=== PATIENT | male | born 1955 | race Hispanic/Latino ===

== ENCOUNTER 2018-03-27 14:07 | Inpatient (IN) | payer MEDICARE ==
[2018-03-27 14:17] VITALS: BMI 21.7
--- NOTE | 2018-03-27 14:29 | ED PDOC ---
Arrival/HPI - General Chief Complaint: Trauma Time Seen by Provider: 03/27/18 14:22 Historian: Patient - History of Present Illness Narrative History of Present Illness (Text): 03/27/18 14:50 63 year old male, whose PMH includes ETOH abuse and COPD, who presents to the emergency department complaining of shortness of breath for several days. Patient is also complaining of mechanical fall landing on left rib cage 3 days ago and states having no symptoms prior to fall. No other complaints were made. Time/Duration: < week Symptom Onset: Sudden Symptom Course: Unchanged Context: Home Past Medical History - Provider Review Nursing Documentation Reviewed: Yes - Pulmonary Hx Asthma: Yes Hx Chronic Obstructive Pulmonary Disease (COPD): Yes - Psychiatric Hx Substance Use: No - Anesthesia Hx Anesthesia: No Hx Anesthesia Reactions: No Hx Malignant Hyperthermia: No Family/Social History - Physician Review Nursing Documentation Reviewed: Yes Family/Social History: Unknown Family HX Smoking Status: Light Smoker < 10 Cigarettes Daily Hx Alcohol Use: Yes Frequency of alcohol use: Daily Hx Substance Use: No Allergies/Home Meds Allergies/Adverse Reactions: Allergies No Known Allergies Allergy (Verified 03/27/18 14:13) Review of Systems - Physician Review All systems were reviewed & negative as marked: Yes - Review of Systems Constitutional: absent: Fevers Respiratory: SOB Cardiovascular: absent: Chest Pain, Palpitations Gastrointestinal: absent: Abdominal Pain Musculoskeletal: Other (left rib cage) Physical Exam Vital Signs Reviewed: Yes Vital Signs Temp Pulse Resp BP Pulse Ox 03/27/18 16:34 103 H 18 137/79 100 03/27/18 16:16 111 H 18 147/96 H 99 03/27/18 15:46 109 H 18 197/114 H 98 03/27/18 14:15 98.2 F 115 H 20 165/97 H 93 L Temperature: Afebrile Blood Pressure: Hypertensive Pulse: Tachycardic Respiratory Rate: Agonal Appearance: Positive for: Well-Appearing, Non-Toxic, Comfortable Pain Distress: Mild Mental Status: Positive for: Alert and Oriented X 3 - Systems Exam Head: Present: Atraumatic, Normocephalic Pupils: Present: PERRL Extroacular Muscles: Present: EOMI Conjunctiva: Present: Normal Respiratory/Chest: Present: Wheezes (bilateral ). No: Clear to Auscultation, Respiratory Distress, Accessory Muscle Use, Retracting, Rhonchi Cardiovascular: Present: Regular Rate and Rhythm, Normal S1, S2. No: Murmurs Abdomen: No: Tenderness, Distention, Peritoneal Signs, Rebound, Guarding Neurological: Present: GCS=15, CN II-XII Intact, Speech Normal Skin: Present: Warm, Dry, Normal Color. No: Rashes Psychiatric: Present: Alert, Oriented x 3, Normal Insight, Normal Concentration Medical Decision Making ED Course and Treatment: 03/27/18 Impression: 63 year old male, with bilateral wheezing and mild distress, complaining of shortness of breath for several days. Plan: -- EKG -- CT head -- Chest X-ray -- Labs -- Left rib x-ray -- Duoneb, Solumedrol, and Magnesium Sulfate -- Reassess and disposition Progress Notes: EKG: Ordered, reviewed, and independently interpreted the EKG. Rate : 115 BPM Rhythm : sinus tachycardia Interpretation: LAD. No ST-segment elevations or depressions, no T-wave inversions, normal intervals. 03/27/18 18:[address] Bradshaw who examined patient in ED. Patient accepted to ICU. Spoke to Dr. Banks for admission to her service. - Lab Interpretations Lab Results: 03/27/18 15:40 03/27/18 15:40 Lab Results 03/27/18 16:32: pO2 200 H, VBG pH 7.29 L, VBG pCO2 42.0, VBG HCO3 20.2 L, VBG Total CO2 21.5 L, VBG O2 Sat (Calc) 100.5 H, VBG Base Excess -6.1 L, VBG Potassium 5.1, Glucose 99, Lactate 1.7, FiO2 21.0, Sodium 123.0 L, Chloride 88.0 L, Venous Blood Potassium 5.1 03/27/18 15:40: Alcohol, Quantitative < 10 03/27/18 15:40: Sodium 130 L, Potassium 4.8, Chloride 89 L, Carbon Dioxide 20 L , Anion Gap 26 H, BUN 55 H, Creatinine 1.1, Est GFR ( Amer) > 60, Est GFR (Non-Af Amer) > 60, Random Glucose 98, Calcium 9.3, Magnesium 2.7 H, Total Bilirubin 2.3 H, AST 233 H, ALT 81 H, Alkaline Phosphatase 89, Lactate Dehydrogenase 1106 H, Total Creatine Kinase 2450 H, CK-MB (CK-2) 29.1 H, CK-MB ( CK-2) % 1.2 L, Troponin I 0.02, NT-Pro-B Natriuret Pep 1400 H, Total Protein 7.6 , Albumin 4.4, Globulin 3.2, Albumin/Globulin Ratio 1.4 03/27/18 15:40: WBC 15.9 H, RBC 4.25, Hgb 14.1, Hct 40.2 L, MCV 94.6, MCH 33.2, MCHC 35.1, RDW 13.1, Plt Count 187, MPV 10.8, Gran % 88.0 H, Lymph % (Auto) 9.4 L, [place] % (Auto) 2.4, Eos % (Auto) 0.0 L, Baso % (Auto) 0.2, Gran # 13.98 H, Lymph # (Auto) 1.5, [place] # (Auto) 0.4, Eos # (Auto) 0.0, Baso # (Auto) 0.03 I have reviewed the lab results: Yes - RAD Interpretation Radiology Orders: 03/27/18 14:37 CHEST TWO VIEWS (PA/LAT) [RAD] Stat 03/27/18 14:39 RIBS LEFT [RAD] Stat 03/27/18 14:40 HEAD W/O CONTRAST [CT] Stat 03/27/18 16:07 ABD & PELVIS IV CONTRAST ONLY [CT] Stat 03/27/18 16:22 ANGIO CHEST PE PROTOCOL [CT] Stat Power Line Installer: Radiologist - EKG Interpretation Interpreted by ED Physician: Yes Type: 12 lead EKG - Medication Orders Current Medication Orders: Albuterol/Ipratropium (Duoneb 3 Mg/0.5 Mg (3 Ml) Ud) 3 ml IH Q15M MARISA Last Admin: 03/27/18 16:39 Dose: 3 ml Albuterol/Ipratropium (Duoneb 3 Mg/0.5 Mg (3 Ml) Ud) 3 ml IH [id number] MARISA Ceftriaxone Sodium (Rocephin 1 Gram Ivpb) 1 gm in 100 mls @ 100 mls/hr IVPB DAILY MARISA PRN Reason: Protocol Last Admin: 03/27/18 16:38 Dose: 100 mls/hr eMAR Start Stop Document 03/27/18 16:38 HI (Rec: 03/27/18 16:39 HI [id number]) Intravenous Solution Start Date 03/27/18 Start Time 16:39 Pantoprazole Sodium (Protonix 40mg Ivpb) 40 mg in 100 mls @ 20 mls/hr IVPB .Q5H MARISA Last Admin: 03/27/18 17:39 Dose: 20 mls/hr eMAR Start Stop Document 03/27/18 17:39 HI (Rec: 03/27/18 17:39 HI [id number]) Intravenous Solution Start Date 03/27/18 Start Time 17:39 Multivitamins/Vitamin C 10 ml/Thiamine HCl 100 mg/ Folic Acid 1 mg/ Sodium Chloride 1,011.2 mls @ 100 mls/hr IV .Q10H7M ONE Stop: 03/28/18 04:30 Lorazepam (Ativan) 2 mg IVP Q2H PRN; Protocol PRN Reason: Agitation Methylprednisolone (Solu-Medrol) 40 mg IVP Q8H MARISA Multivitamins/Minerals (Therapeutic-M Tab) 1 tab PO 0800 MARISA Vitamin B Complex/Vit C/Folic Acid (Nephro-Donnie) 1 tab PO 0800 MARISA Discontinued Medications Magnesium Sulfate 2 gm/ Sodium (Chloride) 104 mls @ 102 mls/hr IVPB ONCE ONE Stop: 03/27/18 15:38 Last Admin: 03/27/18 15:37 Dose: 102 mls/hr eMAR Start Stop Document 03/27/18 15:37 HI (Rec: 03/27/18 15:37 HI [id number]) Intravenous Solution Start Date 03/27/18 Start Time 15:37 Azithromycin (Zithromax 500mg In Ns) 500 mg in 250 mls @ 167 mls/hr IVPB STAT STA PRN Reason: Protocol Stop: 03/27/18 17:28 Lorazepam (Ativan) 2 mg IVP STAT STA PRN Reason: Protocol Stop: 03/27/18 17:19 Last Admin: 03/27/18 17:39 Dose: 2 mg IVP Administration Document 03/27/18 17:39 HI (Rec: 03/27/18 17:39 HI [id number]) Charges for Administration # of IVP Administrations 1 Lorazepam (Ativan) 2 mg IVP STAT STA PRN Reason: Protocol Stop: 03/27/18 18:12 Methylprednisolone (Solu-Medrol) 125 mg IVP STAT STA Stop: 03/27/18 14:38 Last Admin: 03/27/18 15:37 Dose: 125 mg IVP Administration Document 03/27/18 15:37 HI (Rec: 03/27/18 15:38 HI [id number]) Charges for Administration # of IVP Administrations 1 Pantoprazole Sodium (Protonix Inj) 40 mg IVP STAT STA Stop: 03/27/18 17:20 Last Admin: 03/27/18 17:39 Dose: 40 mg IVP Administration Document 03/27/18 17:39 HI (Rec: 03/27/18 17:39 HI [id number]) Charges for Administration # of IVP Administrations 1 - Scribe Statement The provider has reviewed the documentation as recorded by the Lisaibe Rosie Casillas Provider Scribe Attestation: All medical record entries made by the Scribe were at my direction and personally dictated by me. I have reviewed the chart and agree that the record accurately reflects my personal performance of the history, physical exam, medical decision making, and the department course for this patient. I have also personally directed, reviewed, and agree with the discharge instructions and disposition. Disposition/Present on Arrival - Present on Arrival Any Indicators Present on Arrival: No History of DVT/PE: No History of Uncontrolled Diabetes: No Urinary Catheter: No History of Decub. Ulcer: No History Surgical Site Infection Following: None - Disposition Have Diagnosis and Disposition been Completed?: Yes Diagnosis: Alcohol withdrawal delirium, Pneumonia, COPD exacerbation, Dehydration Disposition Time: 16:00 Condition: SERIOUS ED Critical Care Documentation - Critical Care Total Time (mins): 120 Documented critical care: time excludes all time spent performing seperately billable procedures.
[2018-03-27] MEDS ORDERED: Magnesium Sulfate 2 GM in Sodium Chloride 0.9% 100 ML IVPB ONE (14:37)
[2018-03-27] MEDS: Albuterol-Ipratrop 3 mg / 0.5 (3 ml) UD IH SCH ×5 (15:38→23:48)
[2018-03-27 15:50] LABS: BASO # 0.03 K/mm3 (0.0-2.0); BASO % 0.2 % (0.0-3.0); GRAN # 13.98 (1.4-6.5); HEMOGLOBIN 14.1 g/dL (14.0-18.0); LYMPH # 1.5 (1.2-3.4); LYMPH % 9.4 % (22.0-35.0); MEAN CELL VOLUME 94.6 fl (80.0-105.0); MEAN CORPUSCULAR HEMOGLOBIN 33.2 pg (25.0-35.0); MEAN CORPUSCULAR HGB CONC 35.1 g/dl (31.0-37.0); MEAN PLATELET VOLUME 10.8 fl (7.0-11.0); MONO # 0.4 (0.1-0.6); MONO % 2.4 % (1.0-6.0); RBC 4.25 10^6/uL (3.5-6.1); RED CELL DISTRIBUTION WIDTH 13.1 % (11.5-14.5); WHITE BLOOD COUNT 15.9 10^3/ul (4.5-11.0)
--- NOTE | 2018-03-27 15:53 | RAD ---
HISTORY: r/o infiltrate / PTX (s/p fall) COMPARISON: 04/09/2014 two-view chest. March 27, 2018. Left rib radiographs TECHNIQUE: Chest PA and lateral FINDINGS: LUNGS: Right lower lobe infiltrate, subsegmental PLEURA: No significant pleural effusion identified. No pneumothorax apparent. CARDIOVASCULAR: Normal. OSSEOUS STRUCTURES: Incompletely visualize common nondisplaced rib fractures better visualized on rib radiographs VISUALIZED UPPER ABDOMEN: Normal. OTHER FINDINGS: None. IMPRESSION: No pneumothorax identified common known left rib fractures. Subsegmental infiltrate/ atelectasis at the right base, finding not identified on prior chest radiograph April 09, 2014.
--- NOTE | 2018-03-27 15:55 | RAD ---
PROCEDURE: Radiographs of the Chest and Left Ribs. HISTORY: r/o fx COMPARISON: March 27, 2018. . TECHNIQUE: Frontal radiograph of the chest and multiple oblique radiographs of the left ribs were obtained. FINDINGS: LEFT RIBS: Nondisplaced posterior lateral 7th and 8th left rib fractures. LUNGS: Clear. PLEURA: No pneumothorax identified nor is there evidence of left pleural effusion. CARDIOVASCULAR: Normal sized heart. No pulmonary vascular congestion. OTHER FINDINGS: None. IMPRESSION: Contiguous nondisplaced left rib fractures.
[2018-03-27] MEDS ORDERED: Azithromycin 500MG/NS 250ml 500 MG/250 ML BAG IVPB STA (15:59)
[2018-03-27 16:01] LABS: ALB/GLOB RATIO 1.4 (1.1-1.8); ALBUMIN 4.4 g/dL (3.0-4.8); ALT/SGPT 81 U/L (7-56); AST/SGOT 233 U/L (17-59); BLOOD UREA NITROGEN 55 mg/dL (7-21); CALCIUM 9.3 mg/dL (8.4-10.5); GFR AFRICAN-AMERICAN > 60; GFR NON-AFRICAN AMERICAN > 60
[2018-03-27 16:12] LABS: B-TYPE NATRIURETIC PEPTIDE 1400 pg/mL (0-450); TROPONIN I 0.02 ng/mL
[2018-03-27] MEDS ORDERED: Iohexol 350 MG/100 ML VIAL ONE (16:19)
[2018-03-27] MEDS: cefTRIAXone 1 gm 1 GM/100 ML BAG IVPB SCH (16:38)
[2018-03-27 16:40] LABS: VENOUS BLOOD GAS BASE EXCESS -6.1 mmol/L (0.0-2.0); VENOUS BLOOD GAS PO2 200 mm/Hg (30-55); VENOUS BLOOD PH 7.29 (7.32-7.43)
[2018-03-27 16:49] LABS: CK MB% 1.2 % (2.5-3.0); CK-MB 29.1 ng/mL (0.0-3.6)
[2018-03-27 17:33] LABS: ARTERIAL BLOOD GAS HCO3 19.7 mmol/L (21-28); ARTERIAL BLOOD GAS O2 SAT 99.9 % (95-98); ARTERIAL BLOOD GAS PCO2 40 mm/Hg (35-45); ARTERIAL BLOOD GAS TCO2 20.9 mmol.L (22-28)
[2018-03-27] MEDS: Pantoprazole 40mg/100mL NS 40 MG/100 ML BAG IVPB SCH ×2 (17:39→22:55)
--- NOTE | 2018-03-27 18:05 | CP.PCM.CON ---
History of Present Illness - History of Present Illness History of Present Illness: MICU CONSULT NOTE HPI Patient is 63yo male with PMHx of COPD, smoker, EtoH abuse, presents complaining of SOB for few days. Pt reports SOB began few days ago, associated with tremors, and anxiety. Denies fever, chills, cough, chest pain, palpitations , [place], dizziness. No other constitutional symptoms. Pt notes his last drink was this morning. In the ER patient with diffuse wheezing, SOB, in distress, placed on BIPAP. PMHx as above PSHx as above Meds as per EMR ROS as above FHx NC Social smokes 1 pk per day, +EtOH, denies illicit drug use Review of Systems - Review of Systems Review of Systems: as per HPI Past Patient History - Past Social History Smoking Status: Light Smoker < 10 Cigarettes Daily - PULMONARY Hx Asthma: Yes Hx Chronic Obstructive Pulmonary Disease (COPD): Yes - PSYCHIATRIC Hx Substance Use: No - ANESTHESIA Hx Anesthesia: No Hx Anesthesia Reactions: No Hx Malignant Hyperthermia: No Meds Allergies/Adverse Reactions: Allergies Allergy/AdvReac Type Severity Reaction Status Date / Time No Known Allergies Allergy Verified 03/27/18 14:13 - Medications Medications: Current Medications Albuterol/Ipratropium (Duoneb 3 Mg/0.5 Mg (3 Ml) Ud) 3 ml Q15M [facility] Last Admin: 03/27/18 16:39 Dose: 3 ml Ceftriaxone Sodium (Rocephin 1 Gram Ivpb) 1 gm in 100 mls @ 100 mls/hr IVPB DAILY [facility] PRN Reason: Protocol Last Admin: 03/27/18 16:38 Dose: 100 mls/hr Pantoprazole Sodium (Protonix 40mg Ivpb) 40 mg in 100 mls @ 20 mls/hr IVPB .Q5H [facility] Last Admin: 03/27/18 17:39 Dose: 20 mls/hr Physical Exam - Constitutional Appears: In Acute Distress, Unkempt, Cachectic - Head Exam Head Exam: NORMAL INSPECTION - Eye Exam Eye Exam: Normal appearance - ENT Exam ENT Exam: Mucous Membranes Dry - Neck Exam Neck exam: Positive for: Full Rom - Respiratory Exam Respiratory Exam: Wheezes - Cardiovascular Exam Cardiovascular Exam: Tachycardia, REGULAR RHYTHM, +S1, +S2 - GI/Abdominal Exam GI & Abdominal Exam: Normal Bowel Sounds, Soft - Extremities Exam Extremities exam: Positive for: normal inspection Additional comments: +tremors Results - Vital Signs Recent Vital Signs: Last Vital Signs Temp 98.2 F 03/27/18 14:15 Pulse 103 H 03/27/18 16:34 Resp 18 03/27/18 16:34 BP 137/79 03/27/18 16:34 Pulse Ox 100 03/27/18 16:34 - Labs Result Diagrams: 03/27/18 15:40 03/27/18 15:40 Labs: Laboratory Results - last 24 hr 03/27/18 03/27/18 03/27/18 15:40 15:40 15:40 WBC 15.9 H RBC 4.25 Hgb 14.1 Hct 40.2 L MCV 94.6 MCH 33.2 MCHC 35.1 RDW 13.1 Plt Count 187 MPV 10.8 Gran % 88.0 H Lymph % (Auto) 9.4 L [place] % (Auto) 2.4 Eos % (Auto) 0.0 L Baso % (Auto) 0.2 Gran # 13.98 H Lymph # (Auto) 1.5 [place] # (Auto) 0.4 Eos # (Auto) 0.0 Baso # (Auto) 0.03 pCO2 pO2 HCO3 ABG pH ABG Total CO2 ABG O2 Saturation ABG Base Excess ABG Potassium VBG pH VBG pCO2 VBG HCO3 VBG Total CO2 VBG O2 Sat (Calc) VBG Base Excess VBG Potassium Glucose Lactate FiO2 Pressure Support Inspiratory BiPAP Sodium 130 L Potassium 4.8 Chloride 89 L Carbon Dioxide 20 L Anion Gap 26 H BUN 55 H Creatinine 1.1 Est GFR ( Amer) > 60 Est GFR (Non-Af Amer) > 60 Random Glucose 98 Calcium 9.3 Magnesium 2.7 H Total Bilirubin 2.3 H AST 233 H ALT 81 H Alkaline Phosphatase 89 Lactate Dehydrogenase 1106 H Total Creatine Kinase 2450 H CK-MB (CK-2) 29.1 H CK-MB (CK-2) % 1.2 L Troponin I 0.02 NT-Pro-B Natriuret Pep 1400 H Total Protein 7.6 Albumin 4.4 Globulin 3.2 Albumin/Globulin Ratio 1.4 Arterial Blood Potassium Venous Blood Potassium Alcohol, Quantitative < 10 03/27/18 03/27/18 16:32 17:25 WBC RBC Hgb Hct MCV MCH MCHC RDW Plt Count MPV Gran % Lymph % (Auto) [place] % (Auto) Eos % (Auto) Baso % (Auto) Gran # Lymph # (Auto) [place] # (Auto) Eos # (Auto) Baso # (Auto) pCO2 40 pO2 200 H 177.0 H HCO3 19.7 L ABG pH 7.30 L ABG Total CO2 20.9 L ABG O2 Saturation 99.9 H ABG Base Excess -6.3 L ABG Potassium 4.2 VBG pH 7.29 L VBG pCO2 42.0 VBG HCO3 20.2 L VBG Total CO2 21.5 L VBG O2 Sat (Calc) 100.5 H VBG Base Excess -6.1 L VBG Potassium 5.1 Glucose 99 103 Lactate 1.7 1.1 FiO2 21.0 40.0 Pressure Support 7 Inspiratory BiPAP 12 Sodium 123.0 L 126.0 L Potassium Chloride 88.0 L 92.0 L Carbon Dioxide Anion Gap BUN Creatinine Est GFR ( Amer) Est GFR (Non-Af Amer) Random Glucose Calcium Magnesium Total Bilirubin AST ALT Alkaline Phosphatase Lactate Dehydrogenase Total Creatine Kinase CK-MB (CK-2) CK-MB (CK-2) % Troponin I NT-Pro-B Natriuret Pep Total Protein Albumin Globulin Albumin/Globulin Ratio Arterial Blood Potassium 4.2 Venous Blood Potassium 5.1 Alcohol, Quantitative Assessment & Plan - Assessment and Plan (Free Text) Assessment: 63yo male a/w SOB SOB COPD exacerbation PNA Leukocytosis EtOh withdrawal rule out pNA - currently afebrile, HD stable, in mild distress, with diffuse end exp wheezing , placed on BIPAP, ABG pending - on exam in active EtOH withdrawal - Labs noted Recommend: - cont with BIPAP as tolerated, obtain ABG - Duonebs Qh4r - Solumedrol 40mg IV q8hr - Rocephin, Azithro - CT Chest - CT head without contrast - Panculture, UCx, BCx, Procal - Urine Lg, Strep - IVF hydration - MVT, Thiamine, Folic Acid - Ativan 2mg Q2hr PRN - may need Precedex drip - IV Protonix - Check FOBT, Stool occult - NPO - Monitor in MICU Critical care time 35 minutes
--- NOTE | 2018-03-27 18:15 | CT ---
PROCEDURE: CT HEAD WITHOUT CONTRAST. HISTORY: Intracranial hemorrhage suspected. COMPARISON: None available. TECHNIQUE: Axial computed tomography images were obtained through the head/brain without intravenous contrast. Coronal and sagittal reconstructed images. Radiation dose: Total exam DLP = 1224.12 mGy-cm. This CT exam was performed using one or more of the following dose reduction techniques: Automated exposure control, adjustment of the mA and/or kV according to patient size, and/or use of iterative reconstruction technique. FINDINGS: HEMORRHAGE: No intracranial hemorrhage. BRAIN: No mass effect or edema. Cortical atrophy, periventricular small vessel disease. VENTRICLES: Unremarkable. No hydrocephalus. CALVARIUM: Unremarkable. PARANASAL SINUSES: Bilateral maxillary mucous retention cyst left larger than right. MASTOID AIR CELLS: Unremarkable as visualized. No inflammatory changes. OTHER FINDINGS: None. IMPRESSION: No acute intracranial abnormalities. No significant findings to account for the clinical presentation.
[2018-03-27] MEDS ORDERED: Multivitamin (MVI) 10 ML, Thiamine 100 MG, Folic Acid 1 MG in Sodium Chloride 0.9% 1,00... IV ONE (18:24)
--- NOTE | 2018-03-27 18:28 | CT ---
PROCEDURE: CT Abdomen and Pelvis with contrast HISTORY: Left upper quadrant tenderness. COMPARISON: None. TECHNIQUE: Contrast dose: 100 cc Omnipaque 350. Radiation dose: Total exam DLP = 1311.84 mGy-cm. This CT exam was performed using one or more of the following dose reduction techniques: Automated exposure control, adjustment of the mA and/or kV according to patient size, and/or use of iterative reconstruction technique. FINDINGS: LOWER THORAX: UnremarkableRight lower lobe infiltrate/atelectasis. Open. LIVER: Hepatic steatosis. No focal masses. No intrahepatic bile duct dilatation or perihepatic ascites. GALLBLADDER AND BILE DUCTS: Unremarkable. PANCREAS: Unremarkable. No gross lesion or ductal dilatation. SPLEEN: Unremarkable. ADRENALS: Unremarkable. No mass. KIDNEYS AND URETERS: Unremarkable. No hydronephrosis. No solid mass. VASCULATURE: Unremarkable. No aortic aneurysm. BOWEL: Unremarkable. No obstruction. No gross mural thickening. APPENDIX: Normal appendix. PERITONEUM: Unremarkable. No free fluid. No free air. LYMPH NODES: Unremarkable. No enlarged lymph nodes. BLADDER: Diffusely thickened bladder wall the most likely etiology is cystitis. REPRODUCTIVE: Unremarkable. BONES: No acute fracture. OTHER FINDINGS: None. IMPRESSION: Diffusely thickened bladder wall likely cystitis. Additional benign and/or incidental findings described above.
--- NOTE | 2018-03-27 18:36 | CT ---
PROCEDURE: CT Chest with contrast (Pulmonary Angiogram) HISTORY: SOB r/o PE COMPARISON: None available. TECHNIQUE: Axial computed tomography images were obtained of the chest in the pulmonary arterial phase of enhancement. Coronal and sagittal reformatted images were created and reviewed. Intravenous contrast dose: 100 cc Omnipaque 350. Mean Hounsfield unit values in the main pulmonary artery: 272.75 Radiation dose: Total exam DLP = 1311.41 mGy-cm. This CT exam was performed using one or more of the following dose reduction techniques: Automated exposure control, adjustment of the mA and/or kV according to patient size, and/or use of iterative reconstruction technique. FINDINGS: PULMONARY ARTERIES: Unremarkable. No pulmonary embolism. AORTA: No acute findings. No thoracic aortic aneurysm. LUNGS: Hyperinflation/manifestations. Right lower lobe infiltrate. PLEURAL SPACES: Unremarkable. No effusion or pneuomothorax. HEART: Unremarkable. No cardiomegaly. No significant pericardial effusion. LYMPH NODES: No lymphadenopathy. BONES, CHEST WALL: Nondisplaced, contiguous posterior lateral left healing rib fractures. OTHER FINDINGS: Unremarkable. IMPRESSION: Unremarkable CT pulmonary angiogram. No pulmonary embolus. Right lower lobe infiltrate likely pneumonia based on appearance. Additional benign and/or incidental findings described above.
[2018-03-27] MEDS: MethylPREDNISolone 40 mg Vial IVP SCH (19:43)
[2018-03-27] MEDS ORDERED: Pneumococcal 23-Valent Vaccine IM ONE (20:09)
[2018-03-28] MEDS: MethylPREDNISolone 40 mg Vial IVP SCH ×3 (01:38→22:07)
[2018-03-28] MEDS: Pantoprazole 40mg/100mL NS 40 MG/100 ML BAG IVPB SCH ×2 (03:36→09:32)
[2018-03-28] MEDS: Albuterol-Ipratrop 3 mg / 0.5 (3 ml) UD IH SCH ×5 (05:08→21:00)
[2018-03-28 06:52] LABS: BASO # 0.02 K/mm3 (0.0-2.0); BASO % 0.2 % (0.0-3.0); GRAN # 8.55 (1.4-6.5); GRAN % 89.3 % (50.0-68.0); HEMOGLOBIN 12.2 g/dL (14.0-18.0); LYMPH # 0.6 (1.2-3.4); LYMPH % 6.2 % (22.0-35.0); MEAN CELL VOLUME 96.5 fl (80.0-105.0); MEAN CORPUSCULAR HEMOGLOBIN 32.9 pg (25.0-35.0); MEAN CORPUSCULAR HGB CONC 34.1 g/dl (31.0-37.0); MEAN PLATELET VOLUME 11.1 fl (7.0-11.0); MONO # 0.4 (0.1-0.6); MONO % 4.3 % (1.0-6.0); RBC 3.71 10^6/uL (3.5-6.1); RED CELL DISTRIBUTION WIDTH 13.1 % (11.5-14.5); WHITE BLOOD COUNT 9.6 10^3/ul (4.5-11.0)
[2018-03-28 07:08] LABS: ALB/GLOB RATIO 1.2 (1.1-1.8); ALBUMIN 3.4 g/dL (3.0-4.8); ALT/SGPT 73 U/L (7-56); AST/SGOT 171 U/L (17-59); BLOOD UREA NITROGEN 33 mg/dL (7-21); CALCIUM 8.2 mg/dL (8.4-10.5); GFR AFRICAN-AMERICAN > 60; GFR NON-AFRICAN AMERICAN > 60
[2018-03-28] MEDS: cefTRIAXone 1 gm 1 GM/100 ML BAG IVPB SCH (09:27)
[2018-03-28] MEDS: Multivitamin Vitamin B Complex (Nephro-Vite) Tab PO SCH (09:27)
[2018-03-28] MEDS: Multivitamin With Minerals Tab PO SCH (09:27)
[2018-03-28] MEDS: Azithromycin 500MG/NS 250ml 500 MG/250 ML BAG IVPB SCH (09:28)
--- NOTE | 2018-03-28 10:09 | CARD ---
APPROVED REPORT EKG Measurement Heart [id number] <Conclusion> Sinus tachycardia Left axis deviation/LAHB RVCD PRWP
--- NOTE | 2018-03-28 10:36 | CP.CCUPN ---
<Hector Jung - Last Filed: 03/28/18 12:33> CCU Subjective - Physician Review Subjective (Free Text): ICU Progress Note Pt seen and examined at bedside. No acute overnight events. Patient complaining of "shaky" voice. Pt states tremors are unchanged since admission. Pt states that breathing is improved with treatments. Pt denies CP, nausea, vomiting, diarrhea, abdominal pain, fever, ESCALANTE, or dizziness. CCU Objective - Vital Signs / Intake & Output Vital Signs (Last 4 hours): Vital Signs Pulse Resp BP Pulse Ox 03/28/18 07:50 93 H 20 97 03/28/18 07:40 105 H 25 H 97 03/28/18 07:30 94 H 17 100 03/28/18 07:20 86 19 96 03/28/18 07:10 95 H 22 89 L 03/28/18 07:00 87 23 114/72 98 03/28/18 06:50 85 16 98 03/28/18 06:40 81 27 H 100 Intake and Output (Last 8hrs): Intake & Output 03/27/18 03/28/18 03/28/18 22:59 06:59 14:59 Intake Total 1240 Output Total 1100 Balance 140 Weight 72.575 kg Intake: IV 1240 Left Antecubital 1240 Output: Urine 1100 Urethral (Jacob) 1100 Other: Voiding Method Indwelling Catheter - Physical Exam Head: Positive for: Atraumatic, Normocephalic, Laceration (bridge of nose, healing) Pupils: Positive for: PERRL Extroacular Muscles: Positive for: EOMI Conjunctiva: Positive for: Normal Mouth: Positive for: Moist Mucous Membranes Neck: Positive for: Normal Range of Motion Respiratory/Chest: Positive for: Wheezes (bilateral ). Negative for: Clear to Auscultation, Respiratory Distress, Accessory Muscle Use, Retracting, Rhonchi Cardiovascular: Positive for: Regular Rate and Rhythm, Normal S1, S2. Negative for: Murmurs Abdomen: Negative for: Tenderness, Distention, Peritoneal Signs, Rebound, Guarding Neurological: Positive for: GCS=15, CN II-XII Intact, Speech Normal Skin: Positive for: Warm, Dry, Normal Color. Negative for: Rashes Psychiatric: Positive for: Alert, Oriented x 3, Normal Insight, Normal Concentration - Medications Active Medications: Active Medications Generic Name Dose Route Start Last Admin Trade Name Freq PRN Reason Stop Dose Admin Albuterol/Ipratropium 3 ml 03/27/18 14:45 03/27/18 16:39 Duoneb 3 Mg/0.5 Mg (3 Ml) Ud IH 3 ml Q15M MARISA Administration Albuterol/Ipratropium 3 ml 03/27/18 19:30 03/28/18 07:10 Duoneb 3 Mg/0.5 Mg (3 Ml) Ud IH 3 ml [id number] MARISA Administration Heparin Sodium (Porcine) 5,000 units 03/28/18 08:00 03/28/18 09:26 Heparin SC 5,000 units Q8 MARISA Administration Protocol Ceftriaxone Sodium 1 gm in 100 mls @ 100 mls/hr 03/27/18 16:00 03/28/18 09:27 Rocephin 1 Gram Ivpb IVPB 100 mls/hr DAILY MARISA Administration Protocol Pantoprazole Sodium 40 mg in 100 mls @ 20 mls/hr 03/27/18 17:30 03/28/18 09: 32 Protonix 40mg Ivpb IVPB 20 mls/hr .Q5H MARISA Administration Azithromycin 500 mg in 250 mls @ 167 mls/hr 03/28/18 10:00 03/28/18 09:28 Zithromax 500mg In Ns IVPB 167 mls/hr DAILY MARISA Administration Protocol Lorazepam 2 mg 03/27/18 18:18 03/28/18 09:26 Ativan IVP 2 mg Q2H PRN Administration Agitation Protocol Methylprednisolone 40 mg 03/27/18 18:30 03/28/18 01:38 Solu-Medrol IVP 40 mg Q8H MARISA Administration Multivitamins/Minerals 1 tab 03/28/18 08:00 03/28/18 09:27 Therapeutic-M Tab PO 1 tab 0800 MARISA Administration Vitamin B Complex/Vit C/Folic Acid 1 tab 03/28/18 08:00 03/28/18 09:27 Nephro-Donnie PO 1 tab 0800 MARISA Administration - Patient Studies Lab Studies: Lab Studies 03/28/18 03/28/18 03/27/18 Range/Units 05:25 05:25 21:05 WBC 9.6 D (4.5-11.0) 10^3/ul RBC 3.71 (3.5-6.1) 10^6/uL Hgb 12.2 L (14.0-18.0) g/dL Hct 35.8 L (42.0-52.0) % MCV 96.5 (80.0-105.0) fl MCH 32.9 (25.0-35.0) pg MCHC 34.1 (31.0-37.0) g/dl RDW 13.1 (11.5-14.5) % Plt Count 175 (120.0-450.0) 10^3/uL MPV 11.1 H (7.0-11.0) fl Gran % 89.3 H (50.0-68.0) % Lymph % (Auto) 6.2 L (22.0-35.0) % Hudson % (Auto) 4.3 (1.0-6.0) % Eos % (Auto) 0.0 L (1.5-5.0) % Baso % (Auto) 0.2 (0.0-3.0) % Gran # 8.55 H (1.4-6.5) Lymph # (Auto) 0.6 L (1.2-3.4) Hudson # (Auto) 0.4 (0.1-0.6) Eos # (Auto) 0.0 (0.0-0.7) Baso # (Auto) 0.02 (0.0-2.0) K/mm3 Sodium 136 (132-148) mmol/L Potassium 4.5 (3.6-5.0) mmol/L Chloride 97 L (98-107) mmol/L Carbon Dioxide 27 (21-33) mmol/L Anion Gap 17 (10-20) BUN 33 H (7-21) mg/dL Creatinine 0.7 L (0.8-1.5) mg/dl Est GFR ( Amer) > 60 Est GFR (Non-Af Amer) > 60 Random Glucose 149 H (70-110) mg/dL Calcium 8.2 L (8.4-10.5) mg/dL Phosphorus 2.9 (2.5-4.5) mg/dL Magnesium 2.6 H (1.7-2.2) mg/dL Total Bilirubin 1.1 (0.2-1.3) mg/dL AST 171 H D (17-59) U/L ALT 73 H (7-56) U/L Alkaline Phosphatase 64 (38-126) U/L Ammonia < 9 L (9-33) umol/L Total Protein 6.1 (5.8-8.3) g/dL Albumin 3.4 (3.0-4.8) g/dL Globulin 2.7 gm/dL Albumin/Globulin Ratio 1.2 (1.1-1.8) Laboratory Results - last 24 hr 03/27/18 03/28/18 03/28/18 21:05 05:25 05:25 WBC 9.6 D RBC 3.71 Hgb 12.2 L Hct 35.8 L MCV 96.5 MCH 32.9 MCHC 34.1 RDW 13.1 Plt Count 175 MPV 11.1 H Gran % 89.3 H Lymph % (Auto) 6.2 L Hudson % (Auto) 4.3 Eos % (Auto) 0.0 L Baso % (Auto) 0.2 Gran # 8.55 H Lymph # (Auto) 0.6 L Hudson # (Auto) 0.4 Eos # (Auto) 0.0 Baso # (Auto) 0.02 Sodium 136 Potassium 4.5 Chloride 97 L Carbon Dioxide 27 Anion Gap 17 BUN 33 H Creatinine 0.7 L Est GFR ( Amer) > 60 Est GFR (Non-Af Amer) > 60 Random Glucose 149 H Calcium 8.2 L Phosphorus 2.9 Magnesium 2.6 H Total Bilirubin 1.1 AST 171 H D ALT 73 H Alkaline Phosphatase 64 Ammonia < 9 L Total Protein 6.1 Albumin 3.4 Globulin 2.7 Albumin/Globulin Ratio 1.2 Critical Care Progress Note - Nutrition Nutrition: Nutrition Category Date Time Status Regular Diet [DIET] Diets 03/28/18 Breakfast Ordered Assessment/Plan - Assessment and Plan (Free Text) Assessment: 63 yo M with PMH of alcohol abuse, tobacco abuse, and COPD presented to ED admitted to ICU for COPD exacerbation and alcohol abuse/withdrawal with the possible need for Precedex drip, which was ultimately not required. Patient will be transferred to med/surg. Plan: Neuro: - AAOx3 - Head CT reviewed and is negative - Maintain normothermia - CIWA protocol - Ativan PRN for EtOH withdrawal - Banana bag discontinued - MV, Thiamine, Folate CV: - Hemodynamically stable - EKG reviewed and showed sinus tachycardia with rate of 115 and LAD - BNP 1400 - Maintain MAP > 65 - F/u Echo Pulm: - Maintain O2 sat 88-92% in setting of COPD - Duoneb scheduled and PRN - Solumedrol 40 mg IVP Q8H - Pulm consulted GI: - Elevated LFT's likely 2/2 to EtOH abuse - F/u FOBT, stool occult - Regular diet - Protonix for GI PPx : - CT abd/pelvis significant for cystitis - Monitor I's/O's - Maintain euvolemia - Avoid nephrotoxic medications ID: - Afebrile, leukocytosis - F/u Legionella AG, Strep pneumo Ag - F/u Blood cultures, urine cultures, and MRSA screen - Cont Rocephin and Azithromycin MSK: - Rib x-ray showed non-displaced fractures to lateral 7th and 8th ribs Heme: - Heparin for DVT ppx Endo: - Maintain euglycemia Pt was seen and discussed in detail with Dr. Mcgee. Beto Jung, PGY1 <Jay Hoff - Last Filed: 03/28/18 15:25> CCU Objective - Vital Signs / Intake & Output Vital Signs (Last 4 hours): Vital Signs Pulse Resp BP Pulse Ox 03/28/18 11:29 119/89 03/28/18 11:28 107 H 37 H 84 L Intake and Output (Last 8hrs): Intake & Output 03/28/18 03/28/18 03/28/18 06:59 14:59 22:59 Intake Total 1240 870 Output Total 1100 300 Balance 140 570 Intake: IV 1240 450 IVPB 350 Left Antecubital 1240 Protonix 100 Oral 420 Output: Urine 1100 300 Urethral (Jacob) 1100 300 - Medications Active Medications: Active Medications Generic Name Dose Route Start Last Admin Trade Name Freq PRN Reason Stop Dose Admin Albuterol/Ipratropium 3 ml 03/27/18 14:45 03/27/18 16:39 Duoneb 3 Mg/0.5 Mg (3 Ml) Ud IH 3 ml Q15M MARISA Administration Albuterol/Ipratropium 3 ml 03/27/18 19:30 03/28/18 11:10 Duoneb 3 Mg/0.5 Mg (3 Ml) Ud IH 3 ml [id number] MARISA Administration Folic Acid 1 mg 03/29/18 10:00 Folic Acid PO DAILY MARISA Heparin Sodium (Porcine) 5,000 units 03/28/18 08:00 03/28/18 09:26 Heparin SC 5,000 units Q8 MARISA Administration Protocol Ceftriaxone Sodium 1 gm in 100 mls @ 100 mls/hr 03/27/18 16:00 03/28/18 09:27 Rocephin 1 Gram Ivpb IVPB 100 mls/hr DAILY MARISA Administration Protocol Azithromycin 500 mg in 250 mls @ 167 mls/hr 03/28/18 10:00 03/28/18 09:28 Zithromax 500mg In Ns IVPB 167 mls/hr DAILY MARISA Administration Protocol Lorazepam 2 mg 03/27/18 18:18 03/28/18 12:57 Ativan IVP 2 mg Q2H PRN Administration Agitation Protocol Methylprednisolone 40 mg 03/28/18 14:45 Solu-Medrol IVP Q8H [facility] Multivitamins/Minerals 1 tab 03/28/18 08:00 03/28/18 09:27 Therapeutic-M Tab PO 1 tab 0800 MARISA Administration Nicotine 1 patch 03/28/18 11:15 03/28/18 11:28 Nicoderm Cq TD 1 patch DAILY MARISA Administration Pantoprazole Sodium 40 mg 03/29/18 07:30 Protonix Ec Tab PO ACB MARISA Thiamine HCl 200 mg 03/29/18 10:00 Vitamin B1 Tab PO DAILY MARISA Vitamin B Complex/Vit C/Folic Acid 1 tab 03/28/18 08:00 03/28/18 09:27 Nephro-Donnie PO 1 tab 0800 MARISA Administration - Patient Studies Lab Studies: Lab Studies 03/28/18 03/28/18 03/27/18 Range/Units 05:25 05:25 21:05 WBC 9.6 D (4.5-11.0) 10^3/ul RBC 3.71 (3.5-6.1) 10^6/uL Hgb 12.2 L (14.0-18.0) g/dL Hct 35.8 L (42.0-52.0) % MCV 96.5 (80.0-105.0) fl MCH 32.9 (25.0-35.0) pg MCHC 34.1 (31.0-37.0) g/dl RDW 13.1 (11.5-14.5) % Plt Count 175 (120.0-450.0) 10^3/uL MPV 11.1 H (7.0-11.0) fl Gran % 89.3 H (50.0-68.0) % Lymph % (Auto) 6.2 L (22.0-35.0) % Hudson % (Auto) 4.3 (1.0-6.0) % Eos % (Auto) 0.0 L (1.5-5.0) % Baso % (Auto) 0.2 (0.0-3.0) % Gran # 8.55 H (1.4-6.5) Lymph # (Auto) 0.6 L (1.2-3.4) Hudson # (Auto) 0.4 (0.1-0.6) Eos # (Auto) 0.0 (0.0-0.7) Baso # (Auto) 0.02 (0.0-2.0) K/mm3 Sodium 136 (132-148) mmol/L Potassium 4.5 (3.6-5.0) mmol/L Chloride 97 L (98-107) mmol/L Carbon Dioxide 27 (21-33) mmol/L Anion Gap 17 (10-20) BUN 33 H (7-21) mg/dL Creatinine 0.7 L (0.8-1.5) mg/dl Est GFR ( Amer) > 60 Est GFR (Non-Af Amer) > 60 Random Glucose 149 H (70-110) mg/dL Calcium 8.2 L (8.4-10.5) mg/dL Phosphorus 2.9 (2.5-4.5) mg/dL Magnesium 2.6 H (1.7-2.2) mg/dL Total Bilirubin 1.1 (0.2-1.3) mg/dL AST 171 H D (17-59) U/L ALT 73 H (7-56) U/L Alkaline Phosphatase 64 (38-126) U/L Ammonia < 9 L (9-33) umol/L Total Protein 6.1 (5.8-8.3) g/dL Albumin 3.4 (3.0-4.8) g/dL Globulin 2.7 gm/dL Albumin/Globulin Ratio 1.2 (1.1-1.8) Laboratory Results - last 24 hr 03/27/18 03/28/18 03/28/18 21:05 05:25 05:25 WBC 9.6 D RBC 3.71 Hgb 12.2 L Hct 35.8 L MCV 96.5 MCH 32.9 MCHC 34.1 RDW 13.1 Plt Count 175 MPV 11.1 H Gran % 89.3 H Lymph % (Auto) 6.2 L [place] % (Auto) 4.3 Eos % (Auto) 0.0 L Baso % (Auto) 0.2 Gran # 8.55 H Lymph # (Auto) 0.6 L Hudson # (Auto) 0.4 Eos # (Auto) 0.0 Baso # (Auto) 0.02 Sodium 136 Potassium 4.5 Chloride 97 L Carbon Dioxide 27 Anion Gap 17 BUN 33 H Creatinine 0.7 L Est GFR ( Amer) > 60 Est GFR (Non-Af Amer) > 60 Random Glucose 149 H Calcium 8.2 L Phosphorus 2.9 Magnesium 2.6 H Total Bilirubin 1.1 AST 171 H D ALT 73 H Alkaline Phosphatase 64 Ammonia < 9 L Total Protein 6.1 Albumin 3.4 Globulin 2.7 Albumin/Globulin Ratio 1.2 Critical Care Progress Note - Nutrition Nutrition: Nutrition Category Date Time Status Regular Diet [DIET] Diets 03/28/18 Breakfast Ordered Attending/Attestation - Attestation I have personally seen and examined this patient.: Yes I have fully participated in the care of the patient.: Yes I have reviewed all pertinent clinical information: Yes Notes (Text): 03/28/18 15:[address] Hoff note
--- NOTE | 2018-03-28 10:52 | HP ---
CHIEF COMPLAINT: Trauma, ethanol abuse. HISTORY OF PRESENT ILLNESS: Mr. Kody Schultz is a 63-year-old male with past medical history of ethanol abuse, COPD, came to the Emergency Department complaining of shortness of breath for several days. The patient is also complaining of mechanical fall landing on left ribcage three days ago and stated having no symptoms prior to fall. No other complaints were made. I saw the patient in the unit having the BiPAP. PAST MEDICAL HISTORY: COPD, history of ethanol abuse, noncompliant. FAMILY HISTORY: Father and mother, noncontributory. HABITS: Smoking, light smoker, less than 10 cigarettes a day. Alcohol, yes. Substance abuse, no. ALLERGIES: THE PATIENT IS NOT ALLERGIC WITH ANY MEDICATIONS. REVIEW OF SYSTEMS: The patient was seen and examined on the unit, sleepy, arousable, using BiPAP, fatigue, shortness of breath. No chest pain, no palpitation. No abdominal pain. Left ribcage pain actually. PHYSICAL EXAMINATION: VITAL SIGNS: Temperature 98.2, pulse 115, respiratory rate 20, blood pressure 115/97. HEENT: Head normocephalic, atraumatic. Eyes, PERRLA. Extraocular muscles intact. Conjunctivae clear. Nose patent. Mucous membrane moist. NECK: Supple. No carotid bruit. No JVD or thyromegaly. CHEST: Bilaterally symmetrical. HEART: S1 and S2 positive. LUNGS: Clear to auscultation. ABDOMEN: Soft. Bowel sounds positive. No organomegaly. EXTREMITIES: No edema. No cyanosis. NEUROLOGICAL: The patient is sleepy, arousable. LABORATORY DATA: White blood cell is 15.9, hemoglobin 14.1, hematocrit 40.2, platelets 187. Sodium 130, potassium 4.8, BUN 55, creatinine 1.1, glucose 98. ASSESSMENT AND PLAN: Mr. Kody Schultz is a 63-year-old male with leukocytosis, thrombocytopenia, hyponatremia, hypochloremia, renal insufficiency, history of ethanol abuse, came with alcohol withdrawal, delirium, pneumonia, chronic obstructive pulmonary disease exacerbation and dehydration. We admitted the patient in the unit, started BiPAP. Consult Dr. Lr. We will repeat gastrointestinal and deep venous thrombosis prophylaxis. Repeat labs. We will follow up. Susanne Banks MD [facility] # [id number] N[facility]
--- NOTE | 2018-03-28 14:12 | PN ---
DATE: 03/28/2018 SUBJECTIVE: The patient is seen and examined at bedside. He is comfortable. He talks full sentences. OBJECTIVE: GENERAL: He is alert, awake and oriented x3. He is not in respiratory or otherwise distress. VITAL SIGNS: Heart rate 100, blood pressure 113/72, oxygen saturation 98% on 2 liters nasal cannula, respiratory rate 21. ENT: Head and neck atraumatic. LUNGS: Clear to auscultation bilaterally. HEART: Regular rate and rhythm. S1, S2 normal. ABDOMEN: Soft, nontender, nondistended. MUSCULOSKELETAL: No C/C/E. NEUROLOGICAL: The patient moves all extremities spontaneously. SKIN: Moist. PSYCHIATRIC: The patient is alert and oriented x3. LABORATORY DATA: Sodium 136, potassium 4.5, chloride 97, carbon dioxide 27, BUN 33, creatinine 0.7 down from 1.1, glucose 129, AST 171, ALT 273, total bilirubin 1.1 down from 2.3. Troponin 0.02. ProBNP 1400. MEDICATIONS: DuoNeb every 4 hrs, Protonix, ceftriaxone, azithromycin. ASSESSMENT AND PLAN: This is 63-year-old gentleman who was admitted to intensive care unit with chronic obstructive pulmonary disease exacerbation and ETOH withdrawal. At present time, he is substantially clinically improved. He is not in respiratory or otherwise distress. His acute kidney injury resolved. His LFTs are trending down. His total bilirubin is trending down. He is alert, awake and oriented x3. He is a little bit of tremulous; however, not confused with adequate attention span. He had uneventful night with good nighttime sleep. He is on benzodiazepines p.r.n. for alcohol withdrawal. At present time, we will continue with antibiotics, steroid taper, bronchodilators. He is protecting his airways very well. We will do bedside swallow evaluation and if passed, we will start diet. We will continue to target euvolemia, euglycemia, normothermia and oxygen saturation more than 90%. We will continue with DVT and GI prophylaxis. ccm time 40 min Jay Hoff MD [facility]
--- NOTE | 2018-03-28 19:32 | CP.PCM.CON ---
History of Present Illness - History of Present Illness History of Present Illness: Infectious Disease Consultation: March 28, 2018 63 yo male with COPD and EtOH abuse history presenting with several days of SOB. Imaging studies suggesting RLL pneumonia and possible cystitis. Patient did have a fall landing on his right side specifically ribcage three days prior to hospitalization. Initial leukocytosis of 15.9 on admission. PMHx: COPD, EtOH abuse PSHx: none given Allergies: NKDA Social Hx: tobacco 1ppd Heavy EtOH use no illicit drug use Active Medications Albuterol/Ipratropium (Duoneb 3 Mg/0.5 Mg (3 Ml) Ud) 3 ml IH Q15M [facility] Last Admin: 03/27/18 16:39 Dose: 3 ml Albuterol/Ipratropium (Duoneb 3 Mg/0.5 Mg (3 Ml) Ud) 3 ml IH [id number] [facility] Last Admin: 03/28/18 16:02 Dose: 3 ml Folic Acid (Folic Acid) 1 mg PO DAILY [facility] Heparin Sodium (Porcine) (Heparin) 5,000 units SC Q8 MARISA PRN Reason: Protocol Last Admin: 03/28/18 15:00 Dose: 5,000 units Ceftriaxone Sodium (Rocephin 1 Gram Ivpb) 1 gm in 100 mls @ 100 mls/hr IVPB DAILY [facility] PRN Reason: Protocol Last Admin: 03/28/18 09:27 Dose: 100 mls/hr Azithromycin (Zithromax 500mg In Ns) 500 mg in 250 mls @ 167 mls/hr IVPB DAILY [facility] PRN Reason: Protocol Last Admin: 03/28/18 09:28 Dose: 167 mls/hr Lorazepam (Ativan) 2 mg IVP Q2H PRN; Protocol PRN Reason: Agitation Last Admin: 03/28/18 12:57 Dose: 2 mg Methylprednisolone (Solu-Medrol) 40 mg IVP Q8H [facility] Last Admin: 03/28/18 15:45 Dose: 40 mg Multivitamins/Minerals (Therapeutic-M Tab) 1 tab PO 0800 [facility] Last Admin: 03/28/18 09:27 Dose: 1 tab Nicotine (Nicoderm Cq) 1 patch TD DAILY [facility] Last Admin: 03/28/18 11:28 Dose: 1 patch Pantoprazole Sodium (Protonix Ec Tab) 40 mg PO ACB [facility] Thiamine HCl (Vitamin B1 Tab) 200 mg PO DAILY [facility] Vitamin B Complex/Vit C/Folic Acid (Nephro-Donnie) 1 tab PO 0800 [facility] Last Admin: 03/28/18 09:27 Dose: 1 tab Family Hx: none given ROS: no fevers, chills, nausea, vomiting, diarrhea, headaches, dizziness, chest pain , abdominal pain, melena, hematuria, hematemesis, hematochezia, depression, anxiety. Past Patient History - Past Social History Smoking Status: Heavy Smoker > 10 Cigarettes Daily - CARDIAC Hx Cardiac Disorders: Yes (tachycardia) - PULMONARY Hx Asthma: Yes Hx Chronic Obstructive Pulmonary Disease (COPD): Yes - NEUROLOGICAL Hx Neurological Disorder: No - HEENT Hx HEENT Problems: No - RENAL Hx Chronic Kidney Disease: No - ENDOCRINE/METABOLIC Hx Endocrine Disorders: No - HEMATOLOGICAL/ONCOLOGICAL Hx Blood Disorders: No - INTEGUMENTARY Hx Dermatological Problems: Yes Other/Comment: large bruise inner right thigh, multiple bruises to knees and lower legs, bruise left flank, small abrasion rle 0.5cm round bed light red, bilateral feet skaley dry skin with long thick curled toenails, skin discolorations both arms, color slightly flushed - MUSCULOSKELETAL/RHEUMATOLOGICAL Hx Falls: Yes (fell 3 days ago) - GASTROINTESTINAL Hx Gastrointestinal Disorders: No - GENITOURINARY/GYNECOLOGICAL Other/Comment: 2 way bartholomew inserted in ed for accurate i&o - PSYCHIATRIC Hx Substance Use: (unknown) - SURGICAL HISTORY Hx Surgeries: (unknown) - ANESTHESIA Hx Anesthesia: No Hx Anesthesia Reactions: No Hx Malignant Hyperthermia: No Meds Allergies/Adverse Reactions: Allergies Allergy/AdvReac Type Severity Reaction Status Date / Time No Known Allergies Allergy Verified 03/27/18 14:13 - Medications Medications: Current Medications Albuterol/Ipratropium (Duoneb 3 Mg/0.5 Mg (3 Ml) Ud) 3 ml IH Q15M [facility] Last Admin: 03/27/18 16:39 Dose: 3 ml Albuterol/Ipratropium (Duoneb 3 Mg/0.5 Mg (3 Ml) Ud) 3 ml IH [id number] [facility] Last Admin: 03/28/18 16:02 Dose: 3 ml Folic Acid (Folic Acid) 1 mg PO DAILY [facility] Heparin Sodium (Porcine) (Heparin) 5,000 units SC Q8 [facility] PRN Reason: Protocol Last Admin: 03/28/18 15:00 Dose: 5,000 units Ceftriaxone Sodium (Rocephin 1 Gram Ivpb) 1 gm in 100 mls @ 100 mls/hr IVPB DAILY [facility] PRN Reason: Protocol Last Admin: 03/28/18 09:27 Dose: 100 mls/hr Azithromycin (Zithromax 500mg In Ns) 500 mg in 250 mls @ 167 mls/hr IVPB DAILY [facility] PRN Reason: Protocol Last Admin: 03/28/18 09:28 Dose: 167 mls/hr Lorazepam (Ativan) 2 mg IVP Q2H PRN; Protocol PRN Reason: Agitation Last Admin: 03/28/18 12:57 Dose: 2 mg Methylprednisolone (Solu-Medrol) 40 mg IVP Q8H [facility] Last Admin: 03/28/18 15:45 Dose: 40 mg Multivitamins/Minerals (Therapeutic-M Tab) 1 tab PO 0800 [facility] Last Admin: 03/28/18 09:27 Dose: 1 tab Nicotine (Nicoderm Cq) 1 patch TD DAILY [facility] Last Admin: 03/28/18 11:28 Dose: 1 patch Pantoprazole Sodium (Protonix Ec Tab) 40 mg PO ACB [facility] Thiamine HCl (Vitamin B1 Tab) 200 mg PO DAILY [facility] Vitamin B Complex/Vit C/Folic Acid (Nephro-Donnie) 1 tab PO 0800 [facility] Last Admin: 03/28/18 09:27 Dose: 1 tab Physical Exam - Constitutional Appears: In Acute Distress, Unkempt, Cachectic - Head Exam Head Exam: ATRAUMATIC, NORMOCEPHALIC - Eye Exam Eye Exam: EOMI, PERRL Pupil Exam: NORMAL ACCOMODATION, PERRL - ENT Exam ENT Exam: Mucous Membranes Dry, Normal External Ear Exam, TM's Normal Bilaterally - Neck Exam Neck exam: Positive for: Full Rom, Normal Inspection - Respiratory Exam Respiratory Exam: Decreased Breath Sounds, Wheezes - Cardiovascular Exam Cardiovascular Exam: Tachycardia, RRR, +S1, +S2 - GI/Abdominal Exam GI & Abdominal Exam: Normal Bowel Sounds, Soft. absent: Distended, Tenderness - Extremities Exam Extremities exam: Positive for: full ROM Additional comments: tremors. - Neurological Exam Neurological exam: Alert, CN II-XII Intact, Oriented x3 - Skin Skin Exam: Intact, Warm Results - Vital Signs Recent Vital Signs: Last Vital Signs Temp 99.3 F 03/28/18 16:59 Pulse 104 H 03/28/18 16:59 Resp 19 03/28/18 16:59 BP 104/66 03/28/18 16:59 Pulse Ox 99 03/28/18 16:59 - Labs Result Diagrams: 03/28/18 05:25 03/28/18 05:25 Labs: Laboratory Results - last 24 hr 03/27/18 03/27/18 03/28/18 19:56 21:05 05:25 WBC 9.6 D RBC 3.71 Hgb 12.2 L Hct 35.8 L MCV 96.5 MCH 32.9 MCHC 34.1 RDW 13.1 Plt Count 175 MPV 11.1 H Gran % 89.3 H Lymph % (Auto) 6.2 L [place] % (Auto) 4.3 Eos % (Auto) 0.0 L Baso % (Auto) 0.2 Gran # 8.55 H Lymph # (Auto) 0.6 L [place] # (Auto) 0.4 Eos # (Auto) 0.0 Baso # (Auto) 0.02 Sodium Potassium Chloride Carbon Dioxide Anion Gap BUN Creatinine Est GFR ( Amer) Est GFR (Non-Af Amer) Random Glucose Calcium Phosphorus Magnesium Total Bilirubin AST ALT Alkaline Phosphatase Ammonia < 9 L Total Protein Albumin Globulin Albumin/Globulin Ratio Ur L.pneumophila Ag Negative 03/28/18 05:25 WBC RBC Hgb Hct MCV MCH MCHC RDW Plt Count MPV Gran % Lymph % (Auto) [place] % (Auto) Eos % (Auto) Baso % (Auto) Gran # Lymph # (Auto) [place] # (Auto) Eos # (Auto) Baso # (Auto) Sodium 136 Potassium 4.5 Chloride 97 L Carbon Dioxide 27 Anion Gap 17 BUN 33 H Creatinine 0.7 L Est GFR ( Amer) > 60 Est GFR (Non-Af Amer) > 60 Random Glucose 149 H Calcium 8.2 L Phosphorus 2.9 Magnesium 2.6 H Total Bilirubin 1.1 AST 171 H D ALT 73 H Alkaline Phosphatase 64 Ammonia Total Protein 6.1 Albumin 3.4 Globulin 2.7 Albumin/Globulin Ratio 1.2 Ur L.pneumophila Ag Assessment & Plan - Assessment and Plan (Free Text) Assessment: 63 yo male with 3 day history of SOB with PMHx of COPD and EtOH abuse. The patient with findings of RLL pneumonia on imaging studies, possible cystitis, and leukocytosis of 15.9 on admission. Started on Rocephin and Azithromycin for antibiotic care. Patient was in active ETOH withdrawal on admission. Treatment for EtOH withdrawal started on admission. Placed on BiPAP as well. Was in MICU for care initially. Continue Rocpehin and Azithromycin for care. Thank you for allowing me to participate in the care of the patient, we will follow with you.
[2018-03-29] MEDS: Albuterol-Ipratrop 3 mg / 0.5 (3 ml) UD IH SCH ×7 (00:55→23:55)
--- NOTE | 2018-03-29 04:45 | PN ---
DATE: 03/28/2018 SUBJECTIVE: Patient was seen and examined at the bedside on the floor. Night was without any event. Patient is still having tremors. No fever, no chills. No nausea, vomiting, diarrhea. No hematuria or hematochezia. No headache, no dizziness. No chest pain, no palpitation. PHYSICAL EXAMINATION: VITAL SIGNS: Temperature 98.6 ,, pulse 97, blood pressure 114/72. HEENT: Head normocephalic, atraumatic. Eyes, PERRLA. Extraocular muscles intact. Conjunctivae clear. Nose patent. Mucous membrane moist. NECK: Supple. No carotid bruit. No JVD or thyromegaly. CHEST: Bilaterally symmetrical. HEART: S1 and S2 positive. LUNGS: Clear to auscultation. ABDOMEN: Soft. Bowel sounds present. No organomegaly. EXTREMITIES: No edema. No cyanosis. NEUROLOGICAL: The patient is awake and alert. Moving all four extremities. No focal deficit. MEDICATIONS: Albuterol, heparin, ceftriaxone, Protonix, azithromycin, Ativan, Solu-Medrol, multivitamins and nephro vitamins. LABORATORY DATA: White blood cells 9.6, hemoglobin 12.2, hematocrit 35.8, platelets 175. Sodium 135, potassium 4.5, BUN 33, creatinine 0.7. AST 171. ASSESSMENT AND PLAN: Mr. Kody SchultzJr., is a 63-year-old male with history of ethanol abuse, tobacco abuse, chronic obstructive pulmonary disease, came to the emergency department, was admitted in intensive care unit for chronic obstructive pulmonary disease exacerbation, alcohol abuse and withdrawal, with possible need for Precedex drip, which was ultimately not required. Patient was transferred to medical floor. Patient is oriented x3. Got banana bag. Ativan was given for withdrawal. Multivitamin, thiamine, and folate given. Hemodynamically stable. For chronic obstructive pulmonary disease, getting DuoNeb, Solu-Medrol. Bonding Molder is on the case. Regular diet given. Gastrointestinal prophylaxis given. CT abdomen and pelvis shows cystitis. Avoid nephrotoxic medications. Afebrile with leukocytosis. Follow up Legionella antigen, Streptococcus pneumoniae antigens. Cultures are pending. Continue Rocephin, azithromycin. Rib x-ray showed nondisplaced fracture related to the 7th and 8th rib. Getting heparin for deep vein thrombosis prophylaxis. History of leukocytosis, improved; anemia; history of hyponatremia, improved; hypochloremia, renal insufficiency, hyperglycemia, abnormal liver function test, rule out rhabdomyolysis, sepsis. Gastrointestinal, deep vein thrombosis prophylaxis. ID consult called with Dr. Moreno. It looks like the patient has right lower lobe pneumonia on imaging studies, possibly cystitis. Placed patient on BiPAP. Gastrointestinal, deep vein thrombosis prophylaxis. Repeat labs. We will follow up. Susanne Banks MD MTDD
[2018-03-29 06:23] LABS: HEMOGLOBIN 11.3 g/dL (14.0-18.0); MEAN CELL VOLUME 96.6 fl (80.0-105.0); MEAN CORPUSCULAR HEMOGLOBIN 32.2 pg (25.0-35.0); MEAN CORPUSCULAR HGB CONC 33.3 g/dl (31.0-37.0); MEAN PLATELET VOLUME 10.5 fl (7.0-11.0); RBC 3.51 10^6/uL (3.5-6.1); RED CELL DISTRIBUTION WIDTH 13.2 % (11.5-14.5); WHITE BLOOD COUNT 10.3 10^3/ul (4.5-11.0)
[2018-03-29 06:43] LABS: IRON 38 ug/dL (45-180)
[2018-03-29 06:52] LABS: % IRON SATURATION 17 % (20-55); TOTAL IRON BINDING CAPACITY 217 ug/dL (261-462)
[2018-03-29 07:10] LABS: ALB/GLOB RATIO 1.1 (1.1-1.8); ALBUMIN 3.1 g/dL (3.0-4.8); ALT/SGPT 70 U/L (7-56); AST/SGOT 135 U/L (17-59); BLOOD UREA NITROGEN 21 mg/dL (7-21); CALCIUM 8.5 mg/dL (8.4-10.5); GFR AFRICAN-AMERICAN > 60; GFR NON-AFRICAN AMERICAN > 60
[2018-03-29] MEDS: Multivitamin With Minerals Tab PO SCH (08:08)
[2018-03-29] MEDS: Pantoprazole 40 mg EC Tab PO SCH (08:08)
[2018-03-29] MEDS: Multivitamin Vitamin B Complex (Nephro-Vite) Tab PO SCH (08:08)
--- NOTE | 2018-03-29 08:40 | CON ---
DATE: 03/28/2018 PULMONARY CONSULTATION REFERRING PHYSICIAN: Susanne Banks MD. REASON FOR CONSULT: Cough, shortness of breath, chronic lung disease. HISTORY OF PRESENT ILLNESS: This is a 63-year gentleman with past medical history significant for alcohol abuse, chronic obstructive lung disease, comes into emergency room with cough, shortness of breath. He had a mechanical fall with left ribcage injury. No hemoptysis, no hematemesis, no hematuria, no diarrhea reported. The patient has a respiratory insufficiency in the ER, requiring noninvasive ventilation, presently he is on nasal cannula, lying in the bed. Has some cough, shortness of breath, chest muscular type pain. No nausea, no dysuria, leg pain or leg swelling. PAST MEDICAL HISTORY: Chronic obstructive lung disease, alcohol abuse. ALLERGIES: NONE KNOWN. SOCIAL HISTORY: Positive history of smoking and alcohol abuse. FAMILY HISTORY: No significant cardiopulmonary disease reported. MEDICATIONS: He is on Ativan 2 mg every 2 hours p.r.n., DuoNeb every 4 hour [id number], folic acid 1 mg daily, heparin 5000 units subcu every 8 hours, Nephro vitamins daily, Nicoderm patch daily, Protonix 40 mg daily, Rocephin 1 g daily, Solu-Medrol 40 mg every 8 hours, multivitamins daily, vitamin B1 200 mg daily, Zithromax 500 mg daily. REVIEW OF SYSTEMS: No headache, no rhinitis. Has a cough. Not much sputum production, wheezing. Have ribcage discomfort. No nausea, no dysuria, leg pain or leg swelling. PHYSICAL EXAMINATION: GENERAL: Lying in the bed. VITAL SIGNS: Temperature is 98, heart rate is 104, respiratory rate is 20, blood pressure 104/66, pulse ox 99% on supplemental oxygen. HEENT: Moist mucous membranes. Crowded airway. NECK: Supple. No JVD. LUNGS: Have a scattered rhonchi and wheezing. HEART: S1 and S2. ABDOMEN: Soft, nontender. No organomegaly. EXTREMITIES: No edema. NEUROLOGIC: Awake, alert and follows simple commands. LABORATORY DATA: Shows hemoglobin 12.2, hematocrit 35.8, WBC 9.6, platelet is 175. ABG was done, which shows pH 7.3, pCO2 of 40, O2 177 that was on BiPAP with 12/7 with 40% oxygen. Sodium 136, potassium 4.5, chloride 97, bicarbonate 27, BUN 33, creatinine 0.7, glucose 149, calcium 8.2, magnesium 2.6, AST 171, ALT 73, alk phos is 64. Albumin is 3.4. Microbiology, blood culture has been negative. CT scan of the chest was done, which shows no pulmonary embolus, right lower lobe infiltrate. There is nondisplaced contiguous posterior lateral left healing ribs. IMPRESSION AND PLAN: Chronic obstructive lung disease, history of alcohol abuse, right lower lobe pneumonia, rib fracture. Agree with Dr. Banks with the present management. Continue antibiotics, IV and inhaled bronchodilator, IV fluid. Alcohol withdrawal precaution. Continue nebulizer treatment. Add thiamine 200 mg twice a day outpatient, will benefit from full PFT and also attended a sleep study upon discharge. Thank you and we will follow with you. Nancy Lr MD
[2018-03-29] MEDS: cefTRIAXone 1 gm 1 GM/100 ML BAG IVPB SCH (09:47)
[2018-03-29] MEDS: Azithromycin 500MG/NS 250ml 500 MG/250 ML BAG IVPB SCH (11:07)
[2018-03-29 12:44] LABS: FOLATE 9.3 ng/mL
[2018-03-29] MEDS: MethylPREDNISolone 40 mg Vial IVP SCH ×2 (13:54→22:06)
--- NOTE | 2018-03-29 15:54 | CP.PCM.PN ---
Subjective - Date & Time of Evaluation Date of Evaluation: 03/29/18 Time of Evaluation: 14:30 - Subjective Subjective: Infectious Disease Follow Up: March 29, 2018 63 yo male with COPD and EtOH abuse history presenting with several days of SOB. Imaging studies suggesting RLL pneumonia and possible cystitis. Patient did have a fall landing on his right side specifically ribcage three days prior to hospitalization. Initial leukocytosis of 15.9 on admission. Patient stating that he feels better and feels like he can breathe easier today. Still with tremors to extremities. Patient has no new complaints. Objective - Vital Signs/Intake and Output Vital Signs (last 24 hours): Temp Pulse Resp BP Pulse Ox 97.4 F L 94 H 20 128/85 99 03/29/18 06:00 03/29/18 06:00 03/29/18 06:00 03/29/18 06:00 03/29/18 06:00 Intake and Output: 03/29/18 03/29/18 06:59 18:59 Intake Total 660 Output Total 700 Balance -40 - Medications Medications: Current Medications Albuterol/Ipratropium (Duoneb 3 Mg/0.5 Mg (3 Ml) Ud) 3 ml IH Q15M [facility] Last Admin: 03/27/18 16:39 Dose: 3 ml Albuterol/Ipratropium (Duoneb 3 Mg/0.5 Mg (3 Ml) Ud) 3 ml IH [id number] [facility] Last Admin: 03/29/18 11:46 Dose: 3 ml Azithromycin (Zithromax) 500 mg PO DAILY [facility] Folic Acid (Folic Acid) 1 mg PO DAILY [facility] Last Admin: 03/29/18 09:48 Dose: 1 mg Heparin Sodium (Porcine) (Heparin) 5,000 units SC Q8 [facility] PRN Reason: Protocol Last Admin: 03/29/18 13:55 Dose: 5,000 units Ceftriaxone Sodium (Rocephin 1 Gram Ivpb) 1 gm in 100 mls @ 100 mls/hr IVPB DAILY [facility] PRN Reason: Protocol Last Admin: 03/29/18 09:47 Dose: 100 mls/hr Lorazepam (Ativan) 2 mg IVP Q2H PRN; Protocol PRN Reason: Agitation Last Admin: 03/29/18 11:39 Dose: 2 mg Methylprednisolone (Solu-Medrol) 40 mg IVP Q8H [facility] Last Admin: 03/29/18 13:54 Dose: 40 mg Multivitamins/Minerals (Therapeutic-M Tab) 1 tab PO 0800 [facility] Last Admin: 03/29/18 08:08 Dose: Not Given Nicotine (Nicoderm Cq) 1 patch TD DAILY [facility] Last Admin: 03/29/18 09:48 Dose: 1 patch Pantoprazole Sodium (Protonix Ec Tab) 40 mg PO ACB [facility] Last Admin: 03/29/18 08:08 Dose: Not Given Thiamine HCl (Vitamin B1 Tab) 200 mg PO DAILY [facility] Last Admin: 03/29/18 09:48 Dose: 200 mg Vitamin B Complex/Vit C/Folic Acid (Nephro-Donnie) 1 tab PO 0800 [facility] Last Admin: 03/29/18 08:08 Dose: Not Given - Labs Labs: 03/29/18 06:00 03/29/18 06:00 - Constitutional Appears: Non-toxic, No Acute Distress, Chronically Ill - Head Exam Head Exam: ATRAUMATIC, NORMOCEPHALIC - Eye Exam Eye Exam: EOMI, PERRL Pupil Exam: NORMAL ACCOMODATION, PERRL - ENT Exam ENT Exam: Mucous Membranes Moist, Normal External Ear Exam, TM's Normal Bilaterally - Neck Exam Neck Exam: Full ROM, Normal Inspection - Respiratory Exam Respiratory Exam: Decreased Breath Sounds, Wheezes. absent: Rales, Rhonchi - Cardiovascular Exam Cardiovascular Exam: Tachycardia, RRR, +S1, +S2 - GI/Abdominal Exam GI & Abdominal Exam: Soft, Normal Bowel Sounds. absent: Distended, Tenderness - Extremities Exam Extremities Exam: Full ROM Additional comments: tremors. - Neurological Exam Neurological Exam: Alert, Awake, CN II-XII Intact, Oriented x3 - Psychiatric Exam Psychiatric exam: Normal Affect, Normal Mood - Skin Skin Exam: Intact, Warm Assessment and Plan - Assessment and Plan (Free Text) Assessment: 63 yo male with 3 day history of SOB with PMHx of COPD and EtOH abuse. The patient with findings of RLL pneumonia on imaging studies, possible cystitis, and leukocytosis of 15.9 on admission. Started on Rocephin and Azithromycin for antibiotic care. Patient was in active ETOH withdrawal on admission. Treatment for EtOH withdrawal started on admission. Placed on BiPAP as well. Was in MICU for care initially. Continue Rocpehin and Azithromycin for care. Patient appears to be improving. Thank you for allowing me to participate in the care of the patient, we will follow with you.
--- NOTE | 2018-03-29 18:05 | PN ---
DATE: 03/29/2018 PULMONARY PROGRESS NOTE REFERRING PHYSICIAN: Susanne Banks MD SUBJECTIVE: The patient is lying in the bed, head at 45 degrees. Night was unremarkable, tolerated CPAP well, has a small nasal bridge irritation. Still has a cough, no sputum production. No nausea. No vomiting. No diarrhea. No leg pain. No leg swelling. OBJECTIVE: GENERAL: In no acute distress. VITAL SIGNS: Temperature is 99, heart rate is 96, respiratory rate is 18, blood pressure 104/66, pulse ox 99% on nasal cannula. HEENT: Moist mucous membrane. Crowded airway. Mallampati score is 4. NECK: Supple. No JVD. LUNGS: Have scattered rhonchi. HEART: S1 and S2. ABDOMEN: Soft, nontender, no organomegaly. EXTREMITIES: There is no edema. NEUROLOGIC: Awake, alert, follows simple command. MEDICATIONS: He is on Ativan 2 mg every 2 hours p.r.n. for agitation, albuterol/Atrovent nebulizer every 4 hours [id number], folic acid 1 mg daily, heparin 5000 units subcu every 8 hours, vitamin B complex daily, Nicoderm patch daily, Protonix 40 mg daily, Rocephin 1 g daily, Solu-Medrol 40 mg every 8 hours, multivitamins daily, vitamin B1 200 mg daily, Zithromax 500 mg daily. LABORATORY DATA: Shows hemoglobin 11.3, hematocrit 33.9, WBC 10.3, platelet is 229. Sodium 138, potassium 4.1, chloride 101, bicarbonate 30, BUN 21, creatinine 0.6, glucose 211, calcium is 8.5, AST 135, ALT 70, alk phos is 78, albumin 3.1. TSH of 0.47. Microbiology: Blood culture, there is no growth. Had echocardiogram done, report is pending. IMPRESSION AND PLAN: Chronic obstructive lung disease, history of alcohol abuse, right lower lobe pneumonia, rib fracture. Pulmonary point of view, doing okay. Continue IV and inhaled bronchodilator. Continue antibiotics. Continue p.r.n. Ativan, gastric prophylaxis, deep venous thrombosis prophylaxis, fall precaution. Follow up labs in the morning. Thank you and we will follow with you. Nancy Lr MD [facility] # [id number]
[2018-03-30] MEDS: Albuterol-Ipratrop 3 mg / 0.5 (3 ml) UD IH SCH ×4 (03:50→17:28)
--- NOTE | 2018-03-30 04:50 | PN ---
DATE: 03/29/2018 SUBJECTIVE: The patient is seen and examined in the bedside. Looking comfortable. Having DuoNeb treatment. Night was uneventful, unremarkable. No change of the status. Tremors are better. Has mild nasal skin tear on the bridge of the nose. No coughing. No sputum production. No hematuria or hematochezia. No headache. No dizziness. PHYSICAL EXAMINATION: VITAL SIGNS: Temperature 99, heart rate 96, respiratory rate 18, blood pressure 110/60. HEENT: Head normocephalic, atraumatic. Eyes, PERRLA. Extraocular muscles intact. Conjunctivae clear. Nose patent. Bridge of the nose has irritation. Mucous membrane moist. NECK: Supple. No carotid bruit. No JVD or thyromegaly. CHEST: Bilaterally symmetrical. HEART: S1 and S2 positive. LUNGS: Clear to auscultation. ABDOMEN: Soft. Bowel sounds present. No organomegaly. EXTREMITIES: No edema. No cyanosis. NEUROLOGIC: The patient is awake and alert. Moving all four extremities. No focal deficit. MEDICATIONS: Ativan, albuterol, folic acid, heparin, vitamin B complex, Nicoderm patch, Protonix, Rocephin, Solu-Medrol, multivitamins, vitamin B1 and Zithromax. LABORATORY DATA: Hemoglobin 11.3, hematocrit 33.9, white blood cells 10.3, platelets 229. Sodium 138, potassium 4.1, BUN 21, creatinine 0.6. AST 135, ALT 70. TSH is 0.47. ASSESSMENT AND PLAN: Mr. Kody Schultz is a 63-year-old male with chronic obstructive lung disease, history of alcohol abuse, right lower lobe pneumonia, rib fracture. Pulmonary point of view, patient is doing better. Continue antibiotics. Continue p.r.n. Ativan. Follow up labs. Fall precautions. Seizure precautions. Reviewed Dr. Lr's notes and Dr. Moreno's notes. Gastrointestinal and deep venous thrombosis prophylaxis. Repeat labs. We will follow up. Susanne Banks MD [facility]
[2018-03-30 06:23] LABS: HEMOGLOBIN 11.5 g/dL (14.0-18.0); MEAN CELL VOLUME 97.5 fl (80.0-105.0); MEAN CORPUSCULAR HEMOGLOBIN 32.6 pg (25.0-35.0); MEAN CORPUSCULAR HGB CONC 33.4 g/dl (31.0-37.0); MEAN PLATELET VOLUME 9.8 fl (7.0-11.0); RBC 3.53 10^6/uL (3.5-6.1); RED CELL DISTRIBUTION WIDTH 13.2 % (11.5-14.5); WHITE BLOOD COUNT 6.8 10^3/ul (4.5-11.0)
[2018-03-30 07:07] LABS: ALB/GLOB RATIO 1.2 (1.1-1.8); ALBUMIN 3.2 g/dL (3.0-4.8); ALT/SGPT 78 U/L (7-56); AST/SGOT 118 U/L (17-59); BLOOD UREA NITROGEN 16 mg/dL (7-21); CALCIUM 8.9 mg/dL (8.4-10.5); GFR AFRICAN-AMERICAN > 60; GFR NON-AFRICAN AMERICAN > 60
[2018-03-30 08:36] VITALS: RESP 20; TEMP 98.2
[2018-03-30] MEDS: Pantoprazole 40 mg EC Tab PO SCH (08:38)
[2018-03-30] MEDS: Multivitamin With Minerals Tab PO SCH (08:38)
[2018-03-30] MEDS: Multivitamin Vitamin B Complex (Nephro-Vite) Tab PO SCH (08:38)
[2018-03-30] MEDS: cefTRIAXone 1 gm 1 GM/100 ML BAG IVPB SCH (09:35)
--- NOTE | 2018-03-30 09:44 | CARD ---
APPROVED REPORT EXAM: Two-dimensional and M-mode echocardiogram with Doppler and color Doppler. Other Information Quality : AverageRhythm : INDICATION COPD 2D DIMENSIONS Left Atrium (2D)3.3 (1.6-4.0cm)IVSd1.0 (0.7-1.1cm) LVDd4.7 (3.9-5.9cm)PWd1.1 (0.7-1.1cm) LVDs3.5 (2.5-4.0cm)FS (%) 26.0 % LVEF (%)51.0 (>50%) M-Mode DIMENSIONS Aortic Root2.80 (2.2-3.7cm)Aortic Cusp Exc.1.20 (1.5-2.0cm) Aortic Valve AoV Peak [id number]/s Mitral Valve E/A ratio0.0 TDI E/Lateral E'0.0E/Medial E'0.0 Tricuspid Valve TR Peak [id number] Peak Gr.13mmHg [id number] LEFT VENTRICLE The left ventricle is normal size. There is normal left ventricular wall thickness. The left ventricular function is normal. The left ventricular ejection fraction is within the normal range. There is normal LV segmental wall motion. RIGHT VENTRICLE The right ventricle is normal size. ATRIA The left atrium size is normal. The right atrium size is normal. The atrial septum is aneurysmal. AORTIC VALVE The aortic valve is mildly calcified. MITRAL VALVE The mitral valve is mildly thickened but opens well. TRICUSPID VALVE The tricuspid valve is normal in structure. There is trace tricuspid regurgitation. PULMONIC VALVE The pulmonic valve is not well visualized. GREAT VESSELS The aortic root is normal in size. PERICARDIAL EFFUSION There is no pericardial effusion. <Conclusion> The left ventricle is normal size. There is normal left ventricular wall thickness. The left ventricular function is normal. The atrial septum is aneurysmal.
--- NOTE | 2018-03-30 14:54 | CON ---
DATE: HISTORY OF PRESENT ILLNESS: In short, the patient is 63-year-old male with reported history of anxiety, also alcohol abuse and COPD. The patient was brought in for evaluation of shortness of breath. The patient reported that he fell and hurt his ribcage. Psych consult was called because the patient has history of anxiety. The patient was seen and examined. The patient presented to be alert and oriented. Pleasant, cooperative. Patient reported that he suffers from anxiety and for what, he is on disability. The patient reported that his psychiatrist is Dr. Cale Rose and he is prescribing him Klonopin as well as Xanax. The patient reported that he is compliant with medication. The patient denied being depressed, but upset over his medical condition. The patient denied hearing voices, denied seeing things. Denied paranoid ideation. The patient does not present to be psychotic. The patient denied history of being admitted to the psychiatric inpatient unit. The patient tried to hurt himself into 1006 and it was only one attempt. The patient denied any intent or plan to kill himself at present moment. The patient reported that he lives alone, but his close friend lives next to him. The patient reported that he has future oriented plans. He wants to feel better. He wants to be discharged back home. PHYSICAL EXAMINATION: VITAL SIGNS: Stable. Temperature 98.2, pulse 91, blood pressure 118/77, respiration 26, and saturation is 91. MEDICATIONS: Reviewed. The patient is on DuoNeb, Zithromax, Rocephin, folic acid, heparin, Ativan 2 mg IV push every 2 hours as needed for agitation and Solu-Medrol, multivitamins, NicoDerm, Protonix, vitamin B1, tramadol and B12. DATA: Labs reviewed. Hematology reviewed. WBC cells were elevated at 15.9, but it was on 03/27; hemoglobin and hematocrit are within normal limits. No leukocytosis at the present moment. Chemistry reviewed. AST and ALT elevated at 118 and 71 respectively. Toxicology, alcohol less than 10. Serology negative. MENTAL STATUS EXAM: The patient presented to be alert and oriented, pleasant, cooperative. The patient had intermittent eye contact. Speech was normal rate, tone, quality and quantity. Mood described I am not depressed, but upset. Affect was constricted. Thought process was coherent and goal directed. Thought content, the patient denied visual, auditory or tactile hallucinations. Denied paranoid ideation. The patient denied thoughts of harming himself or others. Denied intent or plan. Insight and judgment seems to be limited into his alcohol addiction, but good in mental illness. Impulses are well controlled. IMPRESSION: As per the patient, the patient has history of anxiety. The patient reported that he is on two anxiolytic medications, Xanax as well as Klonopin. PLAN: Continue current management. Continue current medications, Klonopin and Xanax, not recommended at present moment. The patient might benefit from Ativan 2 mg three times a day scheduled with a plan to taper that down. The patient was advised to take medication as prescribed. The patient has followup appointment with Dr. Cale Rose next week. The patient is not psychotic. The patient is not depressed. The patient not in any imminent danger to self or others. This writer editor will sign off. Please re-consult as needed. Thank you very much for letting me participate in care of your patient. Michelle Villarreal MD
[2018-03-30] MEDS: MethylPREDNISolone 40 mg Vial IVP SCH (15:54)
--- NOTE | 2018-03-30 16:38 | CP.PCM.PN ---
Subjective - Date & Time of Evaluation Date of Evaluation: 03/30/18 Time of Evaluation: 15:00 - Subjective Subjective: Infectious Disease Follow Up: March 30, 2018 63 yo male with COPD and EtOH abuse history presenting with several days of SOB. Imaging studies suggesting RLL pneumonia and possible cystitis. Patient did have a fall landing on his right side specifically ribcage three days prior to hospitalization. Initial leukocytosis of 15.9 on admission. Patient stating that he feels better and feels like he can breathe easier today. Still with tremors to extremities. Patient has no new complaints. Objective - Vital Signs/Intake and Output Vital Signs (last 24 hours): Temp Pulse Resp BP Pulse Ox 98.2 F 91 H 20 118/77 91 L 03/30/18 08:36 03/30/18 08:36 03/30/18 08:36 03/30/18 08:36 03/30/18 08:36 Intake and Output: 03/30/18 03/30/18 06:59 18:59 Intake Total 420 Output Total 400 Balance 20 - Medications Medications: Current Medications Albuterol/Ipratropium (Duoneb 3 Mg/0.5 Mg (3 Ml) Ud) [address] [facility] Last Admin: 03/27/18 16:39 Dose: 3 ml Albuterol/Ipratropium (Duoneb 3 Mg/0.5 Mg (3 Ml) Ud) [id number] [facility] Last Admin: 03/30/18 11:18 Dose: 3 ml Azithromycin (Zithromax) [address] [facility] Last Admin: 03/30/18 09:37 Dose: 500 mg Folic Acid (Folic Acid) [address] [facility] Last Admin: 03/30/18 09:38 Dose: 1 mg Heparin Sodium (Porcine) (Heparin) 5,000 units SC Q8 [facility] PRN Reason: Protocol Last Admin: 03/30/18 13:12 Dose: 5,000 units Ceftriaxone Sodium (Rocephin 1 Gram Ivpb) 1 gm in 100 mls @ 100 mls/hr IVPB DAILY [facility] PRN Reason: Protocol Last Admin: 03/30/18 09:35 Dose: 100 mls/hr Lorazepam (Ativan) 2 mg IVP Q2H PRN; Protocol PRN Reason: Agitation Last Admin: 03/30/18 02:41 Dose: 2 mg Lorazepam (Ativan) [address] [facility] PRN Reason: Protocol Methylprednisolone (Solu-Medrol) [address] [facility] Last Admin: 03/30/18 15:54 Dose: 40 mg Multivitamins/Minerals (Therapeutic-M Tab) [address] [facility] Last Admin: 03/30/18 08:38 Dose: 1 tab Nicotine (Nicoderm Cq) [address] [facility] Last Admin: 03/30/18 09:37 Dose: 1 patch Pantoprazole Sodium (Protonix Ec Tab) [address] [facility] Last Admin: 03/30/18 08:38 Dose: 40 mg Thiamine HCl (Vitamin B1 Tab) [address] [facility] Last Admin: 03/30/18 09:38 Dose: 200 mg Tramadol HCl (Ultram) [address] [facility] Last Admin: 03/30/18 13:11 Dose: 50 mg Vitamin B Complex/Vit C/Folic Acid (Nephro-Donnie) [address] [facility] Last Admin: 03/30/18 08:38 Dose: 1 tab - Labs Labs: 03/30/18 06:00 03/30/18 06:00 - Constitutional Appears: Non-toxic, No Acute Distress, Chronically Ill - Head Exam Head Exam: ATRAUMATIC, NORMOCEPHALIC - Eye Exam Eye Exam: EOMI, PERRL Pupil Exam: NORMAL ACCOMODATION, PERRL - ENT Exam ENT Exam: Mucous Membranes Moist, Normal External Ear Exam, TM's Normal Bilaterally - Neck Exam Neck Exam: Full ROM, Normal Inspection - Respiratory Exam Respiratory Exam: Decreased Breath Sounds, Wheezes, NORMAL BREATHING PATTERN. absent: Rales, Rhonchi - Cardiovascular Exam Cardiovascular Exam: Tachycardia, RRR, +S1, +S2 - GI/Abdominal Exam GI & Abdominal Exam: Soft, Tenderness, Normal Bowel Sounds. absent: Distended - Extremities Exam Extremities Exam: Full ROM Additional comments: tremors. - Neurological Exam Neurological Exam: Alert, Awake, CN II-XII Intact, Oriented x3 - Psychiatric Exam Psychiatric exam: Normal Affect, Normal Mood - Skin Skin Exam: Intact, Normal Color Assessment and Plan - Assessment and Plan (Free Text) Assessment: 63 yo male with 3 day history of SOB with PMHx of COPD and EtOH abuse. The patient with findings of RLL pneumonia on imaging studies, possible cystitis, and leukocytosis of 15.9 on admission. Started on Rocephin and Azithromycin for antibiotic care. Patient was in active ETOH withdrawal on admission. Treatment for EtOH withdrawal started on admission. Placed on BiPAP as well. Was in MICU for care initially. Continue Rocpehin and Azithromycin for care. Patient appears to be improving. Leukocytosis has normalized to 6.8. For 10 days of Rocephin IV treatment. Thank you for allowing me to participate in the care of the patient, we will follow with you.
[2018-03-30 17:26] VITALS: BP 133/92; PULSE 95; O2SAT 98
--- NOTE | 2018-03-30 17:27 | PN ---
DATE: 03/30/2018 PULMONARY PROGRESS NOTE REFERRING PHYSICIAN: Dr. Banks. SUBJECTIVE: He is lying in the bed at 45 degrees. Night was unremarkable. On an effusing BiPAP, still have a cough; left repair cage pain. No nausea, no vomiting, diarrhea, leg swelling. OBJECTIVE: GENERAL: Not in acute distress. VITAL SIGNS: Temperature is 98, heart rate 91, respiratory rate is 20, blood pressure 118/77, pulse ox 91% on nasal cannula. HEENT: Moist mucous membrane. Crowded airway. Mallampati score is 4. NECK: Supple. No JVD. LUNGS: Have scattered rhonchi and wheezing. HEART: S1, S2. ABDOMEN; Soft, nontender, no organomegaly. EXTREMITIES: No edema. NEUROLOGIC: Awake and alert, follows simple command. MEDICATIONS: Ativan 2 mg every 2 hours p.r.n., DuoNeb every 50 minutes p.r.n. and also every 4 hours [id number], folic acid 1 mg daily, heparin 520 subcu every 8 hours, Nephro vitamins daily, NicoDerm patch daily, Protonix 40 mg a.c.b., Rocephin 1 g IV daily, Solu-Medrol 40 mg every 8 hours, multivitamins daily, Ultram 50 mg three times a day, vitamin B1 200 mg daily, Zithromax 500 mg daily. LABORATORY DATA: Shows hemoglobin 11.5, hematocrit 34.4, WBC 6.8, platelets is 259. Sodium 135, potassium 4.7, chloride 96, bicarbonate 33, BUN 16, creatinine 0.6, glucose 153, calcium 8.9, AST 118, ALT 78, alk phos is 65. Albumin is 3.2. Microbiology, blood culture, nares culture is unremarkable. Echocardiogram done shows left ventricle is normal, left ventricular wall thickness is normal, left ventricular function is normal. Right ventricular systolic pressure is 23. IMPRESSION AND PLAN: Chronic obstructive lung disease, history of alcohol abuse, right lower lobe pneumonia, rib fracture, alcohol withdrawals, activities of daily living dysfunction. Case discussed with floor nurse practitioner. I believe the patient will benefit from continued pneumonia and COPD treatment and also start therapy. Gastric prophylaxis, DVT prophylaxis. Continue Ativan, pain management. Fall precaution. We will follow with you. Nancy Lr MD
== END 2018-03-30 18:21 | DRG 190 ==
LOC: ED 14:07 → ERH 17:25 → CCU 19:41 → 3RSO 03-28 12:12
PROVIDERS: ADMIT Internal Medicine; ATTEND Internal Medicine
PROC: 5A09457 Assistance with Respiratory Ventilation, 24-96 Consecutive Hours, Continuous Positive Airway Pressure (ICD-10-PCS; principal; 2018-03-27)
PROC: 3E0F7GC Introduction of Other Therapeutic Substance into Respiratory Tract, Via Natural or Artificial Opening (ICD-10-PCS; 2018-03-27)
DX: J44.1 Chronic obstructive pulmonary disease with (acute) exacerbation (principal); J18.9 Pneumonia, unspecified organism; S22.42XA Multiple fractures of ribs, left side, initial encounter for closed fracture; F10.231 Alcohol dependence with withdrawal delirium; E87.1 Hypo-osmolality and hyponatremia; R64 Cachexia; N30.90 Cystitis, unspecified without hematuria; E86.0 Dehydration; D69.6 Thrombocytopenia, unspecified; J44.0 Chronic obstructive pulmonary disease with (acute) lower respiratory infection; F41.9 Anxiety disorder, unspecified; D64.9 Anemia, unspecified; F17.210 Nicotine dependence, cigarettes, uncomplicated; Z68.21 Body mass index [BMI] 21.0-21.9, adult; W19.XXXA Unspecified fall, initial encounter; Y90.0 Blood alcohol level of less than 20 mg/100 ml; Y92.9 Unspecified place or not applicable

== ENCOUNTER 2018-03-30 18:21 | Inpatient (IN) | payer OTHER ==
[2018-03-30 19:29] VITALS: BMI 21.9
[2018-03-30] MEDS ORDERED: MethylPREDNISolone 40 mg Vial IVP SCH (19:45)
[2018-03-30] MEDS: Albuterol-Ipratrop 3 mg / 0.5 (3 ml) UD IH SCH ×2 (19:57→23:22)
[2018-03-31] MEDS ORDERED: Pneumococcal 23-Valent Vaccine IM ONE (01:17)
[2018-03-31] MEDS: Albuterol-Ipratrop 3 mg / 0.5 (3 ml) UD IH SCH ×5 (04:25→19:20)
[2018-03-31] MEDS: Pantoprazole 40 mg EC Tab PO SCH (05:37)
[2018-03-31] MEDS: MethylPREDNISolone 40 mg Vial IVP SCH ×3 (05:38→21:57)
[2018-03-31] MEDS: Multivitamin Vitamin B Complex (Nephro-Vite) Tab PO SCH (08:06)
[2018-03-31] MEDS: Multivitamin With Minerals Tab PO SCH (08:06)
--- NOTE | 2018-03-31 14:12 | IP.NPCORE ---
Pneumonia Progress Notes - Oxygenation Assessment (REQUIRED) O2 Saturation: 100 Oxygen Delivery Method: Nasal Cannula - Blood Cultures (REQUIRED) Culture drawn: Yes - Initial Antibiotic Initial Antibiotic given within Four Hours:: Yes - Appropriate Antibiotic Appropriate Antibiotic within 24 hours of Admission:: Yes - Pneumonia Vaccine Pneumonia Vaccine: Yes Date:: 03/31/18 Time:: 04:30 - Smoking Cessation Smoking Cessation counseling provided:: Yes Ex-Smoker (has not smoked in the last 12 months): Yes Current Smoker - smoking cessation education provided: No
--- NOTE | 2018-03-31 15:58 | CP.PCM.CON ---
History of Present Illness - History of Present Illness History of Present Illness: Infectious Disease Follow Up: March 31, 2018 63 yo male with COPD and EtOH abuse history presenting with several days of SOB. Imaging studies suggesting RLL pneumonia and possible cystitis. Patient did have a fall landing on his right side specifically ribcage three days prior to hospitalization. Initial leukocytosis of 15.9 on admission. Leukocytosis has normalized to 6.8. Patient stating that he feels better and feels like he can breathe easier today. Still with tremors to extremities. Patient has no new complaints. PMHx: COPD, EtOH abuse PSHx: none given Allergies: NKDA Social Hx: tobacco 1ppd Heavy EtOH use no illicit drug use Active Medications Albuterol/Ipratropium (Duoneb 3 Mg/0.5 Mg (3 Ml) Ud) 3 ml IH [id number] MARISA PRN Reason: Protocol Last Admin: 03/31/18 10:58 Dose: 3 ml Azithromycin (Zithromax) 500 mg PO DAILY MARISA PRN Reason: Protocol Last Admin: 03/31/18 10:02 Dose: 500 mg Folic Acid (Folic Acid) 1 mg PO DAILY MARISA PRN Reason: Protocol Last Admin: 03/31/18 10:00 Dose: 1 mg Heparin Sodium (Porcine) (Heparin) 5,000 units SC Q8 MARISA PRN Reason: Protocol Last Admin: 03/31/18 14:29 Dose: 5,000 units Lorazepam (Ativan) 2 mg IVP Q2H PRN; Protocol PRN Reason: Agitation Lorazepam (Ativan) 2 mg PO 0600,1400,2200 MARISA PRN Reason: Protocol Last Admin: 03/31/18 14:28 Dose: 2 mg Methylprednisolone (Solu-Medrol) 40 mg IVP 0600,1400,2200 MARISA PRN Reason: Protocol Last Admin: 03/31/18 14:30 Dose: 40 mg Multivitamins/Minerals (Therapeutic-M Tab) 1 tab PO 0800 MARISA PRN Reason: Protocol Last Admin: 03/31/18 08:06 Dose: 1 tab Nicotine (Nicoderm Cq) 1 patch TD DAILY MARISA PRN Reason: Protocol Last Admin: 03/31/18 10:01 Dose: 1 patch Pantoprazole Sodium (Protonix Ec Tab) 40 mg PO 0630 MARISA PRN Reason: Protocol Last Admin: 03/31/18 05:37 Dose: 40 mg Thiamine HCl (Vitamin B1 Tab) 200 mg PO DAILY MARISA PRN Reason: Protocol Last Admin: 03/31/18 10:01 Dose: 200 mg Tramadol HCl (Ultram) 50 mg PO 0600,1400,2200 MARISA PRN Reason: Protocol Last Admin: 03/31/18 14:31 Dose: Not Given Vitamin B Complex/Vit C/Folic Acid (Nephro-Donnie) 1 tab PO 0800 MARISA PRN Reason: Protocol Last Admin: 03/31/18 08:06 Dose: 1 tab Family Hx: none given ROS: no fevers, chills, nausea, vomiting, diarrhea, headaches, dizziness, chest pain , abdominal pain, melena, hematuria, hematemesis, hematochezia, depression, anxiety. Past Patient History - Past Social History Smoking Status: Heavy Smoker > 10 Cigarettes Daily - CARDIAC Hx Cardiac Disorders: Yes (tachycardia) - PULMONARY Hx Chronic Obstructive Pulmonary Disease (COPD): Yes - NEUROLOGICAL Hx Neurological Disorder: No - HEENT Hx HEENT Problems: No - RENAL Hx Chronic Kidney Disease: No - ENDOCRINE/METABOLIC Hx Endocrine Disorders: No - HEMATOLOGICAL/ONCOLOGICAL Hx Blood Disorders: No - INTEGUMENTARY Hx Dermatological Problems: Yes Other/Comment: large bruise inner right thigh, multiple bruises to knees and lower legs, bruise left flank, small abrasion rle 0.5cm round bed light red, bilateral feet skaley dry skin with long thick curled toenails, skin discolorations both arms, color slightly flushed - MUSCULOSKELETAL/RHEUMATOLOGICAL Hx Falls: Yes - GASTROINTESTINAL Hx Gastrointestinal Disorders: No - GENITOURINARY/GYNECOLOGICAL Hx Genitourinary Disorders: No Hx Reproductive Disorders: No - PSYCHIATRIC Hx Substance Use: (unknown) - SURGICAL HISTORY Hx Surgeries: (unknown) - ANESTHESIA Hx Anesthesia: No Hx Anesthesia Reactions: No Hx Malignant Hyperthermia: No Meds Allergies/Adverse Reactions: Allergies Allergy/AdvReac Type Severity Reaction Status Date / Time No Known Allergies Allergy Verified 03/30/18 19:29 - Medications Medications: Current Medications Albuterol/Ipratropium (Duoneb 3 Mg/0.5 Mg (3 Ml) Ud) 3 ml IH [id number] MARISA PRN Reason: Protocol Last Admin: 03/31/18 10:58 Dose: 3 ml Azithromycin (Zithromax) 500 mg PO DAILY MARISA PRN Reason: Protocol Last Admin: 03/31/18 10:02 Dose: 500 mg Folic Acid (Folic Acid) 1 mg PO DAILY MARISA PRN Reason: Protocol Last Admin: 03/31/18 10:00 Dose: 1 mg Heparin Sodium (Porcine) (Heparin) 5,000 units SC Q8 MARISA PRN Reason: Protocol Last Admin: 03/31/18 14:29 Dose: 5,000 units Lorazepam (Ativan) 2 mg IVP Q2H PRN; Protocol PRN Reason: Agitation Lorazepam (Ativan) 2 mg PO 0600,1400,2200 MARISA PRN Reason: Protocol Last Admin: 03/31/18 14:28 Dose: 2 mg Methylprednisolone (Solu-Medrol) 40 mg IVP 0600,1400,2200 MARISA PRN Reason: Protocol Last Admin: 03/31/18 14:30 Dose: 40 mg Multivitamins/Minerals (Therapeutic-M Tab) 1 tab PO 0800 MARISA PRN Reason: Protocol Last Admin: 03/31/18 08:06 Dose: 1 tab Nicotine (Nicoderm Cq) 1 patch TD DAILY MARISA PRN Reason: Protocol Last Admin: 03/31/18 10:01 Dose: 1 patch Pantoprazole Sodium (Protonix Ec Tab) 40 mg PO 0630 MARISA PRN Reason: Protocol Last Admin: 03/31/18 05:37 Dose: 40 mg Thiamine HCl (Vitamin B1 Tab) 200 mg PO DAILY MARISA PRN Reason: Protocol Last Admin: 03/31/18 10:01 Dose: 200 mg Tramadol HCl (Ultram) 50 mg PO 0600,1400,2200 MARISA PRN Reason: Protocol Last Admin: 03/31/18 14:31 Dose: Not Given Vitamin B Complex/Vit C/Folic Acid (Nephro-Donnie) 1 tab PO 0800 MARISA PRN Reason: Protocol Last Admin: 03/31/18 08:06 Dose: 1 tab Physical Exam - Constitutional Appears: Non-toxic, No Acute Distress, Chronically Ill - Head Exam Head Exam: ATRAUMATIC, NORMOCEPHALIC - Eye Exam Eye Exam: EOMI, PERRL Pupil Exam: NORMAL ACCOMODATION, PERRL - ENT Exam ENT Exam: Mucous Membranes Moist, Normal External Ear Exam, TM's Normal Bilaterally - Respiratory Exam Respiratory Exam: Decreased Breath Sounds, Wheezes, NORMAL BREATHING PATTERN. absent: Rales, Rhonchi - Cardiovascular Exam Cardiovascular Exam: Tachycardia, RRR, +S1, +S2 - GI/Abdominal Exam GI & Abdominal Exam: Normal Bowel Sounds, Soft. absent: Distended, Tenderness - Extremities Exam Extremities exam: Positive for: full ROM Additional comments: tremors. - Neurological Exam Neurological exam: Alert, CN II-XII Intact, Oriented x3 - Psychiatric Exam Psychiatric exam: Normal Affect, Normal Mood - Skin Skin Exam: Intact, Normal Color Results - Vital Signs Recent Vital Signs: Last Vital Signs Temp 97.2 F L 03/31/18 06:00 Pulse 76 03/31/18 06:00 Resp 18 03/31/18 06:00 BP 132/84 03/31/18 06:00 Pulse Ox 100 03/31/18 14:12 Assessment & Plan - Assessment and Plan (Free Text) Assessment: 63 yo male with 3 day history of SOB with PMHx of COPD and EtOH abuse. The patient with findings of RLL pneumonia on imaging studies, possible cystitis, and leukocytosis of 15.9 on admission. Started on Rocephin and Azithromycin for antibiotic care. Patient was in active ETOH withdrawal on admission. Treatment for EtOH withdrawal started on admission. Placed on BiPAP as well. Was in MICU for care initially. Continue Rocpehin and Azithromycin for care. Patient appears to be improving. Leukocytosis has normalized to 6.8. To complete total 10 days of Rocephin IV treatment. Thank you for allowing me to participate in the care of the patient, we will follow with you.
[2018-03-31] MEDS: Naproxen 550 mg Tab PO SCH (17:44)
--- NOTE | 2018-03-31 22:33 | CON ---
DATE: 03/31/2018 PULMONARY CONSULTATION REFERRING PHYSICIAN: Susanne Banks MD. REASON FOR CONSULTATION: Chronic obstructive lung disease, cough, shortness of breath, history of rib fracture. HISTORY OF PRESENT ILLNESS: This is a 63-year-old male known to me from acute side of the hospital where he was admitted with respiratory failure requiring noninvasive ventilation, also has a history of alcohol abuse, chronic obstructive lung disease, recent fall with left-sided rib fracture, presently on antibiotics and inhaled bronchodilator, admitted to TICU for continued care. Still has a cough, pleuritic pain. Some tremors. No nausea. No dysuria. No leg pain, no leg swelling. PAST MEDICAL HISTORY: Chronic obstructive lung disease, alcohol abuse, multiple falls. ALLERGIES: NONE KNOWN. SOCIAL HISTORY: Positive history of smoking. Admit to have excessive alcohol use. FAMILY HISTORY: No significant cardiopulmonary disease reported. MEDICATIONS: He is on lorazepam 2 mg IV every 2 hours p.r.n. and also on lorazepam 2 mg p.o. three times a day [id number], DuoNeb every 4 hours, folic acid 1 mg daily, heparin 5000 subcu every 8 hours, Nephro-vitamins daily, Nicoderm patch daily, Protonix 40 mg daily, Solu-Medrol 40 mg three times a day, multivitamins daily, tramadol 50 mg three times a day, vitamin B1 200 mg daily and Zithromax 500 mg daily. REVIEW OF SYSTEMS: No headache. No rhinitis. Has a cough, shortness of breath, left-sided muscular rib pain. No nausea. No vomiting. No diarrhea. No leg pain or leg swelling. Still has some tremors. PHYSICAL EXAMINATION: GENERAL: Lying in the bed, in no acute distress. VITAL SIGNS: Temp is 98, heart rate is 76, respiratory rate is 20, blood pressure 132/84, pulse ox 100% on nasal cannula. HEENT: Moist mucous membrane. Crowded airway. Mallampati score is IV. NECK: Supple. No JVD. LUNGS: Have scattered rhonchi and wheezing. HEART: S1 and S2. ABDOMEN: Soft, nontender. No organomegaly. EXTREMITIES: There is no edema. NEUROLOGIC: Awake, alert. Follows simple command. Has some tremors though. LABORATORY DATA: Shows hemoglobin 11.5, hematocrit 34.4, WBC 6.8, platelet count is 259. Microbiology: Blood culture and urine culture, there is no growth. IMPRESSION AND PLAN: Chronic obstructive lung disease, history of alcohol abuse with some withdrawal symptoms, right lower lobe pneumonia, rib cage fracture, activities of daily living dysfunction. Agree with the present management. Continue IV and inhaled bronchodilator. Continue antibiotics. Change frequency of inhaled bronchodilators. We will give lidocaine patch at affected area. May add some Lyrica. For withdrawal, continue p.r.n. Ativan. Gastric prophylaxis, deep vein thrombosis prophylaxis. Fall precaution. Continue continuous positive airway pressure while sleeping. Patient is urged to stop smoking and also urged to stop alcohol. Risk of drugs discussed, he expressed understanding, will continue work to stop it. Thank you and we will follow with you. Nancy Lr MD
[2018-04-01] MEDS: Albuterol-Ipratrop 3 mg / 0.5 (3 ml) UD IH SCH ×5 (00:16→15:23)
[2018-04-01] MEDS: Pantoprazole 40 mg EC Tab PO SCH (05:54)
[2018-04-01] MEDS: MethylPREDNISolone 40 mg Vial IVP SCH ×3 (05:55→21:34)
[2018-04-01] MEDS: Multivitamin With Minerals Tab PO SCH (08:11)
[2018-04-01] MEDS: Naproxen 550 mg Tab PO SCH ×2 (10:23→17:14)
[2018-04-01] MEDS: Multivitamin Vitamin B Complex (Nephro-Vite) Tab PO SCH (10:26)
[2018-04-01] MEDS: Lidocaine 5% Patch TD SCH (10:27)
--- NOTE | 2018-04-01 12:10 | HP ---
CHIEF COMPLAINT: Fall, chest pain after rib fracture, coughing, ethanol abuse. HISTORY OF PRESENT ILLNESS: Mr. Kody Schultz is a 63-year-old male was admitted in the unit with ethanol abuse, fracture of the ribs, shortness of breath requiring noninvasive ventilation. The patient has history of alcohol abuse, chronic obstructive lung disease, renal failure with left-sided rib fracture. Was put on antibiotics, inhaled bronchodilators. From the unit, he was transferred on the medical floor. After stabilizing, now transferred to TCU for continuity of care, physical therapy and for tapering dose of steroids and antibiotics. Still coughing, but less. Pleuritic pain still has on the left side, especially of the chest. Some tremors, improving. Getting tapering dose of Ativan and steroids. No fever. No chills. No nausea, vomiting, diarrhea. No hematuria or hematochezia. No swelling of the leg. PAST MEDICAL HISTORY: Chronic obstructive lung disease, alcohol abuse, multiple falls. ALLERGIES: THE PATIENT IS NOT ALLERGIC WITH ANY MEDICATIONS. SOCIAL HISTORY: Positive for smoking. Admitted to have excessive alcohol abuse. No drugs as per patient. FAMILY HISTORY: Father and mother, noncontributory. REVIEW OF SYSTEMS: The patient was seen and examined on the bedside in the TCU. Still coughing, but less. Has a little bit left-sided pleuritic pain with coughing. No fever. No chills. No nausea, vomiting, diarrhea. No hematuria or hematochezia. No swelling of the leg. No headache. No dizziness. PHYSICAL EXAMINATION: VITAL SIGNS: Temperature 98, heart rate 76, respiratory rate 20, blood pressure 132/84, pulse oximetry 100% on nasal cannula. HEENT: Head normocephalic, atraumatic. Eyes PERRLA. Extraocular muscles intact. Conjunctivae clear. Nose patent. NECK: Supple. No carotid bruit. No JVD or thyromegaly. CHEST: Bilaterally symmetrical. HEART: S1 and S2 positive. LUNGS: Clear to auscultation. ABDOMEN: Soft. Bowel sounds positive. No organomegaly. EXTREMITIES: No edema. No cyanosis. NEUROLOGICAL: The patient is awake and alert. Moving all 4 extremities. No focal deficits. LABORATORY DATA: Hemoglobin 11.5, hematocrit 34.4, white blood cells 6.8, platelets of 259. Blood cultures and urine cultures are negative for any growth. MEDICATIONS: Lorazepam was getting 2 mg. I tapered down to 1 mg, Folic acid, heparin, NicoDerm patch, Nephro-Donnie noted Protonix, Solu-Medrol, multivitamins, tramadol, vitamin B1, azithromycin. ASSESSMENT AND PLAN: Mr. Kody Schultz is a 63-year-old male with chronic obstructive lung disease, history of alcohol abuse with some withdrawal symptoms, right lower lobe pneumonia, history of rib fractures, especially on the left side. He is not able to do his activities of daily living. Getting inhaled and IV bronchodilators. Continue antibiotics. Give Lidoderm patch on the affected area. Dr. Lr added Lyrica. Continue on Ativan. Gastric and deep venous thrombosis prophylaxis. Fall precautions. Seizure precautions. Continue with positive airway pressure while sleeping. We will follow up. Susanne Banks MD MTDNeyda
[2018-04-01] MEDS: Acetylcysteine 20% Inhal Soln (4ml) IH SCH (20:12)
[2018-04-01] MEDS: Levalbuterol 1.25 MG/3 ML Inhal Soln UD IH SCH (20:12)
--- NOTE | 2018-04-01 21:39 | PN ---
DATE: 04/01/2018 PULMONARY PROGRESS NOTE REFERRING PHYSICIAN: Dr. Banks. SUBJECTIVE: The patient is lying in the bed, head at 45 degrees. Night was unremarkable, tolerated CPAP well. Seems better. Decreased tremor. Decrease d cough. No nausea. No vomiting. No diarrhea. No leg pain. No leg swelling. PHYSICAL EXAMINATION: GENERAL: In no acute distress. VITAL SIGNS: Temp is 98, heart rate is 90, respiratory rate is 20, blood pressure 129/87, pulse ox 95% on 2 L nasal cannula. HEENT: Moist mucous membrane. Crowded airway. Mallampati score is 4. NECK: Supple. No JVD. LUNGS: Have a better airflow with scattered rhonchi. HEART: S1 and S2. ABDOMEN: Soft, nontender. No organomegaly. EXTREMITIES: No edema. NEUROLOGIC: Awake, alert. Follows simple command. MEDICATIONS: He is on Naprosyn 550 mg twice a day, Ativan 2 mg three times a day, also 1 mg every 4 hours p.r.n., DuoNeb every 4 hours, folic acid 1 mg daily, heparin 5000 units subcu every 8 hours, Lidoderm patch at affected area, Lyrica 25 mg twice a day, vitamin B complex one tab daily, Nicoderm patch daily, Protonix mg daily, Solu-Medrol 40 mg three times a day, multivitamins daily, Ultram 50 mg three times a day, vitamin B1 200 mg daily, Zithromax 500 mg daily. LABORATORY DATA: Reviewed. No new lab is available since yesterday. IMPRESSION AND PLAN: Chronic obstructive lung disease, history of alcohol abuse, right lower lobe aspiration pneumonia, ribcage fracture, activities of daily living dysfunction. Patient clinically feels better. Pain on the left ribcage is better. Cough has improved. We will decrease Solu-Medrol to 20 every 8 hours. We will also change nebulizer to Xopenex every 8 hours. Continue Ativan on p.r.n. basis, Lyrica. Also continue Lidoderm patch at affected area, Tylenol p.r.n. Continue therapy. Thank you and we will follow with you. Nancy Lr MD
[2018-04-02] MEDS: Pantoprazole 40 mg EC Tab PO SCH (05:32)
[2018-04-02] MEDS: Acetylcysteine 20% Inhal Soln (4ml) IH SCH ×4 (07:51→20:25)
[2018-04-02] MEDS: Levalbuterol 1.25 MG/3 ML Inhal Soln UD IH SCH ×4 (07:52→20:25)
[2018-04-02] MEDS: Multivitamin With Minerals Tab PO SCH (08:25)
[2018-04-02] MEDS: Multivitamin Vitamin B Complex (Nephro-Vite) Tab PO SCH (08:25)
[2018-04-02] MEDS: Lidocaine 5% Patch TD SCH (10:24)
[2018-04-02] MEDS: MethylPREDNISolone 40 mg Vial IVP SCH ×2 (10:25→22:27)
[2018-04-02] MEDS: Naproxen 550 mg Tab PO SCH ×2 (10:25→17:40)
--- NOTE | 2018-04-02 18:40 | CP.PCM.PN ---
Subjective - Date & Time of Evaluation Date of Evaluation: 04/02/18 Time of Evaluation: 16:45 - Subjective Subjective: Infectious Disease Follow Up: April 02, 2018 63 yo male with COPD and EtOH abuse history presenting with several days of SOB. Imaging studies suggesting RLL pneumonia and possible cystitis. Patient did have a fall landing on his right side specifically ribcage three days prior to hospitalization. Initial leukocytosis of 15.9 on admission. Leukocytosis has normalized to 6.8. Patient stating that he feels better and feels like he can breathe easier today. Still with tremors to extremities. Appears comfortable and less tremors today. No SOB while speaking. Patient was watching [employer] on the [employer] when seen. Patient has no new complaints. Objective - Vital Signs/Intake and Output Vital Signs (last 24 hours): Temp Pulse Resp BP Pulse Ox 98.1 F 96 H 20 114/81 99 04/02/18 14:32 04/02/18 14:32 04/02/18 14:32 04/02/18 14:32 04/02/18 14:32 - Medications Medications: Current Medications Acetylcysteine (Acetylcysteine 20%) 3 ml IH TID MARISA Last Admin: 04/02/18 13:31 Dose: 3 ml Azithromycin (Zithromax) 500 mg PO DAILY MARISA PRN Reason: Protocol Last Admin: 04/02/18 10:25 Dose: 500 mg Folic Acid (Folic Acid) 1 mg PO DAILY MARISA PRN Reason: Protocol Last Admin: 04/02/18 10:25 Dose: 1 mg Heparin Sodium (Porcine) (Heparin) 5,000 units SC Q8 MARISA PRN Reason: Protocol Last Admin: 04/02/18 13:15 Dose: 5,000 units Levalbuterol HCl (Xopenex) 1.25 mg IH TID MARISA Last Admin: 04/02/18 13:31 Dose: 1.25 mg Lidocaine (Lidoderm) 1 ea TD DAILY MARISA Last Admin: 04/02/18 10:24 Dose: 1 ea Lorazepam (Ativan) 2 mg PO 0600,1400,2200 MARISA PRN Reason: Protocol Last Admin: 04/02/18 13:15 Dose: 2 mg Lorazepam (Ativan) 1 mg IVP Q4H PRN; Protocol PRN Reason: Agitation Methylprednisolone (Solu-Medrol) 40 mg IVP Q12 MARISA PRN Reason: Protocol Last Admin: 04/02/18 10:25 Dose: 40 mg Multivitamins/Minerals (Therapeutic-M Tab) 1 tab PO 0800 MARISA PRN Reason: Protocol Last Admin: 04/02/18 08:25 Dose: 1 tab Naproxen (Anaprox Ds) 550 mg PO BID [facility] Last Admin: 04/02/18 17:40 Dose: 550 mg Nicotine (Nicoderm Cq) 1 patch TD DAILY MARISA PRN Reason: Protocol Last Admin: 04/02/18 10:21 Dose: 1 patch Pantoprazole Sodium (Protonix Ec Tab) 40 mg PO 0630 MARISA PRN Reason: Protocol Last Admin: 04/02/18 05:32 Dose: 40 mg Pregabalin (Lyrica) 25 mg PO BID [facility] Last Admin: 04/02/18 17:39 Dose: 25 mg Thiamine HCl (Vitamin B1 Tab) 200 mg PO DAILY MARISA PRN Reason: Protocol Last Admin: 04/02/18 10:26 Dose: 200 mg Tramadol HCl (Ultram) 50 mg PO 0600,1400,2200 MARISA PRN Reason: Protocol Last Admin: 04/02/18 15:02 Dose: 50 mg Vitamin B Complex/Vit C/Folic Acid (Nephro-Donnie) 1 tab PO 0800 MARISA PRN Reason: Protocol Last Admin: 04/02/18 08:25 Dose: 1 tab - Constitutional Appears: Non-toxic, No Acute Distress, Chronically Ill - Head Exam Head Exam: ATRAUMATIC, NORMOCEPHALIC - Eye Exam Eye Exam: EOMI, PERRL Pupil Exam: NORMAL ACCOMODATION, PERRL - ENT Exam ENT Exam: Mucous Membranes Moist, Normal External Ear Exam, TM's Normal Bilaterally - Respiratory Exam Respiratory Exam: Decreased Breath Sounds, Wheezes. absent: Rales, Rhonchi - Cardiovascular Exam Cardiovascular Exam: REGULAR RHYTHM, RRR, +S1, +S2 - GI/Abdominal Exam GI & Abdominal Exam: Soft, Normal Bowel Sounds. absent: Distended, Tenderness - Extremities Exam Extremities Exam: Full ROM, Normal Inspection Additional comments: decreasing tremors. - Neurological Exam Neurological Exam: Alert, Awake, CN II-XII Intact, Oriented x3 - Skin Skin Exam: Intact, Normal Color Assessment and Plan - Assessment and Plan (Free Text) Assessment: 63 yo male with 3 day history of SOB with PMHx of COPD and EtOH abuse. The patient with findings of RLL pneumonia on imaging studies, possible cystitis, and leukocytosis of 15.9 on admission. Started on Rocephin and Azithromycin for antibiotic care. Patient was in active ETOH withdrawal on admission. Treatment for EtOH withdrawal started on admission. Placed on BiPAP as well. Was in MICU for care initially. Continue Rocpehin and Azithromycin for care. Patient appears to be improving. Leukocytosis has normalized to 6.8. To complete total 10 days of Rocephin IV treatment. Currently on Day 6 of treatment. Patient with no new complaints. Thank you for allowing me to participate in the care of the patient, we will follow with you.
--- NOTE | 2018-04-02 19:48 | PN ---
DATE: 04/02/2018 PULMONARY PROGRESS NOTE REFERRING PHYSICIAN: Susanne Banks MD. SUBJECTIVE: He is lying in the bed, head at 45 degrees. Feels better. Decreased cough, decreased shortness of breath. Still has some tremor. No nausea. No vomiting, diarrhea, leg pain or leg swelling. OBJECTIVE: GENERAL: No acute distress. VITAL SIGNS: Temperature is 98, heart rate is 96, respiratory rate is 20, blood pressure 114/81, pulse ox 99% on nasal cannula. HEENT: Moist mucous membrane. Crowded airway. NECK: Supple. No JVD. LUNGS: Have scattered rhonchi. HEART: S1 and S2. ABDOMEN: Soft, nontender. No organomegaly. EXTREMITIES: No edema. NEUROLOGICAL: Awake and alert, follows simple command. MEDICATIONS: He is on Mucomyst 20% inhaled three times a day, Naprosyn 550 mg twice a day, Ativan 2 mg three times a day, folic acid 1 mg daily, heparin 5000 units subcu every 8 hours, Lidoderm patch at affected area, Lyrica 25 mg twice a day, vitamin B complex daily, Nicoderm patch daily, Protonix 40 mg daily, Solu-Medrol 40 mg every 12 hours, multivitamins daily, Ultram 50 mg three times a day, vitamin B1 at 200 mg daily, Xopenex inhaled three times a day, Zithromax 500 mg daily. LABORATORY DATA: Reviewed. No new lab is available. IMPRESSION AND PLAN: Chronic obstructive lung disease, history of alcohol abuse, right lower lobe aspiration pneumonia, rib fractures, activities of daily living dysfunction, essential tremors, may have a component of sleep apnea syndrome. Pulmonary point of view, he is doing better. Continue IV and inhaled bronchodilator. Continue antibiotics. Continuous positive airway pressure while sleeping. Out of bed to chair. Fall precaution. Continue therapy. Thank you and we will follow with you. Nancy Lr MD
[2018-04-03] MEDS: Pantoprazole 40 mg EC Tab PO SCH (06:18)
--- NOTE | 2018-04-03 06:42 | PN ---
DATE: 04/01/2018 The patient is a 63-year-old male. SUBJECTIVE: The patient was seen and examined on the bedside on 04/01/2018. Looking comfortable. Night was unremarkable. Tolerated CPAP very well. Seems better. Decreased tremors. Getting tapering dose of steroid and tapering dose of Ativan. PHYSICAL EXAMINATION: VITAL SIGNS: Temperature 98, heart rate 90, respiratory rate 20, blood pressure 120/87, pulse oximetry 95% on room air. HEENT: Head, normocephalic and atraumatic. Eyes, PERRLA. Extraocular muscles intact. Conjunctivae clear. Nose patent. Mucous membrane moist. NECK: Supple. No carotid bruit. No JVD or thyromegaly. CHEST: Bilaterally symmetrical. HEART: S1, S2 positive. LUNGS: Clear to auscultation. ABDOMEN: Soft. Bowel sounds present. No organomegaly. EXTREMITIES: No edema. No cyanosis. NEUROLOGIC: The patient is awake, alert. Moving all four extremities. No focal deficit. MEDICATIONS: Naproxen, Ativan, DuoNeb, folic acid, heparin, Lidoderm patch, Lyrica, vitamin B complex, Nicoderm patch, Solu-Medrol, multivitamins, tramadol and Zithromax. LABORATORY DATA: We do not have recent lab today, but I reviewed old labs. ASSESSMENT AND PLAN: Mr. Kody Schultz Jr., is 63 years of age with chronic obstructive lung disease, history of alcohol abuse, right lower lobe aspiration pneumonia, rib cage fracture. He is not able to do his activities of daily livings that is why we brought him to Transitional Care Unit for physical therapy, giving tapering dose of steroid and tapering of patient's Ativan and still he has pain in the left rib, so getting Lidoderm patch and tramadol p.r.n. Cough is improving. Gastrointestinal and deep venous thrombosis prophylaxis. We will follow up. Continue Lyrica and nebulizer treatment. Susanne Banks MD MTDNeyda
[2018-04-03 06:46] LABS: HEMOGLOBIN 11.4 g/dL (14.0-18.0); MEAN CELL VOLUME 99.7 fl (80.0-105.0); MEAN CORPUSCULAR HEMOGLOBIN 32.5 pg (25.0-35.0); MEAN CORPUSCULAR HGB CONC 32.6 g/dl (31.0-37.0); RBC 3.51 10^6/uL (3.5-6.1); RED CELL DISTRIBUTION WIDTH 13.7 % (11.5-14.5); WHITE BLOOD COUNT 10.3 10^3/ul (4.5-11.0)
[2018-04-03 07:00] LABS: BLOOD UREA NITROGEN 18 mg/dL (7-21); CALCIUM 8.6 mg/dL (8.4-10.5); GFR AFRICAN-AMERICAN > 60; GFR NON-AFRICAN AMERICAN > 60
--- NOTE | 2018-04-03 09:01 | CP.PCM.PCO ---
Physician Communication Note - Physician Communication Note Physician Communication Note: pt was seen on 03/30/18, no acute issues, psychiatry signed off,continue meds
[2018-04-03] MEDS: Acetylcysteine 20% Inhal Soln (4ml) IH SCH ×3 (09:26→20:03)
--- NOTE | 2018-04-03 09:26 | PN ---
DATE: 04/02/2018 SUBJECTIVE: Patient is a 63-year-old male. Patient was seen and examined at the bedside, looking comfortable. No nausea, vomiting or diarrhea. No hematuria or hematochezia. No swelling of the legs. No chest pain. No palpitation. Tremors are getting better. No fever. No chills. PHYSICAL EXAMINATION: VITAL SIGNS: Temperature 98.1, pulse 96, blood pressure 114/84, respiratory rate 20. HEENT: Head normocephalic, atraumatic. Eyes PERRLA. Extraocular muscles intact. Conjunctivae clear. Nose patent. Mucous membranes moist. NECK: Supple. No carotid bruit. No JVD or thyromegaly. CHEST: Bilaterally symmetrical. HEART: S1, S2 positive. LUNGS: Clear to auscultation. ABDOMEN: Soft. Bowel sounds present. No organomegaly. EXTREMITIES: No edema. No cyanosis. NEUROLOGIC: The patient is awake and alert. Moving all four extremities. No focal deficit. MEDICATIONS: Acetylcysteine, naproxen, Ativan, folic acid, heparin, Lyrica and Lidoderm patch. LABORATORY DATA: We do not have recent labs today, but I reviewed old labs. ASSESSMENT AND PLAN: The patient is a 63-year-old male with multiple medical problems. Has chronic obstructive lung disease, history of alcohol abuse, right lower lobe aspiration pneumonia, rib cage fractures, especially on the left side. He is not able to do his activities of daily living. Getting tapering dose of Ativan. Cough is better. Getting tapering dose of Solu-Medrol. Patient is Dr. private patient, was getting psych medications. Recalled Psychiatric consult to readjust psych medication. Otherwise, deep vein thrombosis, gastrointestinal prophylaxis. Repeat labs. We will follow up. Susanne Banks MD [facility]
[2018-04-03] MEDS: Levalbuterol 1.25 MG/3 ML Inhal Soln UD IH SCH ×3 (09:27→20:00)
[2018-04-03] MEDS: MethylPREDNISolone 40 mg Vial IVP SCH ×2 (09:55→21:39)
[2018-04-03] MEDS: Multivitamin Vitamin B Complex (Nephro-Vite) Tab PO SCH (09:55)
[2018-04-03] MEDS: Lidocaine 5% Patch TD SCH (09:56)
[2018-04-03] MEDS: Naproxen 550 mg Tab PO SCH ×2 (09:56→17:19)
[2018-04-03] MEDS: Multivitamin With Minerals Tab PO SCH (09:57)
--- NOTE | 2018-04-03 12:12 | PN ---
DATE: 04/03/2018 PULMONARY PROGRESS NOTE REFERRING PHYSICIAN: Susanne Banks MD. SUBJECTIVE: He is ambulating in the hallway with the help of therapist. Night was unremarkable. Feels better. Decreased cough. Decreased shortness of breath. No nausea. No vomiting. No diarrhea. No leg pain or leg swelling. Tremor is also improved. Tolerated CPAP well. OBJECTIVE: GENERAL: In no acute distress. VITAL SIGNS: Temperature is 98, heart rate is 74, respiratory rate is 20, blood pressure 122/83, pulse ox 100% on nasal cannula. HEENT: Moist mucous membrane. Crowded airway. NECK: Supple. No JVD. LUNGS: Have a fair airflow with rhonchi. HEART: S1 and S2. ABDOMEN: Soft, nontender. No organomegaly. EXTREMITIES: There is no edema. NEUROLOGIC: Awake and alert. Follows simple command. MEDICATIONS: He is on Mucomyst 20% 3 mL inhaled three times a day, Naprosyn 550 mg twice a day, lorazepam 2 mg three times a day, folic acid 1 mg daily, heparin 5000 units subcu every 8 hours, lidocaine patch daily at affected area, Lyrica 25 mg twice a day, Nephro vitamins daily, NicoDerm patch daily, Protonix 40 mg daily, Solu-Medrol 30 mg every 12 hours, multivitamins daily, Ultram 50 mg three times a day, vitamin B1 of 200 mg daily, Xopenex inhaled three times a day, Zithromax 500 mg daily. LABORATORY DATA: Shows hemoglobin 11.4, hematocrit 35, WBC 10.3, platelet is 438. Sodium 139, potassium 5, chloride 101, bicarbonate 34, BUN 18, creatinine 0.7, glucose 104, calcium is 8.6. IMPRESSION AND PLAN: Chronic obstructive lung disease, history of alcohol abuse, right lower lobe pneumonia, rib fracture, activities of daily living dysfunction, essential tremors, may have sleep apnea syndrome. Pulmonary point of view, doing good. Agree with decreasing Solu-Medrol. Continue inhaled bronchodilator. Continue pain management. Anxiolytic, fall precaution. Encourage continuous positive airway pressure use. Thank you and we will follow with you. Nancy Lr MD [facility] # [id number]
[2018-04-04] MEDS: Pantoprazole 40 mg EC Tab PO SCH (06:15)
[2018-04-04] MEDS: Levalbuterol 1.25 MG/3 ML Inhal Soln UD IH SCH ×3 (07:13→20:15)
[2018-04-04] MEDS: Acetylcysteine 20% Inhal Soln (4ml) IH SCH ×3 (07:13→20:15)
[2018-04-04] MEDS: Multivitamin Vitamin B Complex (Nephro-Vite) Tab PO SCH (08:20)
[2018-04-04] MEDS: Multivitamin With Minerals Tab PO SCH (08:21)
[2018-04-04] MEDS: Naproxen 550 mg Tab PO SCH ×2 (09:03→17:42)
[2018-04-04] MEDS: Lidocaine 5% Patch TD SCH (09:04)
[2018-04-04] MEDS: MethylPREDNISolone 40 mg Vial IVP SCH ×2 (10:55→21:45)
--- NOTE | 2018-04-04 12:45 | PN ---
DATE: 04/03/2018 SUBJECTIVE: The patient was seen and examined on the bedside on 04/03/2016, looking comfortable. No nausea, vomiting, diarrhea. No hematuria or hematochezia. Was asking medicine for sleep. Otherwise, getting physical therapy, tolerating food very well, tolerating CPAP very well. No hematuria or hematochezia. No fever. No chills. PHYSICAL EXAMINATION: VITAL SIGNS: Temperature 98, heart rate 74, respiratory rate 20, blood pressure 120/80, pulse oximetry 100% on nasal cannula. HEENT: Head normocephalic, atraumatic. Eyes PERRLA. Extraocular muscles intact. Conjunctivae clear. Nose patent. Mucous membrane moist. NECK: Supple. No carotid bruit. No JVD or thyromegaly. CHEST: Bilaterally symmetrical. HEART: S1 and S2 positive. LUNGS: Clear to auscultation. ABDOMEN: Soft. Bowel sounds positive. No organomegaly. EXTREMITIES: No edema. No cyanosis. NEUROLOGICAL: The patient is awake and alert. Moving all 4 extremities. No focal deficits. LABORATORY DATA: Hemoglobin 11.4, hematocrit 35, white blood cells 10.3, platelets 438. Sodium 139, potassium 5, BUN 18, creatinine 0.7, glucose 104. MEDICATIONS: Mucomyst with inhalation, naproxen, folic acid, heparin, lidocaine, Lyrica, Nephro vitamins, NicoDerm, Protonix, Solu-Medrol tapering dose, tramadol, vitamin B1, Xopenex, Zithromax. ASSESSMENT AND PLAN: Mr. Kody Schultz, 63-year-old male with chronic obstructive pulmonary disease; history of ethanol abuse; insomnia; right lower lobe pneumonia; rib fracture, improving very slowly; is not able to do his activities of daily living; lives alone by himself, doing physical therapy. Tremors are improving. The patient has sleep apnea syndrome, using bilevel positive airway pressure. Getting tapering dose of Solu-Medrol. Pattern Maker Programer is on the case. Inhaled bronchodilators. Anxiolytic, fall precautions. Psych consult called with Dr. Michelle Villarreal. The patient has regular psychiatrist, Dr. Rose. We called Dr. Martinez to review the patient's psychiatric medications. Gastrointestinal and deep venous thrombosis prophylaxis. Repeat labs. We will follow up. Susanne Banks MD [facility] # [id number]
[2018-04-04] MEDS ORDERED: MethylPREDNISolone 40 mg Vial IVP SCH (22:42)
--- NOTE | 2018-04-05 02:13 | PN ---
DATE: 04/04/2018 PULMONARY PROGRESS NOTE REFERRING PHYSICIAN: Susanne Banks MD. SUBJECTIVE: He is lying in the bed, sleepy, arousable. Night was unremarkable. Doing well in therapy. Feels better. Decreased cough. Decreased shortness of breath. Still has some tremor. No nausea. No vomiting, diarrhea, leg pain or leg swelling. OBJECTIVE: GENERAL: In no acute distress. VITAL SIGNS: Temperature is 98, heart rate is 82, respiratory rate is 18, blood pressure 108/70, pulse ox 95% on room air. HEENT: Moist mucous membrane. Crowded airway. Mallampati score is IV. NECK: Supple. No JVD. LUNGS: Have a few scattered rhonchi. HEART: S1 and S2. ABDOMEN: Soft, nontender. No organomegaly. EXTREMITIES: No edema. NEUROLOGIC: Awake and alert. Follows simple command. MEDICATIONS: He is on Mucomyst 20% inhaled three times a day, naproxen 550 mg twice a day, Ativan 2 mg three times a day, folic acid 1 mg daily, heparin 5000 units subcu every 8 hours, lidocaine patch daily at affected area, Lyrica 25 mg b.i.d., Nephro vitamins daily, nicotine patch daily, Protonix 40 mg daily, Solu-Medrol 30 mg every 12 hours, multivitamins daily, Ultram 50 mg every 8 hours, vitamin B1 200 mg daily, Xopenex inhaled three times a day, Zithromax 500 mg daily. LABORATORY DATA: Reviewed and shows no new lab is available since yesterday. IMPRESSION AND PLAN: Chronic obstructive lung disease, history of excessive alcohol use, right lower lobe pneumonia, rib fracture, have essential tremors, activities of daily living dysfunction, may have sleep apnea syndrome. Pulmonary point of view, doing okay. Continue to . Continue inhaled bronchodilator, antibiotics, fall precaution, pain management. The patient is urged to stop smoking and avoid alcohol. Thank you and we will follow with you. Nancy Lr MD
[2018-04-05] MEDS: Pantoprazole 40 mg EC Tab PO SCH (05:42)
[2018-04-05] MEDS: MethylPREDNISolone 40 mg Vial IVP SCH ×2 (05:45→17:07)
[2018-04-05] MEDS: Acetylcysteine 20% Inhal Soln (4ml) IH SCH ×3 (07:17→19:17)
[2018-04-05] MEDS: Levalbuterol 1.25 MG/3 ML Inhal Soln UD IH SCH ×3 (07:17→19:17)
[2018-04-05] MEDS: Multivitamin With Minerals Tab PO SCH (08:12)
[2018-04-05] MEDS: Multivitamin Vitamin B Complex (Nephro-Vite) Tab PO SCH (08:12)
[2018-04-05] MEDS: Naproxen 550 mg Tab PO SCH ×2 (10:25→17:07)
[2018-04-05] MEDS: Lidocaine 5% Patch TD SCH (10:25)
--- NOTE | 2018-04-05 12:16 | PN ---
DATE: 04/04/2018 SUBJECTIVE: The patient is 63-year-old male. The patient was seen and examined on the beside on 04/04/2018. Looking comfortable. Getting physical therapy. Sometimes getting anxious. Walking around with walker. Wants walker for home also. No fever. No chills. No nausea, vomiting, diarrhea. No hematuria or hematochezia. No headache. No dizziness. Night was unremarkable. Doing well in therapy. Feels better. Cough and shortness of breath are decreased. PHYSICAL EXAMINATION: VITAL SIGNS: Temperature 98, heart rate 82, respiratory rate 18, blood pressure 108/70, pulse oximetry 95% on room air. HEENT: Head normocephalic, atraumatic. Eyes PERRLA. Extraocular muscles intact. Conjunctivae clear. Nose patent. Mucous membrane moist. NECK: Supple. No carotid bruit. No JVD or thyromegaly. CHEST: Bilaterally symmetrical. HEART: S1 and S2 positive. LUNGS: Clear to auscultation. ABDOMEN: Soft. Bowel sounds positive. No organomegaly. EXTREMITIES: No edema. No cyanosis. NEUROLOGICAL: The patient is awake and alert. Moving all 4 extremities. No focal deficits. LABORATORY DATA: We do not have recent labs today, but I reviewed old labs. MEDICATIONS: Mucomyst, naproxen, Ativan, folic acid, heparin, Lidocaine patch, Lyrica, Nephro vitamins, nicotine patch, Protonix, Solu-Medrol tapering dose, multivitamin, Tramadol, B1, Xopenex. ASSESSMENT AND PLAN: Mr. Kody Schultz, 63-year-old male with chronic obstructive lung disease; history of ethanol abuse; history of fall and left sided on the front rib fractures; right lower lobe pneumonia; history of excessive alcohol abuse; essential tremors; is not able to do his activities of daily living, now improving; sleep apnea syndrome; degenerative joint disease, getting naproxen. Doing better. Deconditioned. Getting physical therapy. We will follow up. Susanne Banks MD
--- NOTE | 2018-04-05 14:45 | PN ---
DATE: 04/05/2018 PULMONARY PROGRESS NOTE REFERRING PHYSICIAN: Susanne Banks MD. SUBJECTIVE: The patient is lying in the bed, head at 45 degrees, on the cellphone, speaking to the family. Night was unremarkable. Tolerated CPAP well. No headache. No rhinitis. Cough is better. No nausea. No vomiting, diarrhea, leg pain, leg swelling. OBJECTIVE: GENERAL: In no acute distress. VITAL SIGNS: Temp is 98, heart rate is 93, respiratory rate is 18, blood pressure 107/76, pulse ox 97% on room air. HEENT: Moist mucous membrane. Crowded airway. Mallampati score is 4. NECK: Supple. No JVD. LUNGS: Have a few scattered rhonchi. HEART: S1 and S2. ABDOMEN: Soft, nontender. No organomegaly. EXTREMITIES: There is no edema. NEUROLOGICAL: Awake and alert. Follows simple command. LABORATORY DATA: Reviewed already. There is no new lab is available. MEDICATIONS: He is on Mucomyst 3 mL inhaled three times a day, Naprosyn 550 mg twice a day, Ativan 2 mg three times a day, folic acid 1 mg daily, heparin 5000 units subcu every 8 hours, Lidoderm patch daily, Lyrica 25 mg twice a day, vitamins B is daily, NicoDerm patches daily, Protonix 40 mg daily, Solu-Medrol 20 mg every 12 hours, multivitamins daily, Ultram 50 mg three times a day, vitamin B1 of 200 mg daily, Xopenex inhaled three times a day. IMPRESSION AND PLAN: Chronic obstructive lung disease, history of excessive alcohol use, right lower lobe pneumonia, rib fracture, essential tremors, may have sleep apnea syndrome. I spoke to social secretary, also spoke to nursing staff. The patient's oxygen dropped down to 86% with exertion at room air, improved with a nasal cannula. Not a candidate for supplement oxygen because of high risk for fire. The patient does have a history of alcohol use, also actively smokes. We will continue IV and inhaled bronchodilators. Outpatiently, pulmonary function test. Also needs sleep study. Hopefully, we will follow outpatient pulse ox if there is an improvement. The patient urged to stop smoking and urged to stop excessive alcohol. Thank you and we will follow with you. Nancy Lr MD [facility] # [id number]
--- NOTE | 2018-04-05 19:39 | CP.PCM.PN ---
Subjective - Date & Time of Evaluation Date of Evaluation: 04/05/18 Time of Evaluation: 17:30 - Subjective Subjective: Infectious Disease Follow Up: April 05, 2018 63 yo male with COPD and EtOH abuse history presenting with several days of SOB. Imaging studies suggesting RLL pneumonia and possible cystitis. Patient did have a fall landing on his right side specifically ribcage three days prior to hospitalization. Initial leukocytosis of 15.9 on admission. Leukocytosis has normalized to 10.3 on last check. Patient stating that he feels better and feels like he can breathe easier today. Still with tremors to extremities. Appears comfortable and less tremors today. No SOB while speaking. Patient was watching TV when seen. He seems to enjoy the [employer] the most. Patient has no new complaints. Objective - Vital Signs/Intake and Output Vital Signs (last 24 hours): Temp Pulse Resp BP Pulse Ox 98.3 F 77 18 98/63 L 99 04/05/18 16:00 04/05/18 16:00 04/05/18 16:00 04/05/18 16:00 04/05/18 16:00 - Medications Medications: Current Medications Acetylcysteine (Acetylcysteine 20%) 3 ml IH TID MARISA Last Admin: 04/05/18 19:17 Dose: 2 ml Folic Acid (Folic Acid) 1 mg PO DAILY MARISA PRN Reason: Protocol Last Admin: 04/05/18 10:25 Dose: 1 mg Heparin Sodium (Porcine) (Heparin) 5,000 units SC Q8 MARISA PRN Reason: Protocol Last Admin: 04/05/18 14:04 Dose: 5,000 units Levalbuterol HCl (Xopenex) 1.25 mg IH TID MARISA Last Admin: 04/05/18 19:17 Dose: 1.25 mg Lidocaine (Lidoderm) 1 ea TD DAILY MARISA Last Admin: 04/05/18 10:25 Dose: 1 ea Lorazepam (Ativan) 2 mg PO 0600,1400,2200 MARISA PRN Reason: Protocol Last Admin: 04/05/18 14:03 Dose: 2 mg Methylprednisolone (Solu-Medrol) 20 mg IVP 0600,1800 MARISA PRN Reason: Protocol Last Admin: 04/05/18 17:07 Dose: 20 mg Multivitamins/Minerals (Therapeutic-M Tab) 1 tab PO 0800 MARISA PRN Reason: Protocol Last Admin: 04/05/18 08:12 Dose: 1 tab Naproxen (Anaprox Ds) 550 mg PO BID [facility] Last Admin: 04/05/18 17:07 Dose: 550 mg Nicotine (Nicoderm Cq) 1 patch TD DAILY MARISA PRN Reason: Protocol Last Admin: 04/05/18 10:25 Dose: 1 patch Pantoprazole Sodium (Protonix Ec Tab) 40 mg PO 0630 MARISA PRN Reason: Protocol Last Admin: 04/05/18 05:42 Dose: 40 mg Pregabalin (Lyrica) 25 mg PO BID MARISA Last Admin: 04/05/18 17:06 Dose: 25 mg Thiamine HCl (Vitamin B1 Tab) 200 mg PO DAILY MARISA PRN Reason: Protocol Last Admin: 04/05/18 10:26 Dose: 200 mg Tramadol HCl (Ultram) 50 mg PO 0600,1400,2200 MARISA PRN Reason: Protocol Last Admin: 04/05/18 14:22 Dose: Not Given Vitamin B Complex/Vit C/Folic Acid (Nephro-Donnie) 1 tab PO 0800 MARISA PRN Reason: Protocol Last Admin: 04/05/18 08:12 Dose: 1 tab - Labs Labs: 04/03/18 06:00 04/03/18 06:00 - Constitutional Appears: Non-toxic, No Acute Distress, Chronically Ill - Head Exam Head Exam: ATRAUMATIC, NORMOCEPHALIC - Eye Exam Eye Exam: EOMI, PERRL Pupil Exam: NORMAL ACCOMODATION, PERRL - ENT Exam ENT Exam: Mucous Membranes Moist, Normal External Ear Exam, TM's Normal Bilaterally - Respiratory Exam Respiratory Exam: Decreased Breath Sounds, NORMAL BREATHING PATTERN. absent: Rales, Rhonchi, Wheezes - Cardiovascular Exam Cardiovascular Exam: REGULAR RHYTHM, RRR, +S1, +S2 - GI/Abdominal Exam GI & Abdominal Exam: Soft, Normal Bowel Sounds. absent: Distended, Tenderness - Extremities Exam Extremities Exam: Full ROM, Normal Inspection Additional comments: decreasing tremors. - Neurological Exam Neurological Exam: Alert, Awake, CN II-XII Intact, Oriented x3 - Psychiatric Exam Psychiatric exam: Normal Affect, Normal Mood - Skin Skin Exam: Intact, Normal Color Assessment and Plan - Assessment and Plan (Free Text) Assessment: 63 yo male with 3 day history of SOB with PMHx of COPD and EtOH abuse. The patient with findings of RLL pneumonia on imaging studies, possible cystitis, and leukocytosis of 15.9 on admission. Started on Rocephin and Azithromycin for antibiotic care. Patient was in active ETOH withdrawal on admission. Treatment for EtOH withdrawal started on admission. Placed on BiPAP as well. Was in MICU for care initially. Continue Rocpehin and Azithromycin for care. Patient appears to be improving. Leukocytosis has normalized to 10.3 on last check. To complete total 10 days of Rocephin IV treatment. Currently on Day 9 of treatment in Transitional care. Patient with no new complaints. Thank you for allowing me to participate in the care of the patient, we will follow with you.
[2018-04-06] MEDS: MethylPREDNISolone 40 mg Vial IVP SCH ×2 (05:37→18:01)
[2018-04-06] MEDS: Pantoprazole 40 mg EC Tab PO SCH (05:37)
[2018-04-06] MEDS: Acetylcysteine 20% Inhal Soln (4ml) IH SCH ×3 (07:11→21:10)
[2018-04-06] MEDS: Levalbuterol 1.25 MG/3 ML Inhal Soln UD IH SCH ×3 (07:12→21:00)
[2018-04-06 07:14] LABS: MEAN CELL VOLUME 99.1 fl (80.0-105.0); MEAN CORPUSCULAR HEMOGLOBIN 32.4 pg (25.0-35.0); MEAN CORPUSCULAR HGB CONC 32.7 g/dl (31.0-37.0); MEAN PLATELET VOLUME 8.8 fl (7.0-11.0); RBC 3.39 10^6/uL (3.5-6.1); RED CELL DISTRIBUTION WIDTH 13.6 % (11.5-14.5); WHITE BLOOD COUNT 8.7 10^3/ul (4.5-11.0)
[2018-04-06] MEDS: Multivitamin Vitamin B Complex (Nephro-Vite) Tab PO SCH (07:47)
[2018-04-06] MEDS: Multivitamin With Minerals Tab PO SCH (07:47)
[2018-04-06 08:01] LABS: BLOOD UREA NITROGEN 16 mg/dL (7-21); CALCIUM 8.4 mg/dL (8.4-10.5); GFR AFRICAN-AMERICAN > 60; GFR NON-AFRICAN AMERICAN > 60
[2018-04-06] MEDS: Naproxen 550 mg Tab PO SCH ×2 (10:13→18:01)
[2018-04-06] MEDS: Lidocaine 5% Patch TD SCH (10:13)
--- NOTE | 2018-04-06 13:40 | PN ---
DATE: 04/05/2018 SUBJECTIVE: The patient is a 63-year-old male. The patient was seen and examined on the bedside, looking comfortable. No nausea, vomiting or diarrhea. No hematuria or hematochezia. No swelling of the legs. No chest pain, no palpitation. No fever, no chills. No headache, no dizziness. PHYSICAL EXAMINATION: VITAL SIGNS: Temperature 98, heart rate 93, respiratory rate 18, blood pressure 110/70. HEENT: Head normocephalic, atraumatic. Eyes PERRLA. Extraocular muscles intact. Conjunctivae clear. Nose patent. Mucous membrane moist. NECK: Supple. No carotid bruit. No JVD or thyromegaly. CHEST: Bilaterally symmetrical. HEART: S1 and S2 positive. LUNGS: Clear to auscultation. ABDOMEN: Soft. Bowel sounds positive. No organomegaly. EXTREMITIES: No edema. No cyanosis. NEUROLOGICAL: The patient is awake and alert. Moving all 4 extremities. No focal deficits. LABORATORY DATA: We do not have labs today, but I reviewed the old labs. MEDICATIONS: Mucomyst, naproxen, Ativan, heparin, Lidoderm, Lyrica, vitamin B, Nicoderm patch, Protonix, Solu-Medrol tapering dose, tramadol, B1, Xopenex. ASSESSMENT AND PLAN: Mr. Kody Schultz is a 63-year-old male with chronic obstructive lung disease; history of excessive alcohol abuse; right lower lobe pneumonia; left-sided rib fracture, improving; essential tremors; deconditioned; sleep apnea syndrome. The patient is getting tapering dose of steroids. The patient's oxygen dropped down to 86 with exertion at room air, improved with nasal cannula, not a candidate for supplement oxygen because of high risk , because of smoking. The patient does have a history of alcohol abuse, also actively smoker, not urging to quit smoking. We will talk to the patient again. Continue inhaled bronchodilators. We will continue physical therapy, gastrointestinal and deep venous thrombosis prophylaxis. Repeat labs. We will follow up. Susanne Banks MD [facility]
[2018-04-06 17:09] VITALS: BP 96/60; PULSE 91; RESP 18; TEMP 98; O2SAT 98
--- NOTE | 2018-04-06 17:36 | PN ---
DATE: 04/06/2018 SUBJECTIVE: Medical team requested reevaluation for medication management. This marketing writer is very familiar with this patient from the consultation services, which took place here in [place] less than a week ago. The patient was seen, was found to be not in danger to self or others. The patient had psychiatrist as outpatient. The patient denied any thoughts of harming himself or others. Psych reconsult was called because the patient was on benzodiazepines and the patient has history of mental illness. The patient was seen and examined today. The patient presented to be alert, pleasant, and cooperative. The patient reported that he feels much better, reported that he feels okay, at times he feels anxious to go back home, but adamantly denied any thoughts of harming himself or others. The patient reported that he was on two benzodiazepines prior to coming to the hospital. It is Xanax and Klonopin, has no clear answer why he was on two anti-anxiolytic medications. The patient reported his primary care psychiatrist was prescribing such medications for him. The patient denied being depressed, denied being hopeless or helpless. Denied hearing things, denied seeing things. Reported to have fair appetite and sleep. Discussed with nursing staff as well as with primary care physician, Dr. Banks. The patient does not have any aggression or agitation. The patient never verbalized thoughts of killing himself. Vital signs seem to be stable. Temperature 98.1, pulse is 76, blood pressure 102/70, respirations 16, oxygen saturation is 100. MEDICATIONS: Reviewed. Acetylcysteine, folic acid, heparin, levalbuterol, Lidoderm, Ativan 2 mg three times a day. The patient is on Solu-Medrol, multivitamins, naproxen, Nicoderm, Protonix, Lyrica, vitamin B1, tramadol, and vitamin B complex. Labs reviewed. Most recent was from today. MENTAL STATUS EXAMINATION: The patient appears to be alert and oriented, pleasant, cooperative, seems to be improving. Fair eye contact. The patient remembered this marketing writer. Mood described "I feel fine." Affect was constricted but reactive, mood congruent. Thought process seems to be coherent and goal directed. Thought content, the patient denied visual, auditory, or tactile hallucinations. Denied paranoid ideations. The patient denied thoughts of harming himself or others. No psychotic symptoms. The patient does not exhibit any aggressive or agitated behavior. Insight and judgment seem to be improving. Impulses are well controlled. IMPRESSION: As per history, anxiety. As per history, alcohol use disorder, but the patient has very poor insight and does not feel that alcohol is a problem for him. PLAN: The patient has followup appointment with Dr. Cale Rose on this coming 04/11/2018. The patient was advised to take medication as it was prescribed. This marketing writer agrees with Ativan 2 mg three times a day and it was discussed with Dr. Banks. The patient should not be on two anti-anxiolytic medications. The patient is not depressed. The patient denied any psychotic symptoms. The patient apparently appears not to be in danger to self or others. The patient has poor insight into his alcohol addiction. Naltrexone was discussed but at present moment, the patient does not want to take it because he does not think that he has alcohol addiction problems. Meanwhile, this marketing writer will sign off. Should you have any questions, give me a call back. Thank you very much for letting me to participate in the care of your patient. Michelle Villarreal MD
--- NOTE | 2018-04-07 00:41 | PN ---
DATE: 04/06/2018 PULMONARY PROGRESS NOTE REFERRING PHYSICIAN: Susanne Banks MD. SUBJECTIVE: The patient is lying in the bed, head at 45 degrees. Night was unremarkable. Feels better. Still needing supplemental oxygen. Cough is better. No nausea, vomiting, diarrhea, leg pain or leg swelling. While in the hospital tolerated CPAP well. OBJECTIVE: GENERAL: In no acute distress. VITAL SIGNS: Temperature is 98, heart rate 91, respiratory rate is 18, blood pressure 96/60, pulse ox of 98% on nasal cannula. HEENT: Moist mucous membrane. Crowded airway. NECK: Supple. No JVD. LUNGS: Have a fair airflow with rhonchi. HEART: S1 and S2. ABDOMEN: Soft, nontender. No organomegaly. EXTREMITIES: There is no edema. NEUROLOGIC: Awake and follows simple command. MEDICATIONS: He is on Mucomyst inhaled three times a day, Naprosyn 550 mg twice a day, Ativan 2 mg three times a day, folic acid 1 mg daily, heparin 5000 subcu every 8 hours, Lidoderm patch daily, Lyrica 25 mg twice a day, Nicoderm patch daily, Protonix 40 mg daily, Solu-Medrol 20 mg every 12 hours, multivitamins daily, Ultram 50 mg three times a day, vitamin B 120 mg daily, Xopenex inhaled 30 times a day. LABORATORY DATA: Shows hemoglobin 11, hematocrit 33.6, WBC 8.7, platelet is . Sodium 140, potassium 3.9, chloride 104, bicarbonate 30, BUN 16, creatinine 0.7, glucose 88, calcium 8.4. IMPRESSION AND PLAN: Chronic obstructive lung disease, history of excessive alcohol use, right lower lobe pneumonia, rib fracture, essential tremor, may have sleep apnea syndrome. Pulmonary point of view, doing much better. We will discontinue supplemental oxygen if pulse ox is 90 and better. Continue bronchodilator. Discontinue Naprosyn. Fall precaution. Continue therapy. Will need PFT and sleep study upon discharge as outpatient. Thank you and we will follow with you. Nancy rL MD [facility] # [phone]
--- NOTE | 2018-04-07 02:46 | PN ---
DATE: 04/06/2018 SUBJECTIVE: The patient is a 63-year-old male. The patient was seen and examined on the bedside on 04/06/2018, looking comfortable. No nausea, vomiting or diarrhea. No hematuria or hematochezia. No swelling of the legs. No chest pain, no palpitation. No headache, no dizziness. MEDICATIONS: Mucomyst, naproxen, heparin, Lidoderm, Lyrica, Nicoderm patch, Protonix, Solu-Medrol tapering dose, multivitamin, tramadol. LABORATORY DATA: Hemoglobin 11, hematocrit 33.4, white blood cells 8.7. Sodium 140, potassium 3.9, BUN 16, creatinine 0.7, glucose 88. ASSESSMENT AND PLAN: Mr. Kody Schultz is a 63-year-old male with chronic obstructive lung disease; history of excessive alcohol use; right lower lobe pneumonia; rib fracture, essential hypertension, history of depression and anxiety, is under the care of Dr. Rose and we called consult , with Dr. Martinez, but according to her, the patient will follow up with Dr. Rose as old patient. Getting physical therapy. Gastrointestinal and deep venous thrombosis prophylaxis. Repeat labs. We will follow up. Susanne Banks MD MTDNeyda
[2018-04-07] MEDS: Pantoprazole 40 mg EC Tab PO SCH (05:30)
[2018-04-07] MEDS: Acetylcysteine 20% Inhal Soln (4ml) IH SCH ×3 (08:19→13:34)
[2018-04-07] MEDS: Levalbuterol 1.25 MG/3 ML Inhal Soln UD IH SCH ×3 (08:19→13:33)
[2018-04-07] MEDS: Multivitamin With Minerals Tab PO SCH (08:37)
[2018-04-07] MEDS: Multivitamin Vitamin B Complex (Nephro-Vite) Tab PO SCH (08:37)
[2018-04-07] MEDS ORDERED: MethylPREDNISolone 40 mg Vial IVP SCH (10:00)
[2018-04-07] MEDS: Lidocaine 5% Patch TD SCH (10:18)
--- NOTE | 2018-04-07 17:22 | CP.PCM.PN ---
Subjective - Date & Time of Evaluation Date of Evaluation: 04/07/18 Time of Evaluation: 14:30 - Subjective Subjective: Infectious Disease Follow Up: April 07, 2018 63 yo male with COPD and EtOH abuse history presenting with several days of SOB. Imaging studies suggesting RLL pneumonia and possible cystitis. Patient did have a fall landing on his right side specifically ribcage three days prior to hospitalization. Initial leukocytosis of 15.9 on admission. Leukocytosis has normalized to 10.3 on last check. Patient stating that he feels better and feels like he can breathe easier today. Still with tremors to extremities. Appears comfortable and less tremors today. No SOB while speaking. Patient was watching TV when seen. He seems to enjoy the [employer] the most. Patient has no new complaints. Completed antibiotics. Supportive care. Possible discharge today. Objective - Vital Signs/Intake and Output Vital Signs (last 24 hours): Temp Pulse Resp BP Pulse Ox 98 F 91 H 18 96/60 L 98 04/06/18 16:00 04/06/18 16:00 04/06/18 16:00 04/06/18 16:00 04/06/18 16:00 - Labs Labs: 04/06/18 07:00 04/06/18 07:00 - Constitutional Appears: Non-toxic, No Acute Distress, Chronically Ill - Head Exam Head Exam: ATRAUMATIC, NORMOCEPHALIC - Eye Exam Eye Exam: EOMI, PERRL Pupil Exam: NORMAL ACCOMODATION, PERRL - ENT Exam ENT Exam: Mucous Membranes Moist, Normal External Ear Exam, TM's Normal Bilaterally - Neck Exam Neck Exam: Full ROM, Normal Inspection - Respiratory Exam Respiratory Exam: Decreased Breath Sounds, NORMAL BREATHING PATTERN. absent: Rales, Rhonchi, Wheezes - Cardiovascular Exam Cardiovascular Exam: REGULAR RHYTHM, RRR, +S1, +S2 - GI/Abdominal Exam GI & Abdominal Exam: Soft, Normal Bowel Sounds. absent: Distended, Tenderness - Extremities Exam Extremities Exam: Full ROM, Normal Inspection Additional comments: mild tremors. - Neurological Exam Neurological Exam: Alert, Awake, CN II-XII Intact, Oriented x3 - Psychiatric Exam Psychiatric exam: Normal Affect, Normal Mood - Skin Skin Exam: Intact, Normal Color Assessment and Plan - Assessment and Plan (Free Text) Assessment: 63 yo male with 3 day history of SOB with PMHx of COPD and EtOH abuse. The patient with findings of RLL pneumonia on imaging studies, possible cystitis, and leukocytosis of 15.9 on admission. Started on Rocephin and Azithromycin for antibiotic care. Patient was in active ETOH withdrawal on admission. Treatment for EtOH withdrawal started on admission. Placed on BiPAP as well. Was in MICU for care initially. Continue Rocpehin and Azithromycin for care. Patient appears to be improving. Leukocytosis has normalized to 10.3 on last check. To complete total 10 days of Rocephin IV treatment. Currently completed Rocephin treatment in Transitional care. Patient with no new complaints. Possible discharge today. Thank you for allowing me to participate in the care of the patient, we will follow with you.
--- NOTE | 2018-04-07 18:31 | PN ---
DATE: 04/07/2018 PULMONARY PROGRESS NOTE REFERRING PHYSICIAN: Susanne Banks MD SUBJECTIVE: He is lying in the bed, head at 45 degrees. Night was unremarkable. Feels better. Decreased cough. Decreased shortness of breath. No nausea. No vomiting. No diarrhea. No leg pain or leg swelling. OBJECTIVE: GENERAL: In no acute distress. VITAL SIGNS: Temperature is 98, heart rate is 91, respiratory rate is 18, blood pressure 96/60, pulse ox 98% on nasal cannula. HEENT: Moist mucous membrane. No ulcer or thrush noted. NECK: Supple. No JVD. LUNGS: Have fair airflow with rhonchi. HEART: S1 and S2. ABDOMEN: Soft, nontender. No organomegaly. EXTREMITIES: No edema. NEUROLOGICAL: Awake and alert. Follows simple command. MEDICATIONS: Reviewed. Noted no new changes in medication reported since yesterday. LABORATORY DATA: Reviewed. No new lab is available since yesterday. IMPRESSION AND PLAN: Chronic obstructive lung disease. History of excessive alcohol use. Status post right lower lobe pneumonia. Status post fall with rib fracture, essential tremor, may have a sleep apnea syndrome. The patient could be discharged home on tapered dose of steroids, inhaled bronchodilator, fall precaution, seizure precaution. I had a long discussion with the patient about smoking and alcohol use and its risk, especially fall. He expressed understanding and will not drink alcohol. Need Dr. Banks's followup. Outpatient attended sleep study. Thank you and we will follow with you. Nancy Lr MD
== END 2018-04-07 16:00 | disposition home or self-care (01) | DRG 178 ==
LOC: TRCU 18:21
PROVIDERS: ADMIT Internal Medicine; ATTEND Internal Medicine
PROC: 5A09357 Assistance with Respiratory Ventilation, Less than 24 Consecutive Hours, Continuous Positive Airway Pressure (ICD-10-PCS; 2018-03-31)
PROC: F07Z9ZZ Gait Training/Functional Ambulation Treatment (ICD-10-PCS; principal; 2018-04-01)
PROC: F07L6YZ Therapeutic Exercise Treatment of Musculoskeletal System - Lower Back / Lower Extremity using Other Equipment (ICD-10-PCS; 2018-04-01)
PROC: F08Z4ZZ Home Management Treatment (ICD-10-PCS; 2018-04-01)
DX: J69.0 Pneumonitis due to inhalation of food and vomit (principal); F10.239 Alcohol dependence with withdrawal, unspecified; J44.9 Chronic obstructive pulmonary disease, unspecified; I10 Essential (primary) hypertension; F17.210 Nicotine dependence, cigarettes, uncomplicated; G25.0 Essential tremor; G47.30 Sleep apnea, unspecified; M19.90 Unspecified osteoarthritis, unspecified site; F41.9 Anxiety disorder, unspecified; G47.00 Insomnia, unspecified; S22.32XD Fracture of one rib, left side, subsequent encounter for fracture with routine healing; W19.XXXD Unspecified fall, subsequent encounter

== ENCOUNTER 2018-05-02 09:33 | Inpatient (IN) | payer MEDICARE, OTHER ==
[2018-05-02 09:37] VITALS: BMI 20.9
[2018-05-02] MEDS ORDERED: Albuterol-Ipratrop 3 mg / 0.5 (3 ml) UD IH STA (10:01)
--- NOTE | 2018-05-02 10:12 | ED PDOC ---
Arrival/HPI - General Chief Complaint: Shortness Of Breath Time Seen by Provider: 05/02/18 09:39 - History of Present Illness Narrative History of Present Illness (Text): 05/02/18 10:03 Patient is a 63 yo M with PMH of COPD, anxiety, and alcohol abuse presents to emergency department complaining chest pain and shortness of breath. Patient states that pain starts laterally on the left side of his lower chest/rib cage and radiates to the left side. Patient states the pain is worsened by movement and coughing. Of note, patient states that he had a rib injury about one month ago due to a fall. Patient states that at baseline he is short of breath due to his history of COPD and generally has a productive cough with white phlegm. The cough is consistent, but the shortness of breath is worse. Patient does admit to being anxious at this time with tremors, which is generally controlled by medications. Patient denies nausea, vomiting, diarrhea, abdominal pain, fever, chills, headache, or dizziness. PMD: Hector Mathis) Past Medical History - Cardiac Hx Cardiac Disorders: Yes (tachycardia) - Pulmonary Hx Respiratory Disorders: Yes Hx Chronic Obstructive Pulmonary Disease (COPD): Yes - Neurological Hx Neurological Disorder: No - HEENT Hx HEENT Disorder: No - Renal Hx Renal Disorder: No - Endocrine/Metabolic Hx Endocrine Disorders: No - Hematological/Oncological Hx Blood Disorders: No - Integumentary Other/Comment: large bruise inner right thigh, multiple bruises to knees and lower legs, bruise left flank, small abrasion rle 0.5cm round bed light red, bilateral feet skaley dry skin with long thick curled toenails, skin discolorations both arms, color slightly flushed - Musculoskeletal/Rheumatological Hx Musculoskeletal Disorders: Yes Hx Falls: Yes (fell 3 days ago-ETOH) Hx Unsteady Gait: Yes (cane, walker) - Gastrointestinal Hx Gastrointestinal Disorders: No - Genitourinary/Gynecological Hx Genitourinary Disorders: No Other/Comment: 2 way bartholomew inserted in ed for accurate i&o - Psychiatric Hx Psychophysiologic Disorder: Yes Hx Anxiety: Yes Hx Substance Use: No (denies) Other/Comment: etoh 5 beers a day last drink this morning - Surgical History Hx Orthopedic Surgery: Yes (right shoulder) Hx Tonsillectomy: Yes - Anesthesia Hx Anesthesia: Yes Hx Anesthesia Reactions: No Hx Malignant Hyperthermia: No Family/Social History Family/Social History: No Known Family HX Smoking Status: Former Smoker Hx Alcohol Use: (5 beers a day; quit 03/2018) Hx Substance Use: No (denies) Allergies/Home Meds Allergies/Adverse Reactions: Allergies No Known Allergies Allergy (Verified 03/30/18 19:29) Home Medications: Home Meds Medication Instructions Recorded Confirmed Tiotropium Veteran Inhaler 2 puff INH DAILY 05/02/18 05/02/18 [Spiriva Inhalation Handihaler Device] Review of Systems - Physician Review All systems were reviewed & negative as marked: Yes (12 point ROS reviewed and is negative other than what is stated in HPI.) Physical Exam Vital Signs Reviewed: Yes Temperature: Afebrile Blood Pressure: Normal Pulse: Tachycardic Respiratory Rate: Tachypneic Appearance: Positive for: Non-Toxic Pain Distress: Mild Mental Status: Positive for: Alert and Oriented X 3 - Systems Exam Head: Present: Atraumatic, Normocephalic Pupils: Present: PERRL Extroacular Muscles: Present: EOMI Conjunctiva: Present: Normal Mouth: Present: Moist Mucous Membranes Neck: Present: Normal Range of Motion Respiratory/Chest: Present: Clear to Auscultation, Decreased Breath Sounds. No : Respiratory Distress, Wheezes, Rales, Rhonchi Cardiovascular: Present: Regular Rate and Rhythm, Normal S1, S2. No: Murmurs, Rub, Gallop Abdomen: No: Tenderness, Distention, Rebound, Guarding Upper Extremity: Present: Normal Inspection. No: Cyanosis, Edema Lower Extremity: Present: Normal Inspection. No: Edema Neurological: Present: GCS=15, CN II-XII Intact, Speech Normal Skin: Present: Warm, Dry, Normal Color. No: Rashes Psychiatric: Present: Alert, Oriented x 3, Normal Insight, Normal Concentration Vital Signs Temp Pulse Resp BP Pulse Ox 05/02/18 13:28 105 H 18 115/64 95 05/02/18 11:14 103 H 18 122/85 100 05/02/18 09:40 97.9 F 103 H 19 143/71 93 L Medical Decision Making ED Course and Treatment: 05/02/18 10:15 63 yo M presents to emergency department for chest pain and shortness of breath. Plan: - CBC, CMP - Coags - Cardiac ISO - BNP - Chest X-ray - ABG shock - Serum alcohol - EKG - Duoneb - Xanax - Solumedrol - Reassess and disposition 05/02/18 10:16 EKG reviewed and showed rate of 103, sinus tachycardia, left axis deviation. 05/02/18 11:01 Chest X-ray reviewed by radiologist shows healing rib fractures on left. No active disease. ABG reveals hypoxia with pO2 at 49 likely 2/2 to worsening of his COPD, pH 7.47 , pCO2 34. 05/02/18 11:[address] Lr, who is familiar with patient and agrees with plan. 05/02/18 12:26 Reassessment: Patient lying comfortably in bed, no acute distress. Patient states that dyspnea is improved with O2 via NC. Monitoring showing sinus tachycardia with rate ~110. Patient states that he also still anxious, but improved with Xanax. On exam, lungs are clear to auscultation bilaterally, but there is decreased air movement bilaterally. Dr. Lr in room to evaluate patient states that tachycardia is likely 2/2 to COPD/hypoxia. Discussed patient with Dr. Banks, who agrees with plan and agrees to admit patient to her service. Dr. Banks requests Dr. Lr for pulmonology consult. Patient will be admitted to telemetry. (Hector Jung) 05/02/18 17:34 Patient seen and evaluated with medical historian. On exam patient with PALPABLE left sided and mid chest pain, worse with movement. Suspect this pain is partly related to prior rib fracture noted on prior admission. On exam, also tremulous , mildly tachycardic. There is bilateral wheezes noted. Duonebs given. Persistent wheezing noted thus consulted Dr. Lr, pulmunology. ABG reviewed. Chest X-ray reading as per radiologist, no pneumothorax, no acute process. I did review RECENT CT ANGIO from last admission, patient with no calf pain or swelling. NO PE NOTED on recent ct angio. Patient tachycardia I feel somewhat related to anxiety. Patient evaluated by Dr. Lr in Emergency department. (Simone Sanon) - Lab Interpretations Lab Results: 05/02/18 10:00 05/02/18 10:00 Lab Results 05/02/18 10:20: pCO2 34 L, pO2 49.0 L, HCO3 24.7, ABG pH 7.47 H, ABG Total CO2 25.7, ABG O2 Saturation 92.3 L, ABG Base Excess 1.5, ABG Potassium 3.1 L, Glucose 91, Lactate 0.8, FiO2 21.0, Sodium 138.0, Chloride 109.0 H, Arterial Blood Potassium 3.1 L 05/02/18 10:00: Alcohol, Quantitative < 10 05/02/18 10:00: Sodium 139, Potassium 4.1, Chloride 101, Carbon Dioxide 30, Anion Gap 12, BUN 2 L, Creatinine 0.5 L, Est GFR ( Amer) > 60, Est GFR ( Non-Af Amer) > 60, Random Glucose 99, Calcium 9.1, Total Bilirubin 0.7, AST 32, ALT 31, Alkaline Phosphatase 93, Lactate Dehydrogenase 507, Total Creatine Kinase 36, Troponin I < 0.01 D, NT-Pro-B Natriuret Pep 94.2, Total Protein 7.0 , Albumin 3.9, Globulin 3.1, Albumin/Globulin Ratio 1.3 05/02/18 10:00: PT 12.2, INR 1.06, APTT 29.5 05/02/18 10:00: WBC 7.3, RBC 3.87, Hgb 12.5 L, Hct 37.5 L, MCV 96.9, MCH 32.3, MCHC 33.3, RDW 13.3, Plt Count 220, MPV 9.4, Gran % 67.2, Lymph % (Auto) 16.8 L , [place] % (Auto) 14.2 H, Eos % (Auto) 1.1 L, Baso % (Auto) 0.7, Gran # 4.90, Lymph # (Auto) 1.2, [place] # (Auto) 1.0 H, Eos # (Auto) 0.1, Baso # (Auto) 0.05 - RAD Interpretation Radiology Orders: 05/02/18 09:53 CHEST PORTABLE [RAD] Stat - Medication Orders Current Medication Orders: Albuterol Sulfate (Albuterol 0.083% Inhal Radha (2.5 Mg/3 Ml) Ud) 2.5 mg IH QIDRESP PRN PRN Reason: Shortness of Breath Alprazolam (Xanax) 0.5 mg PO BID MARISA PRN Reason: Protocol Stop: 05/09/18 18:01 Folic Acid (Folic Acid) 1 mg PO DAILY [facility] Multivitamins/Minerals (Therapeutic-M Tab) 1 tab PO 0800 [facility] Non-Formulary Medication (Budesonide/Formoterol Fumarate [Symbicort 160-4.5 Mcg Inhaler]) 2 aer IH BID [facility] Non-Formulary Medication (Lidocaine [Lidocaine]) 50 gm TP BID [facility] Pregabalin (Lyrica) 25 mg PO HS [facility] Thiamine HCl (Vitamin B1 Tab) 200 mg PO DAILY [facility] Tiotropium Veteran (Spiriva) 18 mcg INH DAILY [facility] Tramadol HCl (Ultram) 50 mg PO TID [facility] Vitamin B Complex/Vit C/Folic Acid (Nephro-Donnie) 1 tab PO 0800 [facility] Discontinued Medications Albuterol/Ipratropium (Duoneb 3 Mg/0.5 Mg (3 Ml) Ud) 3 ml IH STAT STA Stop: 05/02/18 10:02 Last Admin: 05/02/18 10:36 Dose: 3 ml Albuterol/Ipratropium (Duoneb 3 Mg/0.5 Mg (3 Ml) Ud) 3 ml IH Q15M MARISA Stop: 05/02/18 11:16 Last Admin: 05/02/18 11:22 Dose: Alprazolam (Xanax) 0.5 mg PO STAT STA PRN Reason: Protocol Stop: 05/02/18 10:02 Last Admin: 05/02/18 10:36 Dose: 0.5 mg Methylprednisolone (Solu-Medrol) 125 mg IVP STAT STA Stop: 05/02/18 10:36 Last Admin: 05/02/18 10:30 Dose: 125 mg IVP Administration Document 05/02/18 10:30 (Rec: 05/02/18 10:46 [facility]-[id number]) Charges for Administration # of IVP Administrations 1 Disposition/Present on Arrival - Present on Arrival Any Indicators Present on Arrival: No History of DVT/PE: No History of Uncontrolled Diabetes: No Urinary Catheter: No (inserted in ed) History of Decub. Ulcer: No History Surgical Site Infection Following: None - Disposition Have Diagnosis and Disposition been Completed?: Yes Disposition Time: 14:32 Patient Plan: Admission, Telemetry - Disposition Diagnosis: COPD exacerbation, Anxiety, Chest pain Disposition: HOSPITALIZED Patient Problems: Current Active Problems Problem Status Onset Anxiety Acute COPD exacerbation Acute Condition: STABLE
[2018-05-02 10:29] LABS: ARTERIAL BLOOD GAS HCO3 24.7 mmol/L (21-28); ARTERIAL BLOOD GAS O2 SAT 92.3 % (95-98); ARTERIAL BLOOD GAS PCO2 34 mm/Hg (35-45); ARTERIAL BLOOD GAS PH 7.47 (7.35-7.45); ARTERIAL BLOOD GAS TCO2 25.7 mmol.L (22-28)
[2018-05-02] MEDS: Albuterol-Ipratrop 3 mg / 0.5 (3 ml) UD IH SCH ×3 (10:46→11:22)
--- NOTE | 2018-05-02 10:59 | RAD ---
HISTORY: sob COMPARISON: 03/27/2018 FINDINGS: LUNGS: No active pulmonary disease. PLEURA: No significant pleural effusion identified, no pneumothorax apparent. CARDIOVASCULAR: Normal. OSSEOUS STRUCTURES: Healing rib fractures on the left VISUALIZED UPPER ABDOMEN: Normal. OTHER FINDINGS: None. IMPRESSION: No active disease.
[2018-05-02 11:05] LABS: BASO # 0.05 K/mm3 (0.0-2.0); BASO % 0.7 % (0.0-3.0); EOS # 0.1 (0.0-0.7); EOS % 1.1 % (1.5-5.0); GRAN # 4.9 (1.4-6.5); GRAN % 67.2 % (50.0-68.0); HEMOGLOBIN 12.5 g/dL (14.0-18.0); LYMPH # 1.2 (1.2-3.4); LYMPH % 16.8 % (22.0-35.0); MEAN CELL VOLUME 96.9 fl (80.0-105.0); MEAN CORPUSCULAR HEMOGLOBIN 32.3 pg (25.0-35.0); MEAN CORPUSCULAR HGB CONC 33.3 g/dl (31.0-37.0); MEAN PLATELET VOLUME 9.4 fl (7.0-11.0); MONO % 14.2 % (1.0-6.0); RBC 3.87 10^6/uL (3.5-6.1); RED CELL DISTRIBUTION WIDTH 13.3 % (11.5-14.5); WHITE BLOOD COUNT 7.3 10^3/ul (4.5-11.0)
[2018-05-02 11:09] LABS: INR 1.06 (0.93-1.08); PARTIAL THROMBOPLASTIN TIME 29.5 Seconds (25.1-36.5); PROTHROMBIN TIME 12.2 SECONDS (9.4-12.5)
[2018-05-02 11:13] LABS: B-TYPE NATRIURETIC PEPTIDE 94.2 pg/mL (0-450); TROPONIN I < 0.01 ng/mL
[2018-05-02 11:33] LABS: ALB/GLOB RATIO 1.3 (1.1-1.8); ALBUMIN 3.9 g/dL (3.0-4.8); ALT/SGPT 31 U/L (7-56); AST/SGOT 32 U/L (17-59); BLOOD UREA NITROGEN 2 mg/dL (7-21); CALCIUM 9.1 mg/dL (8.4-10.5); GFR AFRICAN-AMERICAN > 60; GFR NON-AFRICAN AMERICAN > 60
--- NOTE | 2018-05-02 13:47 | CARD ---
APPROVED REPORT EKG Measurement Heart [id number] <Conclusion> Sinus tachycardia Left axis deviation Abnormal ECG
[2018-05-02] MEDS ORDERED: Non Formulary Medication (Budesonide/Formoterol Fumarate [Symbicort 160-4.5 Mcg Inhaler] 2 IH SCH (18:00)
[2018-05-02] MEDS: Tiotropium 18 mcg Cap For Inhalation INH SCH (18:16)
[2018-05-02] MEDS: LIDOCAINE TP SCH (18:16)
[2018-05-02] MEDS ORDERED: Pneumococcal 23-Valent Vaccine IM ONE (19:01)
[2018-05-02] MEDS ORDERED: Albuterol 0.083% Inhal Sol (2.5 mg/3 mL) UD IH PRN (19:30)
[2018-05-02] MEDS: Levalbuterol 0.63 MG/3 ML Inhal Soln UD IH SCH (20:05)
[2018-05-02] MEDS: MethylPREDNISolone 40 mg Vial IVP SCH (21:47)
--- NOTE | 2018-05-03 02:08 | CON ---
DATE: 05/02/2018 PULMONARY CONSULTATION REFERRING PHYSICIAN: Susanne Banks MD REASON FOR CONSULTATION: Cough, shortness of breath, pleuritic-type pain. HISTORY OF PRESENT ILLNESS: This is a 63-year-old gentleman well known to me from office and previous admission, recently discharged after prolonged hospitalization, has severe obstructive lung disease, anxiety disorder in the past, has alcohol use, status post multiple falls, last admission has a left-sided rib fracture. According to patient, since last discharge, he has stopped smoking and stopped using alcohol. He is on high dose of benzodiazepine for his anxiety. Has cough, shortness of breath. No nausea, no vomiting, no diarrhea. No leg pain or leg swelling. PAST MEDICAL HISTORY: Chronic obstructive lung disease, anxiety disorder, history of alcohol abuse. FAMILY HISTORY: No significant cardiopulmonary disease reported. SOCIAL HISTORY: Stopped smoking recently. Also, stopped drinking alcohol recently. ALLERGIES: NONE KNOWN. MEDICATIONS: He has been placed on DuoNeb every 6 hours p.r.n. Outpatient, he has been on Symbicort, folic acid 1 mg daily, lidocaine patch to the affected area, Lyrica 25 mg at bedtime, Spiriva 18 mcg capsule inhaled daily, multivitamins daily, Ultram 50 mg three times a day, vitamin B1 at 200 mg daily, Xanax 0.5 mg twice a day. REVIEW OF SYSTEMS: No headache, not much rhinitis. Has a cough, shortness of breath, muscular-type chest pain. No nausea, no vomiting. No diarrhea, no dysuria. No leg pain, no leg swelling. PHYSICAL EXAMINATION: GENERAL: Lying in the bed, mild distress. VITAL SIGNS: Temp is 98, heart rate is 105, respiratory rate is 20, blood pressure 115/64, pulse ox 95% on nasal cannula. HEENT: Moist mucous membrane. Crowded airway. NECK: Supple. No JVD. LUNGS: Have a poor airflow. Prolonged expiratory phase with wheezing. HEART: S1 and S2, tachycardic. ABDOMEN: Soft, nontender, no organomegaly. EXTREMITIES: There is no edema. NEUROLOGIC: Awake and alert. Follows simple command. LABORATORY DATA: Shows hemoglobin 12.5, hematocrit 37.5, WBC is 7.3, platelet count is 220. INR 1.06, PTT is 30. ABG show pH 7.47, pCO2 of 34, O2 was 49. Sodium 139, potassium 4.1, chloride 101, bicarbonate 30, BUN , creatinine 0.5, glucose 99, calcium 9.1. AST 32, ALT 31, alk phos is 93. Troponin less than 0.01. Albumin 3.9. Had a chest x-ray done, which shows no infiltrate or effusion. Has a healing rib fracture on the left. IMPRESSION AND PLAN: Exacerbation of chronic obstructive lung disease, anxiety disorder, history of alcohol abuse, history of multiple falls with partially healed left rib fracture, activities of daily life dysfunction, high risk for fall because of benzodiazepine on board. Spoke to ER physician. I agree with the present management. We will add Solu-Medrol, doxycycline, nebulizer treatment. Gastric and deep venous thrombosis prophylaxis. Physical therapy. Thank you and we will follow with you. Nancy Lr MD
[2018-05-03 06:18] LABS: HEMOGLOBIN 11.5 g/dL (14.0-18.0); MEAN CELL VOLUME 94.6 fl (80.0-105.0); MEAN CORPUSCULAR HEMOGLOBIN 32.4 pg (25.0-35.0); MEAN CORPUSCULAR HGB CONC 34.2 g/dl (31.0-37.0); MEAN PLATELET VOLUME 9.4 fl (7.0-11.0); RBC 3.55 10^6/uL (3.5-6.1); RED CELL DISTRIBUTION WIDTH 12.9 % (11.5-14.5); WHITE BLOOD COUNT 6.7 10^3/ul (4.5-11.0)
[2018-05-03 06:22] LABS: IRON 46 ug/dL (45-180)
[2018-05-03 06:30] LABS: BLOOD UREA NITROGEN 6 mg/dL (7-21); CALCIUM 8.7 mg/dL (8.4-10.5); GFR AFRICAN-AMERICAN > 60; GFR NON-AFRICAN AMERICAN > 60; HDL CHOLESTEROL 53 mg/dL (29-60)
[2018-05-03 06:32] LABS: % IRON SATURATION 18 % (20-55); TOTAL IRON BINDING CAPACITY 249 ug/dL (261-462)
[2018-05-03 06:34] LABS: LDL CHOLESTEROL 83 mg/dL (0-129)
[2018-05-03] MEDS: Levalbuterol 0.63 MG/3 ML Inhal Soln UD IH SCH ×3 (08:05→19:37)
[2018-05-03] MEDS: Acetylcysteine 20% Inhal Soln (4ml) INH SCH ×3 (08:05→19:37)
[2018-05-03] MEDS: Multivitamin Vitamin B Complex (Nephro-Vite) Tab PO SCH (08:40)
[2018-05-03] MEDS: Multivitamin With Minerals Tab PO SCH (08:40)
[2018-05-03] MEDS: MethylPREDNISolone 40 mg Vial IVP SCH ×2 (09:29→21:40)
[2018-05-03] MEDS: Tiotropium 18 mcg Cap For Inhalation INH SCH (09:31)
--- NOTE | 2018-05-03 09:37 | HP ---
DATE OF EXAM: 05/02/2018 CHIEF COMPLAINT: Shortness of breath. HISTORY OF PRESENT ILLNESS: Mr. Schultz is a 63-year-old male with a past medical history of COPD, anxiety, alcohol abuse, history of heavy drinking, came to the emergency room, complaining about chest pain and shortness of breath. Patient states that pain starts from the right side of his lower chest ribs and cage and radiates to the left side. Patient states that pain is worsened by movement and coughing. He had a history of rib injury on the left side about one month ago due to fall when he was drunk, previously he was at his baseline. He has shortness of breath due to his history of COPD, anxiety, asthma, and he has progressive cough with white phlegm. The cough is consistent but the shortness of breath is worse. Patient denies being anxious , controlled by medication. No nausea, vomiting, or diarrhea. No hematuria or hematochezia. No fever. No chills. No headache. No dizziness. I saw patient in telemetry. Still complaining about bilateral chest pain but in the lower portion. PAST MEDICAL HISTORY: Tachycardia, COPD, history of falls, using cane and walker, history of Jacob catheter insertion, history of substance abuse, history of right shoulder surgery, noncompliant. FAMILY HISTORY: Father and mother noncontributory. HABITS: Smoking, former smoker. Alcohol, yes, heavy drinking. No substance abuse. REVIEW OF SYSTEMS: Patient seen and examined on the beside, in telemetry, looking comfortable. Shortness of breath is better, but still complaining of bilateral lower chest pain anteriorly. No fever. No chills. No nausea, vomiting, No hematochezia. No swelling of the leg. No headache. No dizziness. No dysuria or hematuria. PHYSICAL EXAMINATION: VITAL SIGNS: Temperature 97.9, pulse 103, respiratory rate 19, blood pressure 133/71, pulse oximetry 93. HEENT: Head normocephalic, atraumatic. Eyes, PERRLA. Extraocular muscles intact. Conjunctivae clear. Nose patent. Mucosus membrane moist. NECK: Supple. No carotid bruit. No JVD or thyromegaly. CHEST: Bilaterally symmetrical. HEART: S1 and S2 positive. LUNGS: Clear to auscultation. ABDOMEN: Soft. Bowel sounds present. No organomegaly. EXTREMITIES: No edema. No cyanosis. NEUROLOGIC: Patient is awake and alert. Follow simple commands. LABORATORY DATA: White blood cell is 7.3, hemoglobin 12.5, hematocrit and platelets noted , creatinine 0.7, glucose noted ASSESSMENT AND PLAN: Mr. Schultz is a 63-year-old male, came with anemia, chest pain, history of chronic obstructive pulmonary disease, anxiety, alcohol abuse, was admitted the last time because of the ethanol overdose, history of fall, history of rib fractures on the right side. We admitted the patient and keeping on observation. GI and deep vein thrombosis prophylaxis. Repeat labs. Discussion done with patient and patient's nursing staff. We will follow up. Susanne Banks MD MTDNeyda
[2018-05-03] MEDS: LIDOCAINE TP SCH ×2 (10:17→18:17)
[2018-05-03] MEDS: Metoprolol Succinate 25 mg XL Tab PO SCH (10:41)
--- NOTE | 2018-05-03 13:18 | PN ---
DATE: 05/03/2018 PULMONARY PROGRESS NOTE REFERRING PHYSICIAN: Susanne Banks MD. SUBJECTIVE: He is sitting up in a chair, feels better than yesterday. Still gets short of breath with exertion. Not much cough. No sputum production. No nausea. No vomiting, diarrhea, leg pain or leg swelling. OBJECTIVE: GENERAL: In no acute distress. VITAL SIGNS: Temperature is 98.7, heart rate is 90, respiratory rate is 19, blood pressure 135/93, pulse ox 97% on 2 L nasal cannula. HEENT: Moist mucous membrane. No ulcer or thrush noted. NECK: Supple. No JVD. LUNGS: Have poor airflow with prolonged expiratory phase. HEART: S1 and S2. ABDOMEN: Soft and nontender. No organomegaly. EXTREMITIES: No edema. NEUROLOGICAL: Awake and alert. Follows simple command. LABORATORY DATA: Shows hemoglobin 11.5, hematocrit 33.6, WBC 6.7, platelet is 220. Sodium 138, potassium 4.1, chloride 102, bicarbonate 27, BUN 6, creatinine 0.4, glucose 137, calcium 8.7, iron is 46, troponin 0.01, cholesterol is 160, TSH is 0.04. MEDICATIONS: He is on Mucomyst 20% inhaled three times a day, albuterol/Atrovent nebulizer p.r.n. basis, Ecotrin 81 mg daily, folic acid 1 mg daily, Klonopin 1 mg four times day, lidocaine patch at affected area, Lyrica 25 mg daily, Nephro vitamins daily, Solu-Medrol 40 mg every 12 hours, Spiriva 1 capsule inhaled daily, multivitamins daily, Toprol-XL 25 mg daily, Ultram 50 mg daily, vitamin B1 at 200 mg daily, Xanax 1 mg four times daily p.r.n., Xopenex inhaled 3 times a day, Zithromax 500 mg daily. IMPRESSION AND PLAN: Exacerbation of chronic obstructive lung disease, history of alcohol abuse, anxiety disorder, history of multiple falls with left-sided rib fractures. Pulmonary point of view, doing okay. Continue IV and inhaled bronchodilator. Continue antibiotics. Gastric prophylaxis. Deep venous thrombosis prophylaxis. Fall precaution. Seen by Cardiology. Noted beta larry was added. Waiting for cardiac workup. Thank you and we will follow with you. Nancy Lr MD [facility] # [id number]
[2018-05-04 00:24] VITALS: RESP 20
--- NOTE | 2018-05-04 03:41 | CON ---
DATE: 05/03/2018 HISTORY OF PRESENT ILLNESS: In short, the patient is 63-year-old male with history of anxiety, COPD, alcohol use disorder. The patient was admitted on the medical side for evaluation of chest pain. Psych consult was called because the patient has history of anxiety and the patient is on psychotropic medication. The patient is familiar to this science writer from the previous admission to the medical side, where the patient was status post fall due to alcohol intoxication. The patient presented this time well. The patient denied that he relapsed on drugs or alcohol. The patient reported that he states over the main reason why he came to the hospital was pain in his chest which is subsiding right now. The patient reported that he followed up with Dr. Cale Rose who prescribed him clonazepam and alprazolam. The patient reported that he filled medication in [facility]. [facility] was contacted and medication list was faxed over to this science writer. It was confirmed that the patient was on clonazepam 1 mg 4 times a day as well as alprazolam 1 mg 4 times a day which the patient filled on 02/20/2018 as well as 04/11/2018. The patient deemed to have the same prescription for past 3 months. The patient seems to be a responsible and reliable patient, never takes more or showed up earlier for a medications refill. The patient expresses concern about the medication and wants to continue the same medication regimen and has followup appointment with Dr. Cale Rose. The patient denied being depressed, denied thoughts of harming himself, denied any psychotic symptoms, denied paranoia. The patient reported that he feels better. MENTAL STATUS EXAMINATION: The patient presented to be alert and oriented, pleasant, cooperative. Good eye contact. Mood described as "I feel fine, I feel better." Thought process seems to be coherent and goal directed. Thought content, the patient denied visual, auditory, tactile hallucinations. Denied paranoid ideation. The patient denied thoughts of harming himself or others, denied intent or plan. Insight and judgment seems to be improving. Impulses are well controlled. IMPRESSION: As per history, the patient is having history of anxiety, rule out generalized anxiety disorder. PLAN: Continue current management. Continue current medication. Medications were confirmed by [facility] at [phone]. The patient filled alprazolam 1 mg 4 times a day on 04/11/2018, also clonazepam 1 mg 4 times a day on 04/11/[address] Cale Rose. We should continue the same medication. At the same time, the patient was advised about risks, benefits and alternatives of the medication. The patient reported that this is the only medication helped him in the past, has followup appointment with Dr. Cale Rose. For primary attending, please do not provide the prescription for benzodiazepines because the patient just filled that medication on 04/11/2018. The patient needs to be followed up with outpatient provider, Dr. Cale Rose. The patient pose no imminent danger to self or others. This science writer will sign off. Should you have any questions, give me a call back. Michelle Villarreal MD MTDD
--- NOTE | 2018-05-04 04:41 | CON ---
SERVICE: Cardiology. REASON FOR CONSULTATION: Cough; shortness of breath; chest pain, pleuritic, increases on twisting and sometime on walking. BRIEF CLINICAL HISTORY: This is a 63-year-old male, active tobacco abuser, recently quit a month ago; history of fall, recently discharged after a fall and rib pain with left-sided rib fracture; came in with complaint of shortness of breath, cough, and pain in the chest with walking and pain from left to right and also on certain angle movement also with chest pain. PAST HISTORY: Significant for chronic obstructive pulmonary disease and anxiety disorder. SOCIAL HISTORY: Heavy alcohol abuser. Heavy tobacco abuser of 1 pack, more than 30 years ago; and alcohol, drinks sometime 12 cans of beer plus hard liquor and sometimes 6 cans of beer everyday. Slowed down recently. FAMILY HISTORY: Nothing significant. CURRENT MEDICATIONS: The patient is taking at home, tramadol, vitamin B complex, prednisone, meloxicam, multivitamin, and lidocaine. REVIEW OF SYSTEMS: As per HPI. PHYSICAL EXAMINATION: VITAL SIGNS: Temperature afebrile, heart rate 86, blood pressure 115/76. HEENT: PERRLA. Extraocular muscles intact. NECK: Supple. No carotid bruit or thyromegaly. CHEST: Clear to auscultation. HEART: S1 and S2, regular. ABDOMEN: Soft. EXTREMITIES: Clubbing and cyanosis negative. LABORATORY DATA: EKG showed sinus tachycardia. Left axis deviation with acute ST-T changes noted. Blood workup as follows: WBC 6.5, hemoglobin 11.9, hematocrit 33.6, and platelet count 220. Chemistry shows sodium 130, potassium , chloride 102, carbon dioxide 27, anion gap of 13. BUN 6, creatinine 0.4. TSH 0.04. Triglyceride 58, cholesterol 160, LDL 83, HDL 53. IMPRESSION: A 63-year-old male, heavy tobacco abuser, heavy alcohol abuser, history of fall, fracture of the rib 3 to 4 weeks ago. Came in with complaint of shortness of breath, cough, and left-sided chest pain, increases with walking as well as on twisting. Claims that it is more bothering his ribs pain. Denies any prior episode of dyspnea on exertion, chest pain on exertion. Troponin remains negative first. Given the lifestyle, the patient's risk factor for coronary artery disease, suggest echocardiogram and a stress test, lipid profile, TSH, hemoglobin A1c because the patient is actively smoking as well as heavy alcohol abuse. Though the chest pain appears most likely from the fracture of ribs and pleuritic, but given the risk factor, we scheduled a stress test tomorrow. Discussed with the patient. The patient is agreeable to proceed for Lexiscan and echo tomorrow. We will follow with you. Also, complete cessation of smoking and complete abstinence of alcohol recommended in admitting the patient. The patient said that he understood the consequences of longtime smoking as well as drinking alcohol abuse. Because the admitting EKG showed sinus tachycardia, we will put low dose of beta-larry because the patient is getting some Proventil treatment as well. We will follow with you and start low dose of baby aspirin. Thank you Dr. Banks, for providing us the opportunity in taking care of Kody Schultz. Nancy Juárez MD
[2018-05-04 06:17] VITALS: TEMP 97.6; O2SAT 99
--- NOTE | 2018-05-04 08:16 | PN ---
DATE: 05/03/2018 SUBJECTIVE: The patient was seen and examined at the bedside, looking comfortable. No nausea, vomiting, or diarrhea. No hematuria or hematochezia. No swelling of the legs. No chest pain. No palpitations. No headache. No dizziness. PHYSICAL EXAMINATION: VITAL SIGNS: Temperature 98.7, heart rate 60, respiratory rate 19, blood pressure 135/93, pulse oximetry 97% on 2 liters nasal cannula. HEENT: Head is normocephalic and atraumatic. Eyes, PERRLA. Extraocular muscles are intact. Conjunctivae are clear. Nose is patent. Mucous membranes are moist. NECK: Supple. No carotid bruit. No JVD or thyromegaly. CHEST: Bilaterally symmetrical. HEART: S1 and S2 positive. LUNGS: Clear to auscultation. ABDOMEN: Soft. Bowel sounds are present. No organomegaly. EXTREMITIES: No edema. No cyanosis. NEUROLOGIC: The patient is awake and alert. Moving all 4 extremities. No focal deficit. LABORATORY DATA: Hemoglobin 11.5, hematocrit 33.2, white blood cells 6.7, platelet 220. Sodium 138, potassium 4.1, BUN 6, creatinine 0.4, glucose 137. Cholesterol 160. TSH 0.04. ASSESSMENT AND PLAN: a 63-year-old male, came with exacerbation of chronic obstructive lung disease, history of ethanol abuse, anxiety disorder, history of multiple falls, ataxia, left-sided rib fracture, was admitted last time. Continue IV and inhaled bronchodilators. Continue antibiotics. Gastric prophylaxis. Deep vein thrombosis prophylaxis. Fall prophylaxis. The patient was seen by division superintendent and sound effects manager, beta-blockers were added. Appreciated Dr. Lr's input. We will continue Mucomyst inhalation, albuterol, Ecotrin, folic acid, Klonopin, lidocaine, Lyrica, nephro-vitamins, Solu-Medrol tapering doses, Spiriva, multivitamins, Toprol, tramadol, vitamin B1, Xanax, Xopenex, and Zithromax. Waiting for Psychiatric input and division superintendent's input. We will follow up. Susanne Banks MD [facility] # [id number] MTDNeyda
[2018-05-04] MEDS: Levalbuterol 0.63 MG/3 ML Inhal Soln UD IH SCH ×2 (08:30→13:33)
[2018-05-04] MEDS: Acetylcysteine 20% Inhal Soln (4ml) INH SCH ×2 (08:30→13:32)
[2018-05-04] MEDS: Multivitamin Vitamin B Complex (Nephro-Vite) Tab PO SCH ×2 (08:35→11:46)
[2018-05-04] MEDS: Multivitamin With Minerals Tab PO SCH ×2 (08:36→11:41)
[2018-05-04] MEDS ORDERED: Aminophylline 25 mg/ml Inj ONE (09:05)
[2018-05-04] MEDS: MethylPREDNISolone 40 mg Vial IVP SCH ×2 (10:00→11:40)
[2018-05-04] MEDS: LIDOCAINE TP SCH (10:00)
[2018-05-04] MEDS: Tiotropium 18 mcg Cap For Inhalation INH SCH ×2 (10:00→11:43)
[2018-05-04] MEDS: Metoprolol Succinate 25 mg XL Tab PO SCH ×2 (10:00→11:41)
[2018-05-04 11:54] VITALS: BP 147/98; PULSE 86
--- NOTE | 2018-05-04 15:54 | PN ---
DATE: 05/04/2018 REASON FOR THE CONSULTATION AND FOLLOWUP: Cough; shortness of breath; chest pain, pleuritic, increases on twisting and sometimes when walking; cardiac evaluation. SUBJECTIVE: The patient denies any chest pain, shortness of breath or any palpitation. OBJECTIVE: GENERAL: Not in any apparent distress. VITAL SIGNS: Temperature is afebrile, heart rate of 79, blood pressure . HEENT: PERRLA. Extraocular muscles intact. NECK: Supple. No carotid bruits or thyromegaly. CHEST: Clear to auscultation. HEART: S1 and S2 regular. ABDOMEN: Soft. EXTREMITIES: Clubbing and cyanosis negative. LABORATORY DATA: Blood workup as follows: WBC , hemoglobin 11, hematocrit 33.6, platelet count 220. Chemistry shows sodium 130, potassium , chloride 102, carbon dioxide 27, anion gap of 30, BUN 6, creatinine 0.4. Troponin 0.01 x2 negative. TSH 0.04, triglycerides 58, cholesterol 160, LDL 83, HDL 53. IMPRESSION: Atypical chest pain, history of rib fracture, no evidence of acute myocardial infarction, history of tobacco abuse, multiple risk factors for coronary artery disease. Suggest echo and stress test today. Suggested to complete cessation of smoking and complete abstinence of alcohol. We will follow with you. Thank you Dr. Banks for providing us the opportunity in taking care of the patient, Kody Schultz. Nancy Juárez MD
--- NOTE | 2018-05-04 21:56 | PN ---
DATE: 05/04/2018 PULMONARY PROGRESS NOTE REFERRING PHYSICIAN: Susanne Banks MD. SUBJECTIVE: The patient is sitting up in a chair. Night was unremarkable. Has a stress test done today. Breathing is a little better. No nausea. No vomiting, diarrhea, leg pain, leg swelling. OBJECTIVE: GENERAL: In no acute distress. VITAL SIGNS: Temperature is 98, heart rate is 88, respiratory rate is 20, blood pressure 147/98, pulse ox 98% on nasal cannula. HEENT: Moist mucous membrane. No ulcer or thrush noted. Crowded airway. LUNGS: Have a prolonged expiratory phase. HEART: S1 and S2. ABDOMEN: Soft, nontender. No organomegaly. EXTREMITIES: There is no edema. NEUROLOGICAL: Awake and alert. Follows simple command. LABORATORY DATA: Reviewed. No new lab reported since yesterday. Has a stress test done, official report is pending. MEDICATIONS: Reviewed. No new changes reported since yesterday. IMPRESSION AND PLAN: Exacerbation of chronic obstructive lung disease, history of alcohol abuse, anxiety disorder, multiple falls with rib fracture. Pulmonary point of view, doing okay. May switch Solu-Medrol to p.o. prednisone. The patient is asked to stop smoking. Need a pulmonary function test and a sleep study upon discharge as outpatient. The patient is on benzodiazepine. I had a long discussion with the patient about high risk for fall. He expressed understanding. Thank you and we will follow with you. Nancy Lr MD
--- NOTE | 2018-05-05 00:27 | CARD ---
APPROVED REPORT Protocol: LEXISCAN Test Type: Lexiscan Sestamibi Stress Test Attending Physician: Dr. Nancy Juárez Referring Physician: Dr. Susanne Banks Test Indications: Chest Pain Height:6 ft 0 in Weight:150lbs Medications: Mucomyst, Albuterol, Xanax, Aspirin, Zithromax, Klonopin, Folic Acid, Xopenex, MVI, Toprol, Lyrica, Vit. B1, Spiriva, Ultram, Nephro-Donnie Medical History: 63 y/o male with a history of COPD, renal failure, positive smoker, positive alcohol abuse Target HR: 159 bpm Resting ECG: normal Resting Heart Rate: 78 bpm Resting Blood Pressure: 154/90mmHg Submaximum (85%): 135 bpm PROCEDURE Pharmacologic stress testing was performed using 0.4mg per 5ml of regadenoson given intravenously over 7-10 seconds. Reversal agent aminophyline 100 mg, given intravenously for Dyspnea. POST EXERCISE Reason for Termination: Protocol completed Target HR: No Max HR: 102 bpm 66% of Maximum Predicted HR: 159 bpm Exercise duration: 03:04 min:sec, 0 Stage Exercise capacity: 1.0METs Max Blood Pressure: 154/90mmHg Blood Pressure response to exercise: normal resting BP - appropriate response Heart Rate response to exercise: appropriate Chest Pain: No, none Angina index: 0 Arrhythmia: No, none ST Change: No, none Deviation: 0 mm TEST SUMMARY [id number]/.0. PREINFSNHYPERV.10:[id number]/90.0. INFUSIONDOSE 101:000.00.01.097/.0. INFUSIONDOSE 201:[id number]/86.0. INFUSIONDOSE 301:[id number]/86.3. INFUSIONDOSE 400:050.00.01.0102/.3. [id number]:200.00.01.090/.4. INTERPRETATION Stress EKG Conclusion: Negative IV Lexiscan for ischemia and for chest pain, Nuclear Scan to follow. Signed by Nancy Juárez Electronically Approved: 05/04/2018 09:43:50 EXAM: Myocardial Perfusion REST/STRESS Stress Test Type: Pharmacologic Imaging Protocol Rest Spect myocardial perfusion imaging was performed in supine position 45 minutes following the injection of 10.7 mCi of Tc-99 Myoview. At peak stress, the patient was injected intravenously with 30.9mCi of Tc-99 tetrofosmin after an infusion time of 0 minutes and 10 seconds. Gated Stress Spect was performed 65 minutes after intravenous Tc-99 Myoview injection. The images were gated to evaluate regional wall motion and calculate ventricular ejection fraction.Images were reconstructed using backfilter projection method in short horizontal and verticle long axis. Spect slices were generated. LV Perfusion The quality of the study is good. The left ventricle is mildly enlarged in size. The right ventricle is unremarkable. The lung uptake is within normal limits. The distribution of tracer reveals mildly to moderately decreased perfusion in the apical and inferior saleem on the stress study. The remainder of the LV myocardium is unremarkable. The rest myocardial perfusion study shows no significant change. Wall Motion Wall motion study shows diffuse hypokinesis of the left ventricle. LVEF = 41%. Conclusion 1. Abnormal SPECT myocardial perfusion study. 2. Fixed, apical and inferior defects are most likely due to diaphragmatic attenuation and/ or previous myocardial injury. 3. Mild to moderate LV dysfunction with diffuse hypokinesis. 4. The above findings are suggestive of cardiomyopathy.
== END 2018-05-04 17:13 | disposition home or self-care (01) | DRG 192 ==
LOC: ED 09:33 → ERH 12:22 → 2RNO 14:27
PROVIDERS: ADMIT Internal Medicine; ATTEND Internal Medicine
PROC: 3E0F7GC Introduction of Other Therapeutic Substance into Respiratory Tract, Via Natural or Artificial Opening (ICD-10-PCS; principal; 2018-05-02)
DX: J44.1 Chronic obstructive pulmonary disease with (acute) exacerbation (principal); R00.0 Tachycardia, unspecified; F41.9 Anxiety disorder, unspecified; F10.10 Alcohol abuse, uncomplicated; D64.9 Anemia, unspecified; R29.6 Repeated falls; Z91.81 History of falling; Z87.891 Personal history of nicotine dependence

== ENCOUNTER 2018-07-23 04:06 | Inpatient (IN) | payer MEDICARE, OTHER ==
--- NOTE | 2018-07-23 04:50 | ED PDOC ---
Arrival/HPI - General Historian: Patient - History of Present Illness Time/Duration: 1-3 hours Symptom Onset: Sudden Symptom Course: Unchanged Quality: Aching Severity Level: 8 <Reginaldo Chávez - Last Filed: 07/23/18 06:49> <Daniela Castillo - Last Filed: 07/23/18 19:23> - General Chief Complaint: Trauma Time Seen by Provider: 07/23/18 04:33 - History of Present Illness Narrative History of Present Illness (Text): 07/23/18 04:49 Patient is a 63 yo M with PMH of COPD, anxiety, and alcohol abuse presents to emergency department complaining of left hip pain s/p fall. Patient states that he slip on a rug at home and fell on his left hip. He denies hitting his head. Patient describes the pain as achy, 8/10, and radiates to anterior thigh. Patient states he was drinking 4-6 beers before the fall. Patient is also complaining of shortness of breath that is his baseline. He denies headaches, fevers, chills, chest pain, abdominal pain, or urinary symptoms. (Reginaldo Chávez) Past Medical History - Provider Review Nursing Documentation Reviewed: Yes - Travel History Have you recently traveled outside [place] w/in the past 3 mons?: No - Cardiac Hx Cardiac Disorders: Yes - Pulmonary Hx Chronic Obstructive Pulmonary Disease (COPD): Yes - Neurological Hx Neurological Disorder: No Other/Comment: chronic shaking - HEENT Hx HEENT Disorder: Yes (eyeglasses) - Renal Hx Renal Disorder: Yes Hx Renal Failure: Yes - Endocrine/Metabolic Hx Endocrine Disorders: No - Hematological/Oncological Hx Blood Disorders: No - Integumentary Hx Dermatological Disorder: Yes Other/Comment: bruises to knees lower legs, L flank,, rle abrasion all healed. b /l feet remain dry scaley hard thick toenails and toenails are thick and curled , skin around toes are dry hard and scaley, multiple skin discolorations both arms - Musculoskeletal/Rheumatological Hx Falls: Yes (recent) - Gastrointestinal Hx Gastrointestinal Disorders: No - Genitourinary/Gynecological Hx Genitourinary Disorders: No - Psychiatric Hx Psychophysiologic Disorder: Yes Hx Anxiety: Yes Hx Substance Use: No Other/Comment: pt denies drinking today, admits to quitting drinking 5 beers a day in march 2018, admits to quit smoking 03/2018, pt has hx of alcohol withdrawal - Surgical History Hx Orthopedic Surgery: Yes (right shoulder fx sx) - Anesthesia Hx Anesthesia: Yes Hx Anesthesia Reactions: No Hx Malignant Hyperthermia: No <Reginaldo Chávez - Last Filed: 07/23/18 06:49> Family/Social History - Physician Review Nursing Documentation Reviewed: Yes Family/Social History: No Known Family HX Smoking Status: Former Smoker Hx Alcohol Use: Yes (quit march 2018 as per pt) Hx Substance Use: No <Reginaldo Chávez - Last Filed: 07/23/18 06:49> Allergies/Home Meds <Reginaldo Chávez - Last Filed: 07/23/18 06:49> <Daniela Castillo - Last Filed: 07/23/18 19:23> Allergies/Adverse Reactions: Allergies No Known Allergies Allergy (Verified 03/30/18 19:29) Home Medications: Home Meds Medication Instructions Recorded Confirmed ALPRAZolam [Xanax] 1 mg PO QID 05/02/18 07/23/18 Albuterol Sulfate [Proair Hfa] 2 puff IH Q4H PRN 05/02/18 07/23/18 Budesonide/Formoterol Fumarate 2 aer IH Q12 05/02/18 07/23/18 [Symbicort 160-4.5 Mcg Inhaler] Meloxicam [Mobic] 15 mg PO DAILY 05/02/18 05/02/18 Ranitidine HCl [Zantac] 150 mg PO BID 05/02/18 05/02/18 Thiamine [Vitamin B1 Tab] 100 mg PO DAILY 05/02/18 07/23/18 Vitamin B Complex/Vit C/Folic 1 tab PO 0800 05/02/18 07/23/18 [Nephro-Donnie] clonazePAM [Klonopin] 1 mg PO QID 05/02/18 07/23/18 traMADol [Ultram] 50 mg PO TID 05/02/18 05/02/18 Review of Systems - Review of Systems Constitutional: Normal. absent: Fevers, Night Sweats Eyes: Normal ENT: Normal Respiratory: Normal, SOB. absent: Cough, Wheezing Cardiovascular: Normal. absent: Chest Pain Gastrointestinal: Normal. absent: Abdominal Pain, Constipation, Diarrhea Genitourinary Male: Normal. absent: Dysuria, Frequency, Hematuria Musculoskeletal: Other (Complains of left hip pain) Skin: Normal. absent: Rash, Pruritis Neurological: Normal. absent: Headache, Dizziness Psychiatric: Normal. absent: Anxiety, Depression <Reginaldo Chávez - Last Filed: 07/23/18 06:49> - Physician Review All systems were reviewed & negative as marked: Yes <AnnaDaniela M - Last Filed: 07/23/18 19:23> Physical Exam Vital Signs Reviewed: Yes Temperature: Afebrile Blood Pressure: Normal Pulse: Regular Respiratory Rate: Normal Appearance: Positive for: Well-Appearing, Comfortable Pain Distress: Mild Mental Status: Positive for: Alert and Oriented X 3 - Systems Exam Head: Present: Atraumatic, Normocephalic. No: Tenderness, Contusion Pupils: Present: PERRL Extroacular Muscles: Present: EOMI Conjunctiva: Present: Normal Mouth: Present: Moist Mucous Membranes Neck: Present: Normal Range of Motion Respiratory/Chest: Present: Clear to Auscultation. No: Respiratory Distress, Accessory Muscle Use, Wheezes, Rales, Rhonchi Cardiovascular: Present: Regular Rate and Rhythm, Normal S1, S2. No: Murmurs, Rub, Gallop Abdomen: Present: Normal Bowel Sounds. No: Tenderness, Distention, Peritoneal Signs Upper Extremity: Present: Normal Inspection. No: Cyanosis, Edema Lower Extremity: Present: Normal Inspection, Tenderness (Left hip and anterior thigh tender to palpation). No: Edema Neurological: Present: GCS=15, CN II-XII Intact, Speech Normal Skin: Present: Warm, Dry. No: Rashes, Normal Color (Skin discolorization seen on b/l upper extremities) Psychiatric: Present: Alert, Oriented x 3, Normal Insight, Normal Concentration <Reginaldo Chávez - Last Filed: 07/23/18 06:49> Vital Signs Temp Pulse Resp BP Pulse Ox 07/23/18 08:25 106 H 22 142/99 H 97 07/23/18 06:06 86 16 136/82 95 07/23/18 04:16 97.9 F 93 H 21 122/64 98 Medical Decision Making <Reginaldo Chávez - Last Filed: 07/23/18 06:49> - Lab Interpretations I have reviewed the lab results: Yes - EKG Interpretation Interpreted by ED Physician: Yes Type: 12 lead EKG - Transfer of Care Patient signed out to Dr:: David Pending Radiology Studies:: L hip XR <Daniela Castillo - Last Filed: 07/23/18 19:23> ED Course and Treatment: 07/23/18 05:11 Impression: Patient is a 63 year old male presenting with left hip pain s/p fall. Differential Diagnosis included but are not limited to: - Hip fracture Plan: -- Hip xray -- Motrin -- Labs -- EKG Progress Notes: 07/23/18 05:16 - Patient complains of left hip pain. Ordered Motrin. 07/23/18 06:48 - Waiting to go to Xray (Reginaldo Chávez) Patient Seen With Resident: In agreement with resident note which contains more details about the patient. Patient was seen and evaluated with resident. Came up with plan and treatment together. 63 year old male presents complaining of left hip pain s/p fall. Plan: -- EKG -- Labs -- Motrin tab -- Hip Bi w/ Pelvis X-ray -- Reassess and disposition (Daniela Castillo) - Lab Interpretations Lab Results: 07/23/18 04:35 07/23/18 04:35 Lab Results 07/23/18 04:35: Sodium 135, Potassium 4.0, Chloride 97 L, Carbon Dioxide 19 L, Anion Gap 23 H, BUN 11, Creatinine 0.5 L, Est GFR ( Amer) > 60, Est GFR ( Non-Af Amer) > 60, Random Glucose 58 L, Calcium 8.4, Total Bilirubin 1.3, AST 123 H D, ALT 66 H, Alkaline Phosphatase 136 H D, Total Protein 7.4, Albumin 4.5 , Globulin 2.8, Albumin/Globulin Ratio 1.6 07/23/18 04:35: PT 10.8, INR 0.95, APTT 27.7 07/23/18 04:35: WBC 12.7 H D, RBC 4.10, Hgb 13.8 L D, Hct 39.4 L, MCV 96.1, MCH 33.7, MCHC 35.0, RDW 13.6, Plt Count 294, MPV 9.2, Gran % 79.3 H, Lymph % (Auto ) 9.0 L, [place] % (Auto) 11.2 H, Eos % (Auto) 0.0 L, Baso % (Auto) 0.5, Gran # 10.08 H, Lymph # (Auto) 1.2, [place] # (Auto) 1.4 H, Eos # (Auto) 0.0, Baso # (Auto ) 0.06 - RAD Interpretation Radiology Orders: 07/23/18 04:59 Hip Bi with Pelvis Fall Protocol [HIP MIN 2V W/ PELVIS JOSH] [RAD] Stat 07/23/18 08:04 RIBS LEFT & PA CHEST [RAD] Stat - Medication Orders Current Medication Orders: Acetylcysteine (Acetylcysteine 20%) 4 ml IH [id number] MARISA Albuterol Sulfate (Albuterol 0.083% Inhal Radha (2.5 Mg/3 Ml) Ud) 2.5 mg IH [id number] PRN PRN Reason: Cough and congestion Last Admin: 07/23/18 11:22 Dose: 2.5 mg Arformoterol Tartrate (Brovana) 15 mcg IH [id number] MARISA Budesonide (Pulmicort Respules) 0.25 mg IH [id number] MARISA Chlordiazepoxide (Librium) 25 mg PO Q6 MARISA PRN Reason: Taper Stop: 07/27/18 11:29 Last Admin: 07/23/18 17:23 Dose: 25 mg Behavioural Document 07/23/18 17:23 SD (Rec: 07/23/18 17:23 [place] [facility] [id number] Maintenance Maintenance Dose No Nonmedicinal Nonmedicinal Interventions Therapeutic Communication Behavior Behavior for Medication: Anxiety Re-Assess: Reassess Psych Meds Document 07/23/18 18:23 SD (Rec: 07/23/18 18:27 SD [id number]) Reassess Psych Med Effective Clonazepam (Klonopin) 1 mg PO QID MARISA PRN Reason: Protocol Last Admin: 07/23/18 17:23 Dose: 1 mg Behavioural Document 07/23/18 17:23 SD (Rec: 07/23/18 17:23 [place] [facility] [id number][place] Maintenance Maintenance Dose Yes Re-Assess: Reassess Psych Meds Document 07/23/18 18:23 SD (Rec: 07/23/18 18:27 SD [id number]) Reassess Psych Med Effective Famotidine (Pepcid) 20 mg PO BID [facility] Last Admin: 07/23/18 17:23 Dose: 20 mg Folic Acid (Folic Acid) 1 mg PO DAILY [facility] Last Admin: 07/23/18 10:24 Dose: 1 mg Hydromorphone HCl (Dilaudid) 0.5 mg IVP Q4H PRN PRN Reason: Pain, severe (8-10) Last Admin: 07/23/18 16:47 Dose: 0.5 mg [facility] Pain Assessment Document 07/23/18 16:47 SD (Rec: 07/23/18 16:49 SD [facility] [id number]) Pain Reassessment Is this a pain reassessment? No Presence of Pain Presence of Pain Yes Pain Scale Used Pain Scale Used Numeric Location Left, Right or Bilateral Left Pain Location Body Site Hip Description Description Constant Pain Behavior Facial Grimacing IVP Administration Document 07/23/18 16:47 SD (Rec: 07/23/18 16:49 SD [facility] [id number]) Charges for Administration # of IVP Administrations 1 Re-Assess: [facility] Pain Assessment Document 07/23/18 17:47 SD (Rec: 07/23/18 17:52 SD [id number]) Pain Reassessment Is this a pain reassessment? Yes Sleep Is patient sleeping during reassessment? No Presence of Pain Presence of Pain Yes Pain Scale Used Pain Scale Used Numeric Location Left, Right or Bilateral Left Pain Location Body Site Leg Description Description Constant Intensity of Pain at present 7 Folic Acid 1 mg/ Thiamine HCl 100 mg/ Multivitamins/Vitamin C 10 ml/ Dextrose 1 ,011.2 mls @ 100 mls/hr IV .Q10H7M [facility] Last Admin: 07/23/18 12:14 Dose: 100 mls/hr eMAR Start Stop Document 07/23/18 12:14 SD (Rec: 07/23/18 12:14 SD [facility] [id number]) Intravenous Solution Start Date 07/23/18 Start Time 12:14 Lidocaine (Lidoderm) 1 ea TD DAILY [facility] Metoprolol Succinate (Toprol Xl) 25 mg PO DAILY [facility] Last Admin: 07/23/18 10:24 Dose: 25 mg [facility] Pulse and Blood Pressure Document 07/23/18 10:24 SD (Rec: 07/23/18 10:24 SD [facility] [id number]) Blood Pressure Blood Pressure (100/60-150/90) 159/98 Montelukast Sodium (Singulair) 10 mg PO HS [facility] Non-Formulary Medication (Budesonide/Formoterol Fumarate [Symbicort 160-4.5 Mcg Inhaler]) 2 aer IH Q12 [facility] Last Admin: 07/23/18 10:25 Dose: Oxycodone/Acetaminophen (Percocet 5/325 Mg Tab) 1 tab PO Q6H PRN PRN Reason: Pain, moderate (4-7) Stop: 07/26/18 16:03 Last Admin: 07/23/18 17:55 Dose: 1 tab [facility] Pain Assessment Document 07/23/18 17:55 SD (Rec: 07/23/18 17:56 SD [facility] [id number]) Pain Reassessment Is this a pain reassessment? No Presence of Pain Presence of Pain Yes Pain Scale Used Pain Scale Used Numeric Location Left, Right or Bilateral Left Pain Location Body Site Leg Description Description Constant Intensity of Pain at present 7 Re-Assess: [facility] Pain Assessment Document 07/23/18 18:55 SD (Rec: 07/23/18 18:57 SD [id number]) Pain Reassessment Is this a pain reassessment? Yes Sleep Is patient sleeping during reassessment? Yes Prednisone (Prednisone Tab) 10 mg PO DAILY [facility] Last Admin: 07/23/18 16:50 Dose: 10 mg Pregabalin (Lyrica) 25 mg PO TID [facility] Last Admin: 07/23/18 17:23 Dose: 25 mg Thiamine HCl (Vitamin B1 Tab) 100 mg PO DAILY [facility] Last Admin: 07/23/18 10:34 Dose: 100 mg Tiotropium [place] (Spiriva) 18 mcg INH DAILY [facility] Last Admin: 07/23/18 10:34 Dose: 18 mcg Vitamin B Complex/Vit C/Folic Acid (Nephro-Donnie) 1 tab PO 0800 [facility] Discontinued Medications Albuterol (Ventolin Hfa 90 Mcg/Actuation (8 G)) 2 puff IH Q4H PRN PRN Reason: Shortness of Breath Hydromorphone HCl (Dilaudid) 0.5 mg IVP Q6H PRN PRN Reason: Pain, moderate (4-7) Last Admin: 07/23/18 12:11 Dose: 0.5 mg [facility] Pain Assessment Document 07/23/18 12:11 SD (Rec: 07/23/18 12:11 SD [facility] [id number]) Pain Reassessment Is this a pain reassessment? No Sleep Is patient sleeping during reassessment? No Presence of Pain Presence of Pain Yes Pain Scale Used Pain Scale Used Numeric Location Left, Right or Bilateral Left Pain Location Body Site Leg Description Description Constant Intensity of Pain at present 7 Pain Behavior Facial Grimacing IVP Administration Document 07/23/18 12:11 SD (Rec: 07/23/18 12:11 SD [facility] [id number]) Charges for Administration # of IVP Administrations 1 Re-Assess: [facility] Pain Assessment Document 07/23/18 13:11 SD (Rec: 07/23/18 13:43 SD [id number]) Pain Reassessment Is this a pain reassessment? Yes Sleep Is patient sleeping during reassessment? Yes Ibuprofen (Motrin Tab) 400 mg PO ONCE ONE Stop: 07/23/18 05:03 Last Admin: 07/23/18 05:23 Dose: 400 mg [facility] Pain/Vitals Document 07/23/18 05:23 JOL (Rec: 07/23/18 05:27 JOL [facility] [id number] Pain Reassessment Is This A Pain ReAssessment? No Sleep Is patient sleeping during reassessment? No Presence of Pain Presence of Pain Yes Pain Scale Used Pain Scale Used Numeric Location Left, Right or Bilateral Left Pain Location Body Site Hip Pain Behavior Guarding Restlessness Facial Grimacing Aggravating Factors ADL's Changing Position Methylprednisolone (Solu-Medrol) 100 mg IVP ONCE ONE Stop: 07/23/18 15:55 Morphine Sulfate (Morphine) 4 mg IV STAT STA Stop: 07/23/18 07:20 Last Admin: 07/23/18 07:39 Dose: 4 mg eMAR Start Stop Document 07/23/18 07:39 SRE (Rec: 07/23/18 07:40 SRE [id number]) Intravenous Solution Start Date 07/23/18 Start Time 07:40 End Date 07/23/18 End time 07:41 Total Infusion Time 1 [facility] Pain Assessment Document 07/23/18 07:39 SRE (Rec: 07/23/18 07:40 SRE [id number]) Pain Reassessment Is this a pain reassessment? Yes Sleep Is patient sleeping during reassessment? No Presence of Pain Presence of Pain Yes Pain Scale Used Pain Scale Used Numeric Location Left, Right or Bilateral Left Pain Location Body Site Hip Description Description Constant Intensity of Pain at present 10 Non-Formulary Medication (Ranitidine Hcl [Zantac]) 150 mg PO BID MARISA <Reginaldo Chávez - Last Filed: 07/23/18 06:49> - PA / [employer]OX [employer] / Resident Statement MD/DO has reviewed & agrees with the documentation as recorded. MD/DO has examined the patient and agrees with the treatment plan. - Scribe Statement The provider has reviewed the documentation as recorded by the Scribe <Daniela Castillo - Last Filed: 07/23/18 19:23> - Scribe Statement Esthela Katz Provider Scribe Attestation: All medical record entries made by the Scribe were at my direction and personally dictated by me. I have reviewed the chart and agree that the record accurately reflects my personal performance of the history, physical exam, medical decision making, and the department course for this patient. I have also personally directed, reviewed, and agree with the discharge instructions and disposition. (Daniela Castillo) Disposition/Present on Arrival - Present on Arrival Any Indicators Present on Arrival: No History of DVT/PE: No History of Uncontrolled Diabetes: No Urinary Catheter: No History of Decub. Ulcer: No History Surgical Site Infection Following: None - Disposition Have Diagnosis and Disposition been Completed?: Yes Disposition Time: 06:49 <Reginaldo Chávez - Last Filed: 07/23/18 06:49> <Daniela Castillo - Last Filed: 07/23/18 19:23> - Disposition Diagnosis: Closed left hip fracture Disposition: HOSPITALIZED Patient Problems: Current Active Problems Problem Status Onset Closed left hip fracture Acute Condition: STABLE
[2018-07-23 05:08] LABS: BASO # 0.06 K/mm3 (0.0-2.0); BASO % 0.5 % (0.0-3.0); GRAN # 10.08 (1.4-6.5); GRAN % 79.3 % (50.0-68.0); HEMOGLOBIN 13.8 g/dL (14.0-18.0); LYMPH # 1.2 (1.2-3.4); MEAN CELL VOLUME 96.1 fl (80.0-105.0); MEAN CORPUSCULAR HEMOGLOBIN 33.7 pg (25.0-35.0); MEAN PLATELET VOLUME 9.2 fl (7.0-11.0); MONO # 1.4 (0.1-0.6); MONO % 11.2 % (1.0-6.0); RBC 4.1 10^6/uL (3.5-6.1); RED CELL DISTRIBUTION WIDTH 13.6 % (11.5-14.5); WHITE BLOOD COUNT 12.7 10^3/ul (4.5-11.0)
[2018-07-23 05:22] LABS: ALB/GLOB RATIO 1.6 (1.1-1.8); ALBUMIN 4.5 g/dL (3.0-4.8); ALT/SGPT 66 U/L (7-56); AST/SGOT 123 U/L (17-59); BLOOD UREA NITROGEN 11 mg/dL (7-21); CALCIUM 8.4 mg/dL (8.4-10.5); GFR NON-AFRICAN AMERICAN > 60
[2018-07-23 05:29] LABS: INR 0.95; PARTIAL THROMBOPLASTIN TIME 27.7 Seconds (25.1-36.5); PROTHROMBIN TIME 10.8 SECONDS (9.4-12.5)
[2018-07-23] MEDS ORDERED: Morphine 5 MG/ML SYRINGE IVP STA (07:16)
[2018-07-23] MEDS ORDERED: Albuterol HFA 90 mcg/actuation (8 g) IH PRN (08:54)
--- NOTE | 2018-07-23 09:06 | ED PDOC ---
Physical Exam - Physical Exam Narrative Physical Exam (Text): 63 year old M signed out to me at change of shift pending Hip XR. Hip XR positive for L hip fracture. Dr. Banks accepts to her service. Dr. Kim consulted. Vital Signs Temp Pulse Resp BP Pulse Ox 07/23/18 08:25 106 H 22 142/99 H 97 07/23/18 06:06 86 16 136/82 95 07/23/18 04:16 97.9 F 93 H 21 122/64 98 Medical Decision Making - Lab Interpretations Lab Results: 07/23/18 04:35 07/23/18 04:35 Lab Results 07/23/18 04:35: Sodium 135, Potassium 4.0, Chloride 97 L, Carbon Dioxide 19 L, Anion Gap 23 H, BUN 11, Creatinine 0.5 L, Est GFR ( Amer) > 60, Est GFR ( Non-Af Amer) > 60, Random Glucose 58 L, Calcium 8.4, Total Bilirubin 1.3, AST 123 H D, ALT 66 H, Alkaline Phosphatase 136 H D, Total Protein 7.4, Albumin 4.5 , Globulin 2.8, Albumin/Globulin Ratio 1.6 07/23/18 04:35: PT 10.8, INR 0.95, APTT 27.7 07/23/18 04:35: WBC 12.7 H D, RBC 4.10, Hgb 13.8 L D, Hct 39.4 L, MCV 96.1, MCH 33.7, MCHC 35.0, RDW 13.6, Plt Count 294, MPV 9.2, Gran % 79.3 H, Lymph % (Auto ) 9.0 L, [place] % (Auto) 11.2 H, Eos % (Auto) 0.0 L, Baso % (Auto) 0.5, Gran # 10.08 H, Lymph # (Auto) 1.2, [place] # (Auto) 1.4 H, Eos # (Auto) 0.0, Baso # (Auto ) 0.06 - RAD Interpretation Radiology Orders: 07/23/18 04:59 Hip Bi with Pelvis Fall Protocol [HIP MIN 2V W/ PELVIS JOSH] [RAD] Stat 07/23/18 08:04 RIBS LEFT & PA CHEST [RAD] Stat - Medication Orders Current Medication Orders: Albuterol (Ventolin Hfa 90 Mcg/Actuation (8 G)) 2 puff IH Q4H PRN PRN Reason: Shortness of Breath Clonazepam (Klonopin) 1 mg PO QID MARISA PRN Reason: Protocol Folic Acid (Folic Acid) 1 mg PO DAILY [facility] Metoprolol Succinate (Toprol Xl) 25 mg PO DAILY [facility] Montelukast Sodium (Singulair) 10 mg PO HS MARISA Non-Formulary Medication (Budesonide/Formoterol Fumarate [Symbicort 160-4.5 Mcg Inhaler]) 2 aer IH Q12 MARISA Non-Formulary Medication (Lidocaine [Lidocaine]) 50 gm TP BID [facility] Non-Formulary Medication (Ranitidine Hcl [Zantac]) 150 mg PO BID [facility] Pregabalin (Lyrica) 25 mg PO TID [facility] Thiamine HCl (Vitamin B1 Tab) 100 mg PO DAILY [facility] Tiotropium [place] (Spiriva) 18 mcg INH DAILY [facility] Vitamin B Complex/Vit C/Folic Acid (Nephro-Donnie) 1 tab PO 0800 [facility] Discontinued Medications Ibuprofen (Motrin Tab) 400 mg PO ONCE ONE Stop: 07/23/18 05:03 Last Admin: 07/23/18 05:23 Dose: 400 mg [facility] Pain/Vitals Document 07/23/18 05:23 JOL (Rec: 07/23/18 05:27 [id number] Pain Reassessment Is This A Pain ReAssessment? No Sleep Is patient sleeping during reassessment? No Presence of Pain Presence of Pain Yes Pain Scale Used Pain Scale Used Numeric Location Left, Right or Bilateral Left Pain Location Body Site Hip Pain Behavior Guarding Restlessness Facial Grimacing Aggravating Factors ADL's Changing Position Morphine Sulfate (Morphine) 4 mg IV STAT STA Stop: 07/23/18 07:20 Last Admin: 07/23/18 07:39 Dose: 4 mg eMAR Start Stop Document 07/23/18 07:39 SRE (Rec: 07/23/18 07:40 SRE [id number]) Intravenous Solution Start Date 07/23/18 Start Time 07:40 End Date 07/23/18 End time 07:41 Total Infusion Time 1 JAN Pain Assessment Document 07/23/18 07:39 SRE (Rec: 07/23/18 07:40 SRE [id number]) Pain Reassessment Is this a pain reassessment? Yes Sleep Is patient sleeping during reassessment? No Presence of Pain Presence of Pain Yes Pain Scale Used Pain Scale Used Numeric Location Left, Right or Bilateral Left Pain Location Body Site Hip Description Description Constant Intensity of Pain at present 10 Disposition/Present on Arrival - Present on Arrival Any Indicators Present on Arrival: No History of DVT/PE: No History of Uncontrolled Diabetes: No Urinary Catheter: No History of Decub. Ulcer: No History Surgical Site Infection Following: None - Disposition Have Diagnosis and Disposition been Completed?: Yes Diagnosis: Closed left hip fracture Disposition: HOSPITALIZED Disposition Time: 08:10 Patient Plan: Admission Patient Problems: Current Active Problems Problem Status Onset Left hip pain Acute Condition: STABLE
[2018-07-23] MEDS ORDERED: Albuterol 0.083% Inhal Sol (2.5 mg/3 mL) UD IH PRN (09:07)
[2018-07-23] MEDS ORDERED: Non Formulary Medication (Budesonide/Formoterol Fumarate [Symbicort 160-4.5 Mcg Inhaler] 2 IH SCH (10:00)
[2018-07-23] MEDS ORDERED: Non Formulary Medication (Ranitidine Hcl [Zantac] 150 MG) PO SCH (10:00)
[2018-07-23] MEDS ORDERED: LIDOCAINE TP SCH (10:00)
[2018-07-23] MEDS: Metoprolol Succinate 25 mg XL Tab PO SCH (10:24)
[2018-07-23] MEDS: Non Formulary Medication (Budesonide/Formoterol Fumarate [Symbicort 160-4.5 Mcg Inhaler] 2 IH SCH (10:25)
[2018-07-23] MEDS: Tiotropium 18 mcg Cap For Inhalation INH SCH (10:34)
[2018-07-23] MEDS ORDERED: HYDROmorphone 0.5 mg/0.5 ml ISec IVP PRN (11:24)
--- NOTE | 2018-07-23 11:51 | RAD ---
Date of service: 07/23/2018 PROCEDURE: Radiographs of the Chest and Left Ribs. HISTORY: hip fracture COMPARISON: Chest x-ray performed 05/02/18. TECHNIQUE: Frontal radiograph of the chest and multiple oblique radiographs of the left ribs were obtained. FINDINGS: LEFT RIBS: Left lateral displaced 8th rib fracture deformity. Numerous additional chronic appearing left-sided rib fracture deformities. LUNGS: No focal consolidation. Please note that chest x-ray has limited sensitivity for the detection of pulmonary masses. PLEURA: No significant pleural effusion. No definite pneumothorax. CARDIOVASCULAR: Heart size appears within normal limits. OTHER FINDINGS: Deformity of the right humeral head/neck. IMPRESSION: Left lateral displaced 8th rib fracture deformity. Numerous additional chronic appearing left-sided rib fracture deformities. Chronic appearing of the right humeral head/neck ; correlate clinically in order to exclude point tenderness.
--- NOTE | 2018-07-23 11:56 | RAD ---
Date of service: 07/23/18 Indication: Status post fall Bilateral hip with pelvis Comparison: CT abdomen pelvis with contrast performed 03/27/18 Findings: Displaced left femoral neck fracture. Marked soft tissue swelling. The hip joints appear located. No evidence of radiopaque foreign body. Degenerative changes. Osseous demineralization limits evaluation for acute fracture lines. Impression: Soft tissue swelling. Displaced left femoral neck fracture.
[2018-07-23] MEDS: Folic Acid 1 MG, Thiamine 100 MG, Multivitamin (MVI) 10 ML in Dextrose 5% In Water 1,00... IV SCH ×2 (12:14→21:23)
[2018-07-23 12:41] VITALS: BMI 25.8
[2018-07-23] MEDS: HYDROmorphone 0.5 mg/0.5 ml ISec IVP PRN ×2 (16:47→20:43)
[2018-07-23] MEDS: Oxycodone/Acetaminophen 5/325 mg Tab PO PRN ×2 (17:55→23:50)
[2018-07-23] MEDS: Budesonide 0.25 mg/2 ml Inhal Susp UD IH SCH (20:15)
[2018-07-23] MEDS: Acetylcysteine 20% Inhal Soln (4ml) IH SCH (20:15)
[2018-07-23] MEDS: Arformoterol 15 mcg/2 ml Inh Sol IH SCH (20:15)
[2018-07-24] MEDS: HYDROmorphone 0.5 mg/0.5 ml ISec IVP PRN ×4 (01:00→13:03)
--- NOTE | 2018-07-24 02:49 | CON ---
Copied To: Nancy Lr MD Attending MD: Nancy Lr MD DATE: 07/23/2018 PULMONARY CONSULT REFERRING PHYSICIAN: Susanne Banks MD. REASON FOR CONSULT: Status post fall, hip fracture, history of chronic obstructive lung disease, obstructive sleep apnea syndrome. HISTORY OF PRESENT ILLNESS: This is a 73-year-old gentleman, well known to me from office and previous admission. Past medical history is significant for chronic obstructive lung disease, anxiety disorder, benzodiazepine dependent, history of excessive alcohol use. Apparently, the patient had been drinking night before. When he woke up middle of the night, according to him, his carpet slipped, fell. In the emergency room, whether found to have a left hip fracture. Presently lying in the bed, complaining of hip pain. Short of breath with exertion, but no chest pain. No nausea. No vomiting. No diarrhea. PAST MEDICAL HISTORY: Significant for chronic obstructive lung disease, anxiety disorder, renal insufficiency. FAMILY HISTORY: No significant cardiopulmonary disease reported. SOCIAL HISTORY: Disabled. Recently stopped smoking. Still actively drink alcohol. ALLERGIES: NONE KNOWN. MEDICATIONS: He is on Mucomyst added every 12 hours, also albuterol/Atrovent nebulizer every 6 hours p.r.n., Brovana inhaled twice a day, Dilaudid 0.5 mg every 4 hours p.r.n., folic acid 1 mg daily, also getting banana bag 100 mL/hour, Klonopin 1 mg four times a day, Librium 25 mg every 6 hours, Lidoderm patch to affected area, Lyrica 25 mg three times a day, Nephro vitamins daily, Pepcid 20 mg twice a day, Percocet 5/325 one tab every 6 hours p.r.n. for pain, prednisone 10 mg daily, Pulmicort inhaled twice a day, Singulair 10 mg daily, Spiriva inhaled daily, Toprol-XL 25 mg daily, vitamin B1 at 100 mg daily. REVIEW OF SYSTEMS: No headache. No rhinitis. Does have cough, shortness of breath. No chest pain. No nausea. No vomiting. No diarrhea. No abdominal pain. Has a left hip pain. No leg swelling. PHYSICAL EXAMINATION: GENERAL: Lying in the bed, [id number] distress. VITAL SIGNS: Temp is 98, heart rate is 80, respiratory rate is 18, blood pressure 159/76, pulse ox 98% on 2 L nasal cannula. HEENT: Moist mucous membrane. No ulcer or thrush noted. NECK: Supple. No JVD. LUNGS: Have a prolonged expiratory phase with wheezing. HEART: S1 and S2. ABDOMEN: Soft, nontender, nondistended. EXTREMITIES: Left hip has tenderness. Lower extremities: No edema. NEUROLOGICAL: Awake and alert. Follows simple command. LABORATORY DATA: Shows hemoglobin 13.8, hematocrit 39.4, WBC 12.7, platelet is 294. INR 0.95, PTT 28. Sodium 135, potassium 4, chloride 97, bicarbonate 19, BUN 11, creatinine 0.5, glucose 58, calcium 8.4, total bili 1.3, AST 123, ALT 66, alk phos is 136, albumin is 4.5. Toxicology: Alcohol level is 84. Hip and pelvic x-ray shows soft tissue swelling, displaced left femoral neck fracture. Also has right rib x-rays done, which shows no focal consolidation. IMPRESSION AND PLAN: Status post fall with a hip fracture, alcohol abuse, anxiety disorder, benzodiazepine dependent, history of multiple rib fracture in the past. I had a long discussion with the patient about his fall incidents. He expressed understanding that he will stop drinking like other times. Spoke to nursing staff. Pain medication increased. Continue nebulizer treatment. Gastric prophylaxis, deep venous thrombosis prophylaxis. Continue banana bag covering thiamine and multivitamins. Pulmonary status is optimized for possible surgery. Thank you and we will follow with you. Nancy Lr MD
--- NOTE | 2018-07-24 05:31 | CARD ---
APPROVED REPORT Date of service: 07/23/2018 EKG Measurement Heart [id number] <Conclusion> Sinus tachycardia with occasional premature ventricular complexes Left axis deviation Abnormal ECG
[2018-07-24 07:21] LABS: HEMOGLOBIN 13.3 g/dL (14.0-18.0); MEAN CELL VOLUME 96.3 fl (80.0-105.0); MEAN CORPUSCULAR HEMOGLOBIN 32.8 pg (25.0-35.0); MEAN CORPUSCULAR HGB CONC 34.1 g/dl (31.0-37.0); MEAN PLATELET VOLUME 9.6 fl (7.0-11.0); RBC 4.05 10^6/uL (3.5-6.1); RED CELL DISTRIBUTION WIDTH 13.4 % (11.5-14.5); WHITE BLOOD COUNT 9.3 10^3/ul (4.5-11.0)
[2018-07-24 07:42] LABS: IRON 87 ug/dL (45-180)
[2018-07-24 07:43] LABS: ALB/GLOB RATIO 1.4 (1.1-1.8); ALBUMIN 3.8 g/dL (3.0-4.8); ALT/SGPT 46 U/L (7-56); AST/SGOT 62 U/L (17-59); BLOOD UREA NITROGEN 5 mg/dL (7-21); CALCIUM 8.7 mg/dL (8.4-10.5); GFR NON-AFRICAN AMERICAN > 60; HDL CHOLESTEROL 104 mg/dL (29-60)
[2018-07-24] MEDS: Folic Acid 1 MG, Thiamine 100 MG, Multivitamin (MVI) 10 ML in Dextrose 5% In Water 1,00... IV SCH (07:47)
[2018-07-24] MEDS: Acetylcysteine 20% Inhal Soln (4ml) IH SCH ×2 (07:47→20:18)
[2018-07-24] MEDS: Budesonide 0.25 mg/2 ml Inhal Susp UD IH SCH ×2 (07:47→20:18)
[2018-07-24] MEDS: Arformoterol 15 mcg/2 ml Inh Sol IH SCH ×2 (07:47→20:18)
[2018-07-24 07:50] LABS: LDL CHOLESTEROL 63 mg/dL (0-129)
[2018-07-24 07:51] LABS: % IRON SATURATION 32 % (20-55); TOTAL IRON BINDING CAPACITY 274 ug/dL (261-462)
[2018-07-24] MEDS: Lidocaine 5% Patch TD SCH (09:15)
[2018-07-24] MEDS: Tiotropium 18 mcg Cap For Inhalation INH SCH (09:16)
[2018-07-24] MEDS: Metoprolol Succinate 25 mg XL Tab PO SCH (09:16)
[2018-07-24] MEDS: Non Formulary Medication (Budesonide/Formoterol Fumarate [Symbicort 160-4.5 Mcg Inhaler] 2 IH SCH (09:16)
[2018-07-24] MEDS: Multivitamin Vitamin B Complex (Nephro-Vite) Tab PO SCH (09:17)
[2018-07-24] MEDS: Enoxaparin 40 mg Syringe SC SCH (09:19)
[2018-07-24] MEDS ORDERED: Sodium Phosphate 15 MMOLE in Sodium Chloride 0.9% 250 ML IVPB ONE (09:38)
[2018-07-24 12:06] LABS: FOLATE > 20.0 ng/mL
--- NOTE | 2018-07-24 12:19 | RAD ---
Date of service: 07/24/2018 PROCEDURE: AP pelvis and oblique view of the right hip HISTORY: PRE OP COMPARISON: Comparison is made to the previous study dated 07/23/2018 TECHNIQUE: AP view of the pelvis. Oblique view of the right hip. FINDINGS: Again noted is acute displaced left femoral neck fracture. No evidence of acute fracture or dislocation of the right hip. No evidence of other acute pathology in the pelvis. IMPRESSION: No evidence of acute right hip fracture. Displaced left femoral neck fracture.
[2018-07-24] MEDS: HYDROmorphone 1 mg/ml ISec IVP PRN ×2 (15:29→19:50)
[2018-07-24] MEDS: Oxycodone/Acetaminophen 5/325 mg Tab PO PRN (17:29)
--- NOTE | 2018-07-24 20:44 | CON ---
Copied To: Nancy Juárez MD Attending MD: Nancy Juárez MD DATE: 07/23/2018 REASON FOR CONSULTATION: Preop evaluation, risk stratification for left hip surgery, history of COPD. BRIEF CLINICAL HISTORY: This is a 63-year-old male with past medical history significant for alcohol abuse, benzodiazepine, anxiety disorder, history of COPD, who was apparently drinking alcohol and woke up in the middle of the night to go to the bathroom. Says that he has a hard wood floor and on the top of that he has a carpet, so carpet slipped and he fell down sustained a fracture of the hip requiring OR and internal fixation for left hip fracture. The patient denies any chest pain. Denies any palpitation. Though, the patient has underlying COPD and shortness of breath and has underlying anxiety disorder. PAST MEDICAL HISTORY: Significant for COPD, anxiety disorder, benzodiazepine. SOCIAL HISTORY: Quit smoking many years ago, but apparently still drinking and drinks 4-6 cans of beer every now and then. Admitting blood alcohol level was 84 as mentioned, though the patient claimed 4-6 cans of beer, but sometime it is 12 cans of beer on the last admission he mentioned plus hard liquor as well and sometimes he drinks 6 cans of beer everyday. Claimed that he slowed down recently. Heavy smoker in the past. Quit more than 30 years ago. PREVIOUS CARDIAC WORKUP: As follows, the patient had a stress test dated 05/04/2018 when admitted with atypical chest pain, underwent a stress test that shows abnormal myocardial perfusion study, fixed defect anterior and most likely secondary to , no reversible ischemia. The patient had echocardiography on 03/29/2018 that showed normal LV function, atrial septal aneurysm, RV systolic pressure 23 and calculated ejection fraction 50%, low normal. CURRENT MEDICATIONS: The patient at home is taking multivitamin, aspirin, Xanax, Symbicort, albuterol, tramadol, vitamin B complex, Klonopin, metoprolol XL 25 mg daily, meloxicam, lidocaine, azithromycin in the last time admission as well as thiamine. REVIEW OF THE SYSTEMS: As per HPI. PHYSICAL EXAMINATION: VITAL SIGNS: Height of the patient 5 feet 10 inches, weight of the patient 180 pounds. Body mass index 25.8 kg/m2. Temperature afebrile, heart rate 83, blood pressure 109/88. HEENT: PERRLA. Extraocular muscles intact. NECK: Supple. No carotid bruits or thyromegaly. CHEST: Clear to auscultation. HEART: S1 and S2 regular. ABDOMEN: Soft. EXTREMITIES: Clubbing and cyanosis negative. LABORATORY DATA: Blood workup: WBC 9.3, hemoglobin 13, hematocrit 39, platelet count 214. Chemistry shows sodium 129, potassium 4, chloride 95, carbon dioxide 28, anion gap of 11, BUN 5, creatinine 0.4, total bilirubin 1.8, AST 62, ALT 46, LDL 63, HDL 104, TSH 1.54. EKG showed sinus tachycardia. IMPRESSION: A 63-year-old male with past medical history of ex-tobacco abuse, history of chronic obstructive pulmonary disease, history of anxiety disorder, who fell down, sustained left hip fracture, history of heavy alcohol abuse. Admitting blood alcohol level was 84, who admitted after a fall and sustained a hip fracture requiring open reduction and internal fixation and requiring preoperative clearance. The patient had recently workup that was essentially negative, low normal ejection fraction, most likely secondary to alcohol abuse, but a stress test dated 04/2018, essentially normal myocardial perfusion, no reversible ischemia, 05/04/2018. Ejection fraction 41%. By echocardiogram, ejection fraction 50%. No significant valvular heart disease. In view of the above, no absolute contraindication for surgery. No evidence of arrhythmia. No evidence of congestive heart failure. No anginal symptoms. We will clear the patient as moderate risk of underlying comorbidity. Continue perioperative beta-larry. We will follow with you. Now, the patient is on banana bag infusion because of acute alcohol intoxication. Monitor electrolytes. We will get mag, phosphorus level in the morning as well. We will supplement phosphate. We will give one dose of beta-larry p.o. with a little sip of water and cleared for the surgery. Thank you, Dr. Banks, for providing us the opportunity in taking care of the patient, Kody Schultz. Nancy Juárez MD
[2018-07-24] MEDS: Sodium Chloride 0.9% 1,000 ML IV SCH (22:50)
--- NOTE | 2018-07-24 22:59 | PN ---
Copied To: Nancy Lr MD Attending MD: Nancy Lr MD DATE: 07/24/2018 PULMONARY PROGRESS NOTE REFERRING PHYSICIAN: Dr. Banks. SUBJECTIVE: He is lying in the bed, head at 45 degrees. Apparently, hip surgery is not done yet. No headache, no rhinitis. No nausea, no vomiting, diarrhea. Has a left hip pain. OBJECTIVE: GENERAL: In no acute distress. VITAL SIGNS: Temperature is 98, heart rate is 101, respiratory rate is 18, blood pressure 136/86, pulse ox 96% on 2 liters cannula. HEENT: Moist mucous membrane. Crowded airway. NECK: Supple. No JVD. LUNGS: Have fair airflow with rhonchi. HEART: S1 and S2. ABDOMEN: Soft, nontender, no organomegaly. EXTREMITIES: Left hip tenderness. No edema. NEUROLOGIC: Awake, alert and follows simple commands. MEDICATIONS: He is on Mucomyst 20% inhaled twice a day, albuterol/Atrovent nebulizer every 6 hours p.r.n., Ativan 0.5 mg every 6 hours p.r.n. for anxiety, Brovana inhaled twice a day, Dilaudid increased 1 mg every 4 hours p.r.n., folic acid 1 mg daily, Klonopin 1 mg four times a day, Lidoderm patch at affected area, Lovenox 40 mg daily, Lyrica 25 mg three times a day, Nephro vitamins daily, Pepcid 20 mg twice a day, Percocet 5/325 one tablet every 6 hours p.r.n., prednisone 10 mg daily, Pulmicort inhaled twice a day, Singulair 10 mg daily, Spiriva inhaled daily, multivitamins daily, Toprol XL 25 mg daily, vitamin B1 100 mg daily. LABORATORY DATA: Shows hemoglobin 13.3, hematocrit 39, WBC 9.3, platelet count is 214. Sodium 129, potassium 4, chloride 95, bicarbonate 28, BUN 5, creatinine 0.4. Glucose 148, hemoglobin A1c 4.7, calcium 8.7, phosphorus 1.6, magnesium 2.1. Iron 87, AST 62, ALT 46, alk phos is 103. Albumin is 3.8. Triglycerides 75. Cholesterol 104. Vitamin B12 is 383. Folate more than 20. TSH 1.52. He has a repeat x-ray of the hip and pelvis done today on the right side, which shows no evidence of acute right hip fracture, displaced left femoral neck fracture though. IMPRESSION AND PLAN: Status post fall with left hip fracture, history of alcohol abuse, anxiety disorder, benzodiazepine dependent, history of multiple rib fracture, hyponatremia, chronic obstructive lung disease. Case discussed with Dr. Banks. Also spoke to nursing staff and suggested to DC his banana bag, which has D5 water. Started on folic acid and thiamine with p.r.n. Ativan. Pain medication increased because of severe hip discomfort. Continue bronchodilator. The patient is discouraged to drink free water. Gastric prophylaxis, deep vein thrombosis prophylaxis. Follow up labs in the morning. Pulmonary status optimized for surgery. Thank you and we will follow with you. Nancy Lr MD
[2018-07-25] MEDS: HYDROmorphone 0.5 mg/0.5 ml ISec IVP PRN ×3 (06:13→18:12)
--- NOTE | 2018-07-25 06:38 | CP.PCM.PN ---
Subjective - Date & Time of Evaluation Date of Evaluation: 07/25/18 Time of Evaluation: 06:05 - Subjective Subjective: Awake, alert,going for surgery today, complaining of left hip pain Reason for consultation and follow up: Cardiac evaluation and clearance for pre- op left hip surgery, post fall, history of COPD, alcohol abuse,ex-smoker. Seen and examined by me and Objective - Vital Signs/Intake and Output Vital Signs (last 24 hours): Temp Pulse Resp BP Pulse Ox 97.6 F 86 20 142/89 96 07/24/18 21:45 07/24/18 21:45 07/24/18 21:45 07/24/18 21:45 07/24/18 21:45 Intake and Output: 07/24/18 07/25/18 18:59 06:59 Intake Total 1520 Output Total 300 725 Balance -300 795 - Medications Medications: Current Medications Acetylcysteine (Acetylcysteine 20%) 4 ml IH [id number] [facility] Last Admin: 07/24/18 20:18 Dose: 4 ml Albuterol Sulfate (Albuterol 0.083% Inhal Radha (2.5 Mg/3 Ml) Ud) 2.5 mg IH [id number] PRN PRN Reason: Cough and congestion Last Admin: 07/23/18 11:22 Dose: 2.5 mg Arformoterol Tartrate (Brovana) 15 mcg IH [id number] [facility] Last Admin: 07/24/18 20:18 Dose: 15 mcg Budesonide (Pulmicort Respules) 0.25 mg IH [id number] [facility] Last Admin: 07/24/18 20:18 Dose: 0.25 mg Clonazepam (Klonopin) 1 mg PO QID [facility] PRN Reason: Protocol Last Admin: 07/24/18 21:04 Dose: 1 mg Enoxaparin Sodium (Lovenox) 40 mg SC DAILY [facility] PRN Reason: Protocol Last Admin: 07/24/18 09:19 Dose: Not Given Famotidine (Pepcid) 20 mg PO BID [facility] Last Admin: 07/24/18 17:23 Dose: 20 mg Folic Acid (Folic Acid) 1 mg PO DAILY [facility] Last Admin: 07/24/18 09:16 Dose: Not Given Hydromorphone HCl (Dilaudid) 0.5 mg IVP Q6H PRN PRN Reason: Pain, severe (8-10) Last Admin: 07/25/18 06:13 Dose: 0.5 mg Sodium Chloride (Sodium Chloride 0.9%) 1,000 mls @ 100 mls/hr IV .Q10H [facility] Last Admin: 07/24/18 22:50 Dose: 100 mls/hr Lidocaine (Lidoderm) 1 ea TD DAILY [facility] Last Admin: 07/24/18 09:15 Dose: 1 ea Lorazepam (Ativan) 0.5 mg IVP Q4H PRN; Protocol PRN Reason: Anxiety Last Admin: 07/25/18 03:42 Dose: 0.5 mg Metoprolol Succinate (Toprol Xl) 25 mg PO DAILY [facility] Last Admin: 07/24/18 09:16 Dose: 25 mg Montelukast Sodium (Singulair) 10 mg PO HS [facility] Last Admin: 07/24/18 21:04 Dose: 10 mg Multivitamins/Minerals (Therapeutic-M Tab) 1 tab PO 1000 [facility] Non-Formulary Medication (Budesonide/Formoterol Fumarate [Symbicort 160-4.5 Mcg Inhaler]) 2 aer IH Q12 [facility] Last Admin: 07/24/18 09:16 Dose: Not Given Oxycodone/Acetaminophen (Percocet 5/325 Mg Tab) 1 tab PO Q6H PRN PRN Reason: Pain, moderate (4-7) Stop: 07/26/18 16:03 Last Admin: 07/24/18 17:29 Dose: 1 tab Prednisone (Prednisone Tab) 10 mg PO DAILY [facility] Last Admin: 07/24/18 13:04 Dose: 10 mg Pregabalin (Lyrica) 25 mg PO TID [facility] Last Admin: 07/24/18 17:23 Dose: 25 mg Thiamine HCl (Vitamin B1 Tab) 100 mg PO DAILY [facility] Last Admin: 07/24/18 09:17 Dose: Not Given Tiotropium [place] (Spiriva) 18 mcg INH DAILY [facility] Last Admin: 07/24/18 09:16 Dose: 18 mcg Vitamin B Complex/Vit C/Folic Acid (Nephro-Donnie) 1 tab PO 0800 [facility] Last Admin: 07/24/18 09:17 Dose: Not Given - Labs Labs: 07/24/18 06:30 07/24/18 06:30 PT 10.8 SECONDS (9.4-12.5) 07/23/18 04:35 INR 0.95 07/23/18 04:35 APTT 27.7 Seconds (25.1-36.5) 07/23/18 04:35 - Constitutional Appears: No Acute Distress - Eye Exam Eye Exam: Normal appearance - ENT Exam ENT Exam: Mucous Membranes Moist - Respiratory Exam Respiratory Exam: Clear to Ausculation Bilateral, NORMAL BREATHING PATTERN - Cardiovascular Exam Cardiovascular Exam: +S1, +S2 - GI/Abdominal Exam GI & Abdominal Exam: Soft, Normal Bowel Sounds - Extremities Exam Additional comments: left hip pain - Neurological Exam Neurological Exam: Alert, Awake, Oriented x3 - Psychiatric Exam Psychiatric exam: Anxious - Skin Skin Exam: Dry, Warm Assessment and Plan - Assessment and Plan (Free Text) Assessment: A 63 year old male who came in to the ER due to left hip pain post fall. history of COPD, alcohol abuse, ex-smoker,anxiety. Consult was called to evaluate and cardiac clearance for surgery. Patient denies any chest pain. ECHO showed normal LV function, atrial septal aneurysm,LVEF 50%. 04/2018 Normal stress test.no evidence of ischemia or heart failure. Will clear patient for surgery, moderate risk cobsidering co-morbidities. For left hip surgery today. Plan: For left hip surgery today Complaining of left hip pain, PRN pain medicine given by business services intern rate and blood pressure controlled Cardiac status stable Continue current medications Continue current treatment Will follow postoperatively Plan and treatment discussed with Dr. Juárez
[2018-07-25] MEDS: Multivitamin Vitamin B Complex (Nephro-Vite) Tab PO SCH (07:32)
[2018-07-25] MEDS: Budesonide 0.25 mg/2 ml Inhal Susp UD IH SCH ×2 (07:39→19:41)
[2018-07-25] MEDS: Acetylcysteine 20% Inhal Soln (4ml) IH SCH ×2 (07:39→19:41)
[2018-07-25] MEDS: Arformoterol 15 mcg/2 ml Inh Sol IH SCH ×2 (07:39→19:41)
[2018-07-25 07:49] LABS: BASO # 0.05 K/mm3 (0.0-2.0); BASO % 0.6 % (0.0-3.0); EOS # 0.1 (0.0-0.7); EOS % 1.1 % (1.5-5.0); GRAN # 6.14 (1.4-6.5); GRAN % 69.6 % (50.0-68.0); HEMOGLOBIN 12.1 g/dL (14.0-18.0); LYMPH # 1.2 (1.2-3.4); LYMPH % 13.1 % (22.0-35.0); MEAN CELL VOLUME 97.5 fl (80.0-105.0); MEAN CORPUSCULAR HEMOGLOBIN 33.8 pg (25.0-35.0); MEAN CORPUSCULAR HGB CONC 34.7 g/dl (31.0-37.0); MEAN PLATELET VOLUME 9.6 fl (7.0-11.0); MONO # 1.4 (0.1-0.6); MONO % 15.6 % (1.0-6.0); RBC 3.58 10^6/uL (3.5-6.1); RED CELL DISTRIBUTION WIDTH 13.4 % (11.5-14.5); WHITE BLOOD COUNT 8.8 10^3/ul (4.5-11.0)
[2018-07-25 08:09] LABS: ALB/GLOB RATIO 1.2 (1.1-1.8); ALBUMIN 3.3 g/dL (3.0-4.8); ALT/SGPT 39 U/L (7-56); AST/SGOT 42 U/L (17-59); BLOOD UREA NITROGEN 8 mg/dL (7-21); CALCIUM 8.4 mg/dL (8.4-10.5); GFR NON-AFRICAN AMERICAN > 60
--- NOTE | 2018-07-25 08:26 | PN ---
Copied To: Susanne Banks MD Attending MD: Susanne Banks MD DATE: 07/24/2018 SUBJECTIVE: The patient is a 63-year-old male. The patient was seen and examined at the bedside, complaining about hip pain, supposed to go to the surgery, but due to some reason, the surgery was canceled. Hvac Mechanic is on the case for cardiac clearance and fur liner for pulmonary clearance because the patient has heavy smoking and has COPD. The patient do not have fevers. No nausea, vomiting, or diarrhea. No hematuria or hematochezia. No headache. No dizziness. No chest pain. No palpitations. PHYSICAL EXAMINATION: VITAL SIGNS: Temperature 98.6, heart rate 83, blood pressure 109/88, respiratory rate 20. HEENT: Head is normocephalic and atraumatic. Eyes: PERRLA. Extraocular muscles are intact. Conjunctivae are clear. Nose is patent. Mucous membranes are moist. NECK: Supple. No carotid bruit. No JVD or thyromegaly. CHEST: Clear to auscultation. ABDOMEN: Soft. Bowel sounds present. No organomegaly. EXTREMITIES: No edema. No cyanosis. NEUROLOGICAL: The patient is awake and alert. Moving all 4 extremities. No focal deficit. MEDICATIONS: Tylenol, albuterol, Ativan, Brovana, Dilaudid, folic acid, Klonopin, Lidoderm, Lovenox, Lyrica, Pepcid, vitamins, Robaxin, oxycodone, Singulair, Spiriva, LABORATORY DATA: White blood cells on the admission was 12.7, repeat is 9.3; hemoglobin 13.3; hematocrit 39; and platelets 214. Sodium 129, potassium 4, BUN 5, creatinine 0.4, and glucose 148. AST 62. ASSESSMENT AND PLAN: Mr. Schultz is a 63-year-old male with hyponatremia; hypochloremia; hyperglycemia; hypophosphatemia; abnormal liver function tests, trending down; history of leukocytosis, improved; anemia; history of ethanol abuse, alcohol level was 84; history of chronic obstructive lung disease; anxiety disorder; status post fall with hip fracture; benzodiazepine dependency. The patient's psychiatrist is Dr. Rose. History of multiple rib fractures in the past. Urged to quit drinking. The patient understands. Gastric and DVT prophylaxis. We will replete phosphorus and NS. Repeat labs. We will follow up. Susanne Banks MD NICCI
--- NOTE | 2018-07-25 08:56 | HP ---
date 07/23/18 Copied To: Susanne Banks MD Attending MD: Susanne Banks MD The patient is a 63-year-old male. CHIEF COMPLAINT: Fall, hip pain. HISTORY OF PRESENT ILLNESS: Mr. Kody Schultz is a 63-year-old male with past medical history of COPD, anxiety, alcohol abuse, came to the Emergency Department complaining of left hip pain. As before, the patient states that he slip on the rug at home and fell on his left hip. He denies hitting his head. Patient described the pain is as achy 8/10, radiates through the anterior thigh. Patient states he was drinking 4 to 6 beers before he fall. Patient is also complaining about shortness of breath that is baseline because of his COPD and asthma, known compliant with the inhalers. Denies headache, fever, chills. Complaining about her hips pain. PAST MEDICAL HISTORY: COPD, anxiety, alcohol abuse, history of chronic shaking, renal failure, bruises on knees and lower legs, left leg and bruised heel, pigmentation on the both upper extremities, anxiety, history of right shoulder fracture. FAMILY HISTORY: Father and mother, noncontributory. HABITS: Former smoker, quit. Alcohol yes, 4 to 5 drinks a day. ALLERGIES: PATIENT IS NOT ALLERGIC WITH ANY MEDICATIONS. HOME MEDICATIONS: Xanax from his psychiatrist Dr. Rose, ProAir, Mobic, Zantac, B1, multivitamins, Klonopin. REVIEW OF SYSTEMS: Patient was seen and examined at the bedside in the ER, complaining about hip pain, chest pain, sometimes shortness of breath. No abdominal pain. No constipation or diarrhea. No dysuria. No hematuria. No frequency. Complained of left hip pain. No rash or pruritus. No headache or dizziness. No anxiety or depression. PHYSICAL EXAMINATION: VITAL SIGNS: Temperature 97.9, pulse 93, respiratory rate 21, blood pressure 120/64, pulse oximetry 98%. HEENT: Head: Normocephalic, atraumatic. Eyes: PERRLA. Extraocular muscles are intact. Conjunctivae are clear. Nose patent. Mucous membranes are moist. NECK: Supple. No carotid bruits. No JVD or thyromegaly. CHEST: Bilaterally symmetrical. HEART: S1 and S2 positive. LUNGS: Clear to auscultation. ABDOMEN: Soft. Bowel sounds positive. No organomegaly. EXTREMITIES: No edema. No cyanosis. But left hip is tender, anterior thigh tender. Range of motion decreased. NEUROLOGIC: The patient is awake and alert. Follow simple commands. LABORATORY DATA: White blood cell 12.7, hemoglobin 13.8, hematocrit 39.4, platelet 294. Sodium 135, potassium 4, BUN 11, creatinine 0.5. Glucose is 58. ASSESSMENT AND PLAN: Mr. Kody Schultz is a 63-year-old male with leukocytosis, anemia, hyperchloremia, hypoglycemia, had fall, closed left hip fracture, history of chronic obstructive pulmonary disease, depression is under care of Dr. Cale Rose. Patient has history of renal failure, improved, multiple bruises on the body, anxiety, depression. Require a consult with Orthopedic. Chest x-ray, electrocardiogram, hip x-rays ordered, noted. Cardiology consult called with Dr. Smith for a cardiac reason and Dr. Lr for pulmonary reasons. Meanwhile continue intravenous treatment. Gastrointestinal and deep venous thrombosis prophylaxes. Repeat labs. We will follow up. Susanne Banks MD MTDNeyda
[2018-07-25] MEDS: Metoprolol Succinate 25 mg XL Tab PO SCH (09:12)
[2018-07-25] MEDS: Non Formulary Medication (Budesonide/Formoterol Fumarate [Symbicort 160-4.5 Mcg Inhaler] 2 IH SCH ×2 (09:12→23:04)
[2018-07-25] MEDS: Sodium Chloride 0.9% 1,000 ML IV SCH ×3 (09:13→18:31)
[2018-07-25] MEDS: Enoxaparin 40 mg Syringe SC SCH (09:13)
[2018-07-25] MEDS: Tiotropium 18 mcg Cap For Inhalation INH SCH (09:13)
[2018-07-25] MEDS: Multivitamin With Minerals Tab PO SCH ×2 (09:13→18:19)
[2018-07-25] MEDS: Lidocaine 5% Patch TD SCH (09:13)
--- NOTE | 2018-07-25 13:13 | CT ---
Date of service: 07/25/2018 PROCEDURE: CT left hip HISTORY: pre op COMPARISON: None TECHNIQUE: 2.5 mm contiguous axial sections were acquired through the left hip. Sagittal and coronal images were reformatted from the axial scan. Total exam DLP: 448.39 mGy-cm. This CT exam was performed using 1 or more of the following dose reduction techniques: Automated exposure control, adjustment of the mA and/or kV according to patient size, and/or use of iterative reconstruction technique. FINDINGS: Impacted transverse left femoral neck fracture with mild varus angulation. Mild comminution. No gross displacement. The femoral head sits normally within the left acetabulum. No other fracture identified. No lytic or blastic osseous lesion appreciated. No soft tissue hematoma. IMPRESSION: Impacted angulated transverse left femoral neck fracture with mild comminution.
[2018-07-25] MEDS ORDERED: Propofol 10 mg/ml Inj (20 ML) ONE (14:12)
[2018-07-25] MEDS ORDERED: Midazolam 2 MG/2 ML VIAL ONE (14:12)
[2018-07-25] MEDS ORDERED: Bupivacaine 0.5% Inj(30mL) ONE (14:16)
[2018-07-25] MEDS ORDERED: Rocuronium 10 mg/ml (5 ml) ONE ×2 (14:16→15:13)
[2018-07-25] MEDS ORDERED: Sevoflurane - Inhalation Anesthetic Liq (250 ml) ONE (15:54)
[2018-07-25] MEDS ORDERED: Glycopyrrolate 0.2 mg/ml (2ml vial) ONE (16:20)
[2018-07-25] MEDS ORDERED: Neostigmine Methylsulfate 3mg/3ml Syringe IV ONE (16:22)
[2018-07-25] MEDS ORDERED: Acetaminophen IV 1,000 MG in Premixed IV 100 EA IVPB ONE (16:26)
[2018-07-25] MEDS ORDERED: HYDROmorphone 0.5 mg/0.5 ml ISec IVP PRN (16:26)
[2018-07-25] MEDS ORDERED: Lactated Ringer's 1,000 ML IV SCH (16:30)
[2018-07-25] MEDS: Oxycodone/Acetaminophen 5/325 mg Tab PO PRN (20:57)
[2018-07-25] MEDS: ceFAZolin 1 gm in NS 1 GM/100 ML BAG IVPB SCH (22:10)
--- NOTE | 2018-07-25 22:22 | PN ---
Copied To: Nancy Lr MD Attending MD: Nancy Lr MD DATE: 07/25/2018 PULMONARY PROGRESS NOTE REFERRING PHYSICIAN: Dr. Banks SUBJECTIVE: He just came back from operating room status post hip replacement. No headache, no rhinitis. No nausea, no vomiting. Gets short of breath with exertion. Has a left hip pain. OBJECTIVE: GENERAL: In no acute distress. VITAL SIGNS: Temperature is 98, heart rate is 110, respiratory rate is 20, blood pressure 128/71, pulse ox 95% on nasal cannula. HEENT: Moist mucous membrane. Crowded airway. NECK: Supple. No JVD. LUNGS: Have scattered rhonchi and few crackles at bases. HEART: S1 and S2. ABDOMEN: Soft, nontender, no organomegaly. EXTREMITIES: Left hip has a dressing. Extremities, no edema. NEUROLOGIC: Awake and alert, follows simple command. MEDICATIONS: He is on Mucomyst inhaled twice a day, albuterol/Atrovent nebulizer every 6 hours p.r.n., Ancef 1 g IV every 8 hours, Ativan 0.5 mg every 4 hours p.r.n., Brovana inhaled twice a day, also getting Dilaudid 0.5 mg every 6 hours p.r.n., folic acid 1 mg daily, Klonopin 1 mg four times a day, lidocaine patch at affected area, Lovenox 40 mg daily, Lyrica 25 mg three times a day, Nephro vitamins daily, Pepcid 20 mg twice a day, Percocet 5/325 one tab every 6 hours p.r.n., prednisone 10 mg daily, Pulmicort inhaled twice a day, Singulair 10 mg daily, IV fluid normal saline 100 mL per hour, Spiriva inhaled daily, multivitamins daily, Toprol XL 25 mg daily, vitamin B1 100 mg daily, Zofran p.r.n. basis. LABORATORY DATA: Shows hemoglobin 12.1, hematocrit 34.9, WBC 8.8, platelet count is 192. Sodium 131, potassium 4.5, chloride 96, bicarbonate 29, BUN 8, creatinine 0.5, glucose 114, hemoglobin A1c 4.7, calcium 8.4, phosphorus 1.9, magnesium 1.9, AST 42, ALT 39, alk phos is 78. Albumin is 3.3. TSH 1.52. Alcohol level on admission was 84. IMPRESSION AND PLAN: Status post fall with hip fracture status post hip replacement, history of alcohol abuse, anxiety disorder, chronic obstructive lung disease, hypernatremia, history of fall with multiple rib fractures in the remote past. Spoke to nursing staff. IV fluids decreased to 50 mL per hour. Continue p.o. intake, p.o. and inhaled bronchodilator. Alcohol withdrawal precaution. Continue Ativan p.r.n. basis. Gastric prophylaxis. Deep venous thrombosis prophylaxis. Follow up labs in the morning. Thank you and we will follow with you. Nancy Lr MD
[2018-07-25] MEDS ORDERED: HYDROmorphone 1 mg/ml ISec IVP ONE (23:08)
[2018-07-26] MEDS: Oxycodone/Acetaminophen 5/325 mg Tab PO PRN ×2 (02:02→09:30)
[2018-07-26] MEDS: Non Formulary Medication (Budesonide/Formoterol Fumarate [Symbicort 160-4.5 Mcg Inhaler] 2 IH SCH ×2 (03:19→10:48)
--- NOTE | 2018-07-26 03:58 | OP ---
Copied To: Ortiz Kim MD Attending MD: Ortiz Kim MD PROCEDURE DATE: 07/25/2018 DIRECTOR LABOR STANDARDS: Elsa Riggins MD PREOPERATIVE DIAGNOSIS: Left hip femoral neck fracture. POSTOPERATIVE DIAGNOSIS: Left hip femoral neck fracture. PROCEDURE: Left total hip replacement. IMPLANT: Lyman 58 mm Tritanium cup, size 7 stem with high offset, 36 mm ceramic head with +2 5 neck length. ANESTHESIA TYPE: General. ESTIMATED BLOOD LOSS: 400 mL. COMPLICATIONS: None. HISTORY OF PRESENT ILLNESS: The patient is a 63-year-old male who had a mechanical fall and falling on his left hip. The patient went to the emergency room where x-ray showed a displaced femoral neck fracture. I have presented the patient with different treatment options and the patient elected to proceed with left total hip replacement. I reviewed the risks and benefits of the surgery with the patient in detail which included but not limited to bleeding, infection, nerve and vessel damage, continued pain, stiffness, dislocation, instability, iatrogenic fracture, among others. The patient fully understood the risks and benefits and opted to proceed. DESCRIPTION OF PROCEDURE: On the day of the surgery, the patient was brought down to preop holding area. A laterality was completed, confirming the patient's left hip to the correct operative site. Left hip was marked. An informed consent was signed from the patient. The patient was brought into operating room table. He underwent general anesthesia and was given appropriate prophylactic antibiotics. The left hip was draped and prepped in a standard surgical fashion. First, time-out was completed confirming the patient's to the correct operative site, we proceeded with left lateral decubitus posterior approach. A 10 cm incision was made using a 10 blade. An IT band was identified, was incised inline with its fibers. The external rotators were taken down in a standard fashion and tagged for later repair. There was obvious completely displaced femoral neck fracture. The proposed neck cut was made. The patient's femoral head was removed. First, we proceeded with preparation of acetabular socket, was sequentially reamed of 58 mm cup and a 58 mm Lyman Tritanium cup was impacted and positioning was confirmed using GPS guidance. Two screws were placed. The patient afterwards a 10-degree liner was impacted. Next, the attention was given to the femoral canal. The femoral canal was broached up to size 7 stem at high offset trial with 2.5 neck length was placed and the hip was reduced, was taken to the range of motion, which has appropriate tensioning, leg length and stability. The head was dislocated. All the trial implants were removed. A size 7 stem with high offset was placed and a ceramic 36 mm head with 2.5 neck length was secured onto the neck. The hip was reduced, once again taken through the range of motion and was found to be stable throughout the entire range of motion, and with appropriate neck length and tensioning. Next, the wound site was copiously irrigated to remove all the debris. Two drill holes were made in to the greater trochanter through hip external rotator. Then, the IT band skin was closed in a standard sterile manner and a sterile dressing was applied. The patient was extubated. He was transferred to the stretcher and taken to recovery room. There were no complications of surgery. Dr. Elsa Riggins, a board certified orthopedic surgeon, who was present for the entirety of the case. His participation was crucial in the patient's positioning and retraction of critical neurovascular structure and successful completion of the surgery. Ortiz Kim MD
[2018-07-26] MEDS: Sodium Chloride 0.9% 1,000 ML IV SCH ×2 (06:12→13:48)
[2018-07-26] MEDS: ceFAZolin 1 gm in NS 1 GM/100 ML BAG IVPB SCH (06:14)
--- NOTE | 2018-07-26 07:21 | CP.PCM.PN ---
Subjective - Date & Time of Evaluation Date of Evaluation: 07/26/18 Time of Evaluation: 06:10 - Subjective Subjective: Awake, alert,anxious, wanted to speak with surgeon, reassured Reason for consultation and follow up: Cardiac evaluation and clearance for pre- op left hip surgery, post fall, history of COPD, alcohol abuse,ex-smoker, post left hip surgery Seen and examined by me and Objective - Vital Signs/Intake and Output Vital Signs (last 24 hours): Temp Pulse Resp BP Pulse Ox 98.2 F 106 H 20 121/79 95 07/25/18 22:21 07/25/18 22:21 07/25/18 22:21 07/25/18 22:21 07/25/18 22:21 Intake and Output: 07/26/18 07/26/18 06:59 18:59 Intake Total 1740 Output Total 600 Balance 1140 - Medications Medications: Current Medications Acetylcysteine (Acetylcysteine 20%) 4 ml IH [id number] [facility] Last Admin: 07/25/18 19:41 Dose: 4 ml Albuterol Sulfate (Albuterol 0.083% Inhal Radha (2.5 Mg/3 Ml) Ud) 2.5 mg IH [id number] PRN PRN Reason: Cough and congestion Last Admin: 07/23/18 11:22 Dose: 2.5 mg Arformoterol Tartrate (Brovana) 15 mcg IH [id number] [facility] Last Admin: 07/25/18 19:41 Dose: 15 mcg Budesonide (Pulmicort Respules) 0.25 mg IH [id number] [facility] Last Admin: 07/25/18 19:41 Dose: 0.25 mg Clonazepam (Klonopin) 1 mg PO QID [facility] PRN Reason: Protocol Last Admin: 07/25/18 22:11 Dose: 1 mg Enoxaparin Sodium (Lovenox) 40 mg SC DAILY [facility] PRN Reason: Protocol Last Admin: 07/25/18 09:13 Dose: Not Given Famotidine (Pepcid) 20 mg PO BID [facility] Last Admin: 07/25/18 18:17 Dose: 20 mg Folic Acid (Folic Acid) 1 mg PO DAILY [facility] Last Admin: 07/25/18 18:18 Dose: 1 mg Hydromorphone HCl (Dilaudid) 0.5 mg IVP Q6H PRN PRN Reason: Pain, severe (8-10) Last Admin: 07/25/18 18:12 Dose: 0.5 mg Sodium Chloride (Sodium Chloride 0.9%) 1,000 mls @ 50 mls/hr IV .Q20H [facility] Last Admin: 07/26/18 06:12 Dose: 50 mls/hr Lidocaine (Lidoderm) 1 ea TD DAILY [facility] Last Admin: 07/25/18 09:13 Dose: Not Given Lorazepam (Ativan) 0.5 mg IVP Q4H PRN; Protocol PRN Reason: Anxiety Last Admin: 07/25/18 09:12 Dose: 0.5 mg Metoprolol Succinate (Toprol Xl) 25 mg PO DAILY [facility] Last Admin: 07/25/18 09:12 Dose: 25 mg Montelukast Sodium (Singulair) 10 mg PO HS [facility] Last Admin: 07/25/18 22:11 Dose: 10 mg Multivitamins/Minerals (Therapeutic-M Tab) 1 tab PO 1000 [facility] Last Admin: 07/25/18 18:19 Dose: 1 tab Non-Formulary Medication (Budesonide/Formoterol Fumarate [Symbicort 160-4.5 Mcg Inhaler]) 2 aer IH Q12 [facility] Last Admin: 07/26/18 03:19 Dose: Not Given Oxycodone/Acetaminophen (Percocet 5/325 Mg Tab) 1 tab PO Q6H PRN PRN Reason: Pain, moderate (4-7) Stop: 07/26/18 16:03 Last Admin: 07/26/18 02:02 Dose: 1 tab Prednisone (Prednisone Tab) 10 mg PO DAILY [facility] Last Admin: 07/25/18 18:19 Dose: 10 mg Pregabalin (Lyrica) 25 mg PO TID [facility] Last Admin: 07/25/18 18:17 Dose: Not Given Thiamine HCl (Vitamin B1 Tab) 100 mg PO DAILY [facility] Last Admin: 07/25/18 18:18 Dose: [address] (Spiriva) 18 mcg INH DAILY [facility] Last Admin: 07/25/18 09:13 Dose: 18 mcg Vitamin B Complex/Vit C/Folic Acid (Nephro-Donnie) 1 tab PO 0800 [facility] Last Admin: 07/25/18 07:32 Dose: Not Given - Labs Labs: 07/25/18 07:30 07/25/18 07:30 PT 10.8 SECONDS (9.4-12.5) 07/23/18 04:35 INR 0.95 07/23/18 04:35 APTT 27.7 Seconds (25.1-36.5) 07/23/18 04:35 - Constitutional Appears: No Acute Distress - Eye Exam Eye Exam: Normal appearance - ENT Exam ENT Exam: Mucous Membranes Moist - Respiratory Exam Respiratory Exam: Decreased Breath Sounds, NORMAL BREATHING PATTERN - Cardiovascular Exam Cardiovascular Exam: +S1, +S2 - GI/Abdominal Exam GI & Abdominal Exam: Soft, Normal Bowel Sounds - Extremities Exam Additional comments: left hip dressing, abductor pillow intact - Neurological Exam Neurological Exam: Alert, Awake, Oriented x3 - Psychiatric Exam Psychiatric exam: Anxious - Skin Skin Exam: Dry, Warm Assessment and Plan - Assessment and Plan (Free Text) Assessment: A 63 year old male who came in to the ER due to left hip pain post fall. history of COPD, alcohol abuse, ex-smoker,anxiety. Consult was called to evaluate and cardiac clearance for surgery. Patient denies any chest pain. ECHO showed normal LV function, atrial septal aneurysm,LVEF 50%. 04/2018 Normal stress test.no evidence of ischemia or heart failure. Will clear patient for surgery, moderate risk cobsidering co-morbidities.Status post total left hip replacement yesterday.Stable. Plan: Status post total left hip replacement yesterday PRN pain medicine given by RN for left hip pain Mildly anxious, wanted to speak with surgeon On Klonopin for anxiety Blood pressure controlled Tachycardia,110's/min, Will increase Toprol dose Cardiac status stable postoperatively Continue current medications Continue current treatment Will follow Plan and treatment discussed with Dr. Juárez
[2018-07-26] MEDS: Acetylcysteine 20% Inhal Soln (4ml) IH SCH ×2 (07:28→19:43)
[2018-07-26] MEDS: Arformoterol 15 mcg/2 ml Inh Sol IH SCH ×2 (07:28→19:44)
[2018-07-26] MEDS: Budesonide 0.25 mg/2 ml Inhal Susp UD IH SCH ×2 (07:28→19:44)
--- NOTE | 2018-07-26 08:35 | PN ---
Copied To: Susanne Banks MD Attending MD: Susanne Banks MD DATE: 07/25/2018 SUBJECTIVE: The patient was seen and examined on the bedside, awake, alert. Done with the surgery. Complaining about left hip pain. No fever. No chill. Tremors are better. Tachycardia is better. No hematuria or hematochezia. PHYSICAL EXAMINATION: VITAL SIGNS: Temperature 97.6, pulse 86, respiratory rate 20, blood pressure 142/89, pulse oximetry 96. HEENT: Head normocephalic, atraumatic. Eyes PERRLA. Extraocular muscles intact. Conjunctivae clear. Nose patent. Mucous membrane moist. NECK: Supple. No carotid bruit. No JVD or thyromegaly. CHEST: Bilaterally symmetrical. HEART: S1 and S2 positive. LUNGS: Clear to auscultation. ABDOMEN: Soft. Bowel sounds positive. No organomegaly. EXTREMITIES: No edema. No cyanosis. NEUROLOGICAL: The patient is awake and alert. Moving all 4 extremities. No focal deficits. MEDICATIONS: Acetylcysteine, albuterol, Brovana, Pulmicort, Klonopin, Lovenox, Pepcid, folic acid, Dilaudid, NS, Lidoderm, Ativan, Toprol, Singulair, multivitamins. LABORATORY DATA: White blood cells 9.3, hemoglobin 13.3, hematocrit 39, platelets 214. Sodium 129, potassium 4, BUN 5, creatinine 0.4, glucose 148. ASSESSMENT AND PLAN: Mr. Kody Schultz, 63-year-old male with anemia, hyponatremia, hyperglycemia, hypochloremia, has history of fall, history of chronic obstructive pulmonary disease, alcohol abuse, ex-smoker, anxiety, status post stress test. No evidence of ischemic heart failure, but Cardiology taken the patient for surgery. Cardiac status stable as per bag presser. Hip CT done showed impacted angulated transverse left femoral neck fracture with mild comminution. Continue pain management. Hip x-ray is read by me. Gastrointestinal and deep venous thrombosis prophylaxis. Repeat labs. We will follow up. Susanne Banks MD
--- NOTE | 2018-07-26 08:48 | CP.PCM.PN ---
Subjective - Date & Time of Evaluation Date of Evaluation: 07/26/18 Time of Evaluation: 08:45 - Subjective Subjective: Orthopedic follow up Dr. Kim/Vaishnavi Patient states he is concerned about bleeding from incision site, says he is nervous because he lives alone. Denies CP/SOB/dizziness. Pain in hip is controlled. Denies numbness/tingling Objective - Vital Signs/Intake and Output Vital Signs (last 24 hours): Temp Pulse Resp BP Pulse Ox 98.3 F 102 H 18 108/67 96 07/26/18 06:00 07/26/18 06:00 07/26/18 06:00 07/26/18 06:00 07/26/18 06:00 Intake and Output: 07/26/18 07/26/18 06:59 18:59 Intake Total 1740 Output Total 600 Balance 1140 - Medications Medications: Current Medications Acetylcysteine (Acetylcysteine 20%) 4 ml IH [id number] [facility] Last Admin: 07/26/18 07:28 Dose: 4 ml Albuterol Sulfate (Albuterol 0.083% Inhal Radha (2.5 Mg/3 Ml) Ud) 2.5 mg IH [id number] PRN PRN Reason: Cough and congestion Last Admin: 07/23/18 11:22 Dose: 2.5 mg Arformoterol Tartrate (Brovana) 15 mcg IH [id number] [facility] Last Admin: 07/26/18 07:28 Dose: 15 mcg Budesonide (Pulmicort Respules) 0.25 mg IH [id number] [facility] Last Admin: 07/26/18 07:28 Dose: 0.25 mg Clonazepam (Klonopin) 1 mg PO QID [facility] PRN Reason: Protocol Last Admin: 07/25/18 22:11 Dose: 1 mg Enoxaparin Sodium (Lovenox) 40 mg SC DAILY [facility] PRN Reason: Protocol Last Admin: 07/25/18 09:13 Dose: Not Given Famotidine (Pepcid) 20 mg PO BID [facility] Last Admin: 07/25/18 18:17 Dose: 20 mg Folic Acid (Folic Acid) 1 mg PO DAILY [facility] Last Admin: 07/25/18 18:18 Dose: 1 mg Hydromorphone HCl (Dilaudid) 0.5 mg IVP Q6H PRN PRN Reason: Pain, severe (8-10) Last Admin: 07/25/18 18:12 Dose: 0.5 mg Lidocaine (Lidoderm) 1 ea TD DAILY [facility] Last Admin: 07/25/18 09:13 Dose: Not Given Lorazepam (Ativan) 0.5 mg IVP Q4H PRN; Protocol PRN Reason: Anxiety Last Admin: 07/25/18 09:12 Dose: 0.5 mg Metoprolol Succinate (Toprol Xl) 50 mg PO BRK [facility] Montelukast Sodium (Singulair) 10 mg PO HS [facility] Last Admin: 07/25/18 22:11 Dose: 10 mg Multivitamins/Minerals (Therapeutic-M Tab) 1 tab PO 1000 [facility] Last Admin: 07/25/18 18:19 Dose: 1 tab Non-Formulary Medication (Budesonide/Formoterol Fumarate [Symbicort 160-4.5 Mcg Inhaler]) 2 aer IH Q12 [facility] Last Admin: 07/26/18 03:19 Dose: Not Given Oxycodone/Acetaminophen (Percocet 5/325 Mg Tab) 1 tab PO Q6H PRN PRN Reason: Pain, moderate (4-7) Stop: 07/26/18 16:03 Last Admin: 07/26/18 02:02 Dose: 1 tab Prednisone (Prednisone Tab) 10 mg PO DAILY [facility] Last Admin: 07/25/18 18:19 Dose: 10 mg Pregabalin (Lyrica) 25 mg PO TID [facility] Last Admin: 07/25/18 18:17 Dose: Not Given Thiamine HCl (Vitamin B1 Tab) 100 mg PO DAILY [facility] Last Admin: 07/25/18 18:18 Dose: 100 mg Tiotropium [place] (Spiriva) 18 mcg INH DAILY [facility] Last Admin: 07/25/18 09:13 Dose: 18 mcg Vitamin B Complex/Vit C/Folic Acid (Nephro-Donnie) 1 tab PO 0800 [facility] Last Admin: 07/25/18 07:32 Dose: Not Given - Labs Labs: 07/25/18 07:30 07/25/18 07:30 PT 10.8 SECONDS (9.4-12.5) 07/23/18 04:35 INR 0.95 07/23/18 04:35 APTT 27.7 Seconds (25.1-36.5) 09/02/18 04:35 - Extremities Exam Additional comments: Noted moderate sang drainage from pin site, no active bleeding. Dressing changed. Incisional dressing intact, small amount sang drainage noted on dresssing. Thigh soft, minimally tender. +abduction pillow, +ROM ankle/toes, sensation intact +DP/PT pulses calves soft NT neg homans +SCDs Assessment and Plan (1) Closed displaced fracture of left femoral neck Assessment & Plan: POD#1 s/p left THR post hip precautions PT/OT VTE proph lovenox scdS D/C planning oozing from pin site (into iliac crest, some oozing expected, normal, dressing change prn) f/u labs d/w Dr. Riggins (covering for Dr. Kim) agrees with above Status: Acute
[2018-07-26] MEDS: Multivitamin With Minerals Tab PO SCH (09:27)
[2018-07-26] MEDS: Tiotropium 18 mcg Cap For Inhalation INH SCH (09:28)
[2018-07-26] MEDS: Metoprolol Succinate 50 mg XL Tab PO SCH (09:28)
[2018-07-26] MEDS: Enoxaparin 40 mg Syringe SC SCH (09:30)
[2018-07-26] MEDS: Multivitamin Vitamin B Complex (Nephro-Vite) Tab PO SCH (09:30)
[2018-07-26 10:46] LABS: HEMOGLOBIN 10.5 g/dL (14.0-18.0); MEAN CELL VOLUME 96.8 fl (80.0-105.0); MEAN CORPUSCULAR HEMOGLOBIN 33.7 pg (25.0-35.0); MEAN CORPUSCULAR HGB CONC 34.8 g/dl (31.0-37.0); MEAN PLATELET VOLUME 9.5 fl (7.0-11.0); RBC 3.12 10^6/uL (3.5-6.1); RED CELL DISTRIBUTION WIDTH 13.1 % (11.5-14.5); WHITE BLOOD COUNT 11.3 10^3/ul (4.5-11.0)
[2018-07-26] MEDS: Lidocaine 5% Patch TD SCH (10:49)
[2018-07-26 11:00] LABS: ALB/GLOB RATIO 1.2 (1.1-1.8); ALBUMIN 3.3 g/dL (3.0-4.8); ALT/SGPT 36 U/L (7-56); AST/SGOT 41 U/L (17-59); BLOOD UREA NITROGEN 6 mg/dL (7-21); CALCIUM 8.2 mg/dL (8.4-10.5); GFR NON-AFRICAN AMERICAN > 60
--- NOTE | 2018-07-26 12:51 | RAD ---
Date of service: 07/25/2018 PROCEDURE: Radiographs of the pelvis. HISTORY: post op COMPARISON: None. FINDINGS: BONES: Pelvic Bones: Unremarkable. Hips: There is a left hip arthroplasty. There is anatomic alignment. No complicating factors JOINTS: Sacroiliac Joints: Unremarkable. Pubic Symphysis: Unremarkable. OTHER FINDINGS: None. IMPRESSION: Negative study
--- NOTE | 2018-07-26 13:01 | RAD ---
Date of service: 07/25/2018 PROCEDURE: Left hip HISTORY: TOTAL HIP REPLACEMENT (LEFT) COMPARISON: TECHNIQUE: Single portable view FINDINGS: There is a left hip arthroplasty. No complicating factors IMPRESSION: Negative study
[2018-07-26 17:58] LABS: BASO # 0.02 K/mm3 (0.0-2.0); BASO % 0.2 % (0.0-3.0); EOS % 0.1 % (1.5-5.0); GRAN # 8.47 (1.4-6.5); GRAN % 75.5 % (50.0-68.0); HEMOGLOBIN 9.9 g/dL (14.0-18.0); LYMPH # 1.2 (1.2-3.4); LYMPH % 10.9 % (22.0-35.0); MEAN CELL VOLUME 96.3 fl (80.0-105.0); MEAN CORPUSCULAR HEMOGLOBIN 33.6 pg (25.0-35.0); MEAN CORPUSCULAR HGB CONC 34.9 g/dl (31.0-37.0); MEAN PLATELET VOLUME 9.5 fl (7.0-11.0); MONO # 1.5 (0.1-0.6); MONO % 13.3 % (1.0-6.0); RBC 2.95 10^6/uL (3.5-6.1); RED CELL DISTRIBUTION WIDTH 12.9 % (11.5-14.5); WHITE BLOOD COUNT 11.2 10^3/ul (4.5-11.0)
[2018-07-26 18:11] LABS: ALB/GLOB RATIO 1.2 (1.1-1.8); ALBUMIN 3.1 g/dL (3.0-4.8); ALT/SGPT 32 U/L (7-56); AST/SGOT 39 U/L (17-59); BLOOD UREA NITROGEN 6 mg/dL (7-21); CALCIUM 8.2 mg/dL (8.4-10.5); GFR NON-AFRICAN AMERICAN > 60
--- NOTE | 2018-07-26 19:30 | PN ---
Copied To: Nancy Lr MD Attending MD: Nancy Lr MD DATE: 07/26/2018 PULMONARY PROGRESS NOTE REFERRING PHYSICIAN: Susanne Banks MD SUBJECTIVE: He is lying in the bed, head at 45 degrees. Night was unremarkable. Not much cough or shortness of breath. No chest pain. Has left hip pain, was out of bed to chair today, but lot of pain. No leg swelling. OBJECTIVE: GENERAL: In no acute distress. VITAL SIGNS: Temperature is 98, heart rate is 101, respiratory rate is 20, blood pressure 108/67, pulse ox 96% on 2 L nasal cannula. HEENT: Moist mucous membranes. Crowded airway. NECK: Supple. No JVD. LUNGS: A fair airflow with rhonchi. HEART: S1 and S2. ABDOMEN: Soft and nontender. No organomegaly. EXTREMITIES: Left hip discomfort, has a dressing on the incision site. NEUROLOGIC: Awake and alert, follows simple command. MEDICATIONS: He is on Mucomyst 20% inhaled twice a day, DuoNeb every 6 hours p.r.n., lorazepam 1 mg three times a day p.r.n., Brovana inhaled twice a day, Colace 100 mg twice a day, Dilaudid 2 mg every 6 hours p.r.n., folic acid 1 mg daily, clonazepam 1 mg four times a day, Lidoderm patch to affected area, Lovenox 40 mg daily, Lyrica 25 mg three times a day, Nephro vitamins daily, Pepcid 20 mg twice a day, OxyContin every 6 hours p.r.n., prednisone 10 mg daily, Pulmicort inhaled twice a day, Singulair 10 mg daily, IV fluid normal saline 80 mL/hour, Spiriva one capsule inhaled daily, multivitamins daily, Toprol XL 50 mg daily, multivitamins daily, vitamin B1 of 100 mg daily, vitamin D 1000 IU daily. LABORATORY DATA: Shows hemoglobin 10.5, hematocrit 30.2, WBC 11.3, and platelet count is 202. Sodium of 128, potassium 3.9, chloride 93, bicarbonate 24. BUN 6, creatinine 0.4. Glucose 123. Calcium is 8.2. Total bili 1.5, AST 41, ALT 36, alk phos is 77. Albumin is 3.3. Vitamin D is less than 12.8. IMPRESSION AND PLAN: Status post fall with hip fracture requiring hip replacement, anxiety disorder, chronic obstructive lung disease, hyponatremia, history of fall with multiple rib fractures. Spoke to the patient in detail about free water and consequences in hyponatremia. We will add sodium chloride 2 g p.o. daily. We will discontinue IV fluid. Alcohol withdrawal precaution, on Ativan and thiamine. High risk for fall. Needs close monitoring when gets out of bed to chair. Thank you and we will follow with you. Nancy Lr MD
[2018-07-27] MEDS: Sodium Chloride 0.9% 1,000 ML IV SCH (06:21)
[2018-07-27 07:14] LABS: MEAN CELL VOLUME 96.7 fl (80.0-105.0); MEAN CORPUSCULAR HEMOGLOBIN 33.5 pg (25.0-35.0); MEAN CORPUSCULAR HGB CONC 34.6 g/dl (31.0-37.0); MEAN PLATELET VOLUME 9.4 fl (7.0-11.0); RBC 2.69 10^6/uL (3.5-6.1); RED CELL DISTRIBUTION WIDTH 13.1 % (11.5-14.5); WHITE BLOOD COUNT 9.9 10^3/ul (4.5-11.0)
[2018-07-27] MEDS: Acetylcysteine 20% Inhal Soln (4ml) IH SCH ×2 (07:21→19:49)
[2018-07-27] MEDS: Budesonide 0.25 mg/2 ml Inhal Susp UD IH SCH ×2 (07:22→19:49)
[2018-07-27] MEDS: Arformoterol 15 mcg/2 ml Inh Sol IH SCH ×2 (07:22→19:49)
[2018-07-27 07:30] LABS: BLOOD UREA NITROGEN 5 mg/dL (7-21); CALCIUM 7.9 mg/dL (8.4-10.5); GFR NON-AFRICAN AMERICAN > 60
--- NOTE | 2018-07-27 07:33 | CP.PCM.CON ---
<Zahra Perales - Last Filed: 07/27/18 14:09> History of Present Illness - History of Present Illness History of Present Illness: Pgy3 ID Consult Note for Dr. Hoffman Reason for Consult: post op fever 63 yo male PMHx anxiety and COPD presented to [facility] ER on 07/23 s/p mecahnical fall. Patient was found to have L hip femoral neck fracture and was taken to the OR. Today patient is POD#2 left total hip replacement. Patient tolerated procedure well and had no complications in the OR. Postop patient had a recorded temperature of 102F on 07/26. ID was consulted for post op fever. This AM upon questioning patient denies any subjective fever/chills and reports feeling well. He denied acute complaints of headache, dizziness, chest pain, palpitations, abdominal pain, nausea, vomiting, bowel/bladder complaints, swelling in his legs b/l. Patient's pain is controlled with pain regimen. He does have some dyspnea and a nonproductive cough which is chronic in light of his tobacco use and COPD. Patient has been using the IS and has been tolerating good PO intake. PMHx: anxiety, tobacco abuse, COPD PSurgHx: tonsillectomy Meds: pls see chart ALL: NKDA FamHx: HI in mother SocHx: quit tobacco abuse 10 months ago- used to smoke 1ppd for 35 years; drinks 2-3beers daily; denies any drug use; on disability due to anxiety Review of Systems - Review of Systems All systems: reviewed and no additional remarkable complaints except Review of Systems: as per HPI Past Patient History - Past Social History Smoking Status: Former Smoker - CARDIAC Hx Cardiac Disorders: Yes - PULMONARY Hx Chronic Obstructive Pulmonary Disease (COPD): Yes - NEUROLOGICAL Hx Neurological Disorder: No Other/Comment: chronic shaking - HEENT Hx HEENT Problems: Yes (eyeglasses) - RENAL Hx Renal Failure: Yes - ENDOCRINE/METABOLIC Hx Endocrine Disorders: No - HEMATOLOGICAL/ONCOLOGICAL Hx Blood Disorders: No - INTEGUMENTARY Hx Dermatological Problems: Yes Other/Comment: bruises to knees lower legs, L flank,, rle abrasion all healed. b /l feet remain dry scaley hard thick toenails and toenails are thick and curled , skin around toes are dry hard and scaley, multiple skin discolorations both arms - MUSCULOSKELETAL/RHEUMATOLOGICAL Hx Falls: Yes - GASTROINTESTINAL Hx Gastrointestinal Disorders: No - GENITOURINARY/GYNECOLOGICAL Hx Genitourinary Disorders: No - PSYCHIATRIC Hx Psychophysiologic Disorder: Yes Hx Anxiety: Yes Other/Comment: admits to quitting drinking 5 beers a day in march 2018, admits to quit smoking 03/2018, pt has hx of alcohol withdrawal - SURGICAL HISTORY Hx Surgeries: Yes - ANESTHESIA Hx Anesthesia Reactions: No Hx Malignant Hyperthermia: No Meds Allergies/Adverse Reactions: Allergies Allergy/AdvReac Type Severity Reaction Status Date / Time No Known Allergies Allergy Verified 03/30/18 19:29 - Medications Medications: Current Medications Acetaminophen (Tylenol 325mg Tab) 650 mg PO Q4H PRN PRN Reason: Fever >100.4 F Acetylcysteine (Acetylcysteine 20%) 4 ml IH [id number] [facility] Last Admin: 07/27/18 07:21 Dose: 4 ml Albuterol Sulfate (Albuterol 0.083% Inhal Radha (2.5 Mg/3 Ml) Ud) 2.5 mg IH [id number] PRN PRN Reason: Cough and congestion Last Admin: 07/23/18 11:22 Dose: 2.5 mg Arformoterol Tartrate (Brovana) 15 mcg IH [id number] [facility] Last Admin: 07/27/18 07:22 Dose: 15 mcg Budesonide (Pulmicort Respules) 0.25 mg IH [id number] [facility] Last Admin: 07/27/18 07:22 Dose: 0.25 mg Cholecalciferol (Vitamin D) 1,000 intlu PO DAILY [facility] Clonazepam (Klonopin) 1 mg PO QID [facility] PRN Reason: Protocol Last Admin: 07/26/18 21:51 Dose: 1 mg Docusate Sodium (Colace) 100 mg PO BID [facility] Last Admin: 07/26/18 18:16 Dose: 100 mg Enoxaparin Sodium (Lovenox) 40 mg SC DAILY [facility] PRN Reason: Protocol Last Admin: 07/26/18 09:30 Dose: 40 mg Famotidine (Pepcid) 20 mg PO BID [facility] Last Admin: 07/26/18 18:18 Dose: 20 mg Folic Acid (Folic Acid) 1 mg PO DAILY [facility] Last Admin: 07/26/18 09:28 Dose: 1 mg Hydromorphone HCl (Dilaudid) 2 mg PO Q6H PRN PRN Reason: Pain, severe (8-10) Last Admin: 07/26/18 12:18 Dose: 2 mg Sodium Chloride (Sodium Chloride 0.9%) 1,000 mls @ 80 mls/hr IV .[id number] [facility] Last Admin: 07/27/18 06:21 Dose: 80 mls/hr Lidocaine (Lidoderm) 1 ea TD DAILY [facility] Last Admin: 07/26/18 10:49 Dose: Not Given Lorazepam (Ativan) 1 mg PO TID PRN; Protocol PRN Reason: Anxiety Last Admin: 07/26/18 15:35 Dose: 1 mg Metoprolol Succinate (Toprol Xl) 50 mg PO BRK [facility] Last Admin: 07/26/18 09:28 Dose: 50 mg Montelukast Sodium (Singulair) 10 mg PO HS [facility] Last Admin: 07/26/18 21:51 Dose: 10 mg Multivitamins/Minerals (Therapeutic-M Tab) 1 tab PO 1000 [facility] Last Admin: 07/26/18 09:27 Dose: 1 tab Non-Formulary Medication (Budesonide/Formoterol Fumarate [Symbicort 160-4.5 Mcg Inhaler]) 2 aer IH Q12 [facility] Last Admin: 07/26/18 10:48 Dose: Not Given Prednisone (Prednisone Tab) 10 mg PO DAILY [facility] Last Admin: 07/26/18 09:28 Dose: 10 mg Pregabalin (Lyrica) 25 mg PO TID [facility] Last Admin: 07/26/18 18:17 Dose: 25 mg Sodium Chloride (Sodium Chloride Tab) 1 gm PO WM [facility] Last Admin: 07/26/18 18:18 Dose: 1 gm Thiamine HCl (Vitamin B1 Tab) 100 mg PO DAILY [facility] Last Admin: 07/26/18 09:27 Dose: 100 mg Tiotropium [place] (Spiriva) 18 mcg INH DAILY [facility] Last Admin: 07/26/18 09:28 Dose: 18 mcg Vitamin B Complex/Vit C/Folic Acid (Nephro-Donnie) 1 tab PO 0800 [facility] Last Admin: 07/26/18 09:30 Dose: 1 tab Physical Exam - Constitutional Appears: Non-toxic, No Acute Distress - Head Exam Head Exam: ATRAUMATIC, NORMAL INSPECTION, NORMOCEPHALIC - Eye Exam Eye Exam: EOMI, Normal appearance, PERRL. absent: Conjunctival injection Pupil Exam: PERRL - ENT Exam ENT Exam: Mucous Membranes Moist - Neck Exam Neck exam: Positive for: Full Rom, Normal Inspection - Respiratory Exam Respiratory Exam: Decreased Breath Sounds, NORMAL BREATHING PATTERN. absent: Accessory Muscle Use, Respiratory Distress - Cardiovascular Exam Cardiovascular Exam: Tachycardia, +S1, +S2 - GI/Abdominal Exam GI & Abdominal Exam: Normal Bowel Sounds, Soft. absent: Firm, Guarding, Tenderness - Rectal Exam Rectal Exam: Deferred - Extremities Exam Extremities exam: Negative for: pedal edema - Neurological Exam Neurological exam: Alert, CN II-XII Intact, Oriented x3 - Psychiatric Exam Psychiatric exam: Anxious - Skin Skin Exam: Dry, Intact Results - Vital Signs Recent Vital Signs: Last Vital Signs Temp 98.9 F 07/26/18 22:29 Pulse 99 H 07/26/18 22:29 Resp 18 07/26/18 22:29 BP 118/77 07/26/18 22:29 Pulse Ox 97 07/26/18 22:29 - Labs Result Diagrams: 07/27/18 06:45 07/27/18 06:45 Labs: Laboratory Results - last 24 hr 07/26/18 07/26/18 07/26/18 09:15 10:30 10:30 WBC 11.3 H D RBC 3.12 L Hgb 10.5 L Hct 30.2 L MCV 96.8 MCH 33.7 MCHC 34.8 RDW 13.1 Plt Count 202 MPV 9.5 Gran % Lymph % (Auto) Archer % (Auto) Eos % (Auto) Baso % (Auto) Gran # Lymph # (Auto) Archer # (Auto) Eos # (Auto) Baso # (Auto) Sodium 128 L Potassium 3.9 Chloride 93 L Carbon Dioxide 24 Anion Gap 14 BUN 6 L Creatinine 0.4 L Est GFR ( Amer) > 60 Est GFR (Non-Af Amer) > 60 Random Glucose 123 H Calcium 8.2 L Phosphorus Magnesium Total Bilirubin 1.5 H AST 41 ALT 36 Alkaline Phosphatase 77 Total Protein 6.0 Albumin 3.3 Globulin 2.7 Albumin/Globulin Ratio 1.2 25-OH Vitamin D Total < 12.8 L 07/26/18 07/26/18 07/27/18 17:45 17:45 06:45 WBC 11.2 H 9.9 RBC 2.95 L 2.69 L Hgb 9.9 L 9.0 L Hct 28.4 L 26.0 L MCV 96.3 96.7 MCH 33.6 33.5 MCHC 34.9 34.6 RDW 12.9 13.1 Plt Count 194 181 MPV 9.5 9.4 Gran % 75.5 H Lymph % (Auto) 10.9 L Archer % (Auto) 13.3 H Eos % (Auto) 0.1 L Baso % (Auto) 0.2 Gran # 8.47 H Lymph # (Auto) 1.2 Archer # (Auto) 1.5 H Eos # (Auto) 0.0 Baso # (Auto) 0.02 Sodium 128 L Potassium 3.7 Chloride 95 L Carbon Dioxide 27 Anion Gap 11 BUN 6 L Creatinine 0.5 L Est GFR ( Amer) > 60 Est GFR (Non-Af Amer) > 60 Random Glucose 159 H Calcium 8.2 L Phosphorus 2.3 L Magnesium 1.8 Total Bilirubin 1.2 AST 39 ALT 32 Alkaline Phosphatase 74 Total Protein 5.7 L Albumin 3.1 Globulin 2.5 Albumin/Globulin Ratio 1.2 25-OH Vitamin D Total 07/27/18 06:45 WBC RBC Hgb Hct MCV MCH MCHC RDW Plt Count MPV Gran % Lymph % (Auto) Archer % (Auto) Eos % (Auto) Baso % (Auto) Gran # Lymph # (Auto) Archer # (Auto) Eos # (Auto) Baso # (Auto) Sodium 130 L Potassium 3.7 Chloride 96 L Carbon Dioxide 27 Anion Gap 11 BUN 5 L Creatinine 0.5 L Est GFR ( Amer) > 60 Est GFR (Non-Af Amer) > 60 Random Glucose 100 Calcium 7.9 L Phosphorus Magnesium Total Bilirubin AST ALT Alkaline Phosphatase Total Protein Albumin Globulin Albumin/Globulin Ratio 25-OH Vitamin D Total Assessment & Plan - Assessment and Plan (Free Text) Assessment: 63 yo male PMHx anxiety and COPD presented to [facility] ER on 07/23 s/p mecahnical fall. Patient was found to have L hip femoral neck fracture and was taken to the OR. Today patient is POD#2 left total hip replacement. Postop patient had a recorded temperature of 102F on 07/26. ID was consulted for post op fever. Plan: -Patient had temp 102F recorded on 07/26 at 19:36 after which he did not receive any anti-pyretic. Repeat temp on 07/26 at 20:30 was 98.6F -patient has been afebrile throughout hospital course and denied subjective fever/chills -CXR 07/27: unremarkable -patient encouarged to continue using IS -f/u blood and urine cultures and procalcitonin -f/u LE dopplers -at this time monitor patient off abx -continue management as per primary ID will continue to follow Discussed with Dr. Yasmin Perales PGY3 <Jesus Alberto Hoffman - Last Filed: 07/27/18 21:18> Meds - Medications Medications: Current Medications Acetaminophen (Tylenol 325mg Tab) 650 mg PO Q4H PRN PRN Reason: Fever >100.4 F Acetylcysteine (Acetylcysteine 20%) 4 ml IH [id number] [facility] Last Admin: 07/27/18 19:49 Dose: 4 ml Albuterol Sulfate (Albuterol 0.083% Inhal Radha (2.5 Mg/3 Ml) Ud) 2.5 mg IH [id number] PRN PRN Reason: Cough and congestion Last Admin: 07/23/18 11:22 Dose: 2.5 mg Arformoterol Tartrate (Brovana) 15 mcg IH [id number] [facility] Last Admin: 07/27/18 19:49 Dose: 15 mcg Budesonide (Pulmicort Respules) 0.25 mg IH [id number] [facility] Last Admin: 07/27/18 19:49 Dose: 0.25 mg Calcium/Vitamin D (Oscal-D 250 Mg-125 Units Tab) 1 tab PO DAILY [facility] Last Admin: 07/27/18 14:20 Dose: 1 tab Cholecalciferol (Vitamin D) 1,000 intlu PO DAILY [facility] Last Admin: 07/27/18 09:48 Dose: 1,000 intlu Clonazepam (Klonopin) 1 mg PO QID [facility] PRN Reason: Protocol Last Admin: 07/27/18 21:01 Dose: 1 mg Docusate Sodium (Colace) 100 mg PO BID [facility] Last Admin: 07/27/18 17:23 Dose: 100 mg Enoxaparin Sodium (Lovenox) 40 mg SC DAILY [facility] PRN Reason: Protocol Last Admin: 07/27/18 09:47 Dose: 40 mg Famotidine (Pepcid) 20 mg PO BID [facility] Last Admin: 07/27/18 17:22 Dose: 20 mg Folic Acid (Folic Acid) 1 mg PO DAILY [facility] Last Admin: 07/27/18 09:48 Dose: 1 mg Hydromorphone HCl (Dilaudid) 2 mg PO Q6H PRN PRN Reason: Pain, severe (8-10) Last Admin: 07/27/18 21:01 Dose: 2 mg Lidocaine (Lidoderm) 1 ea TD DAILY [facility] Last Admin: 07/26/18 10:49 Dose: Not Given Lorazepam (Ativan) 1 mg PO TID PRN; Protocol PRN Reason: Anxiety Last Admin: 07/27/18 08:33 Dose: 1 mg Metoprolol Succinate (Toprol Xl) 50 mg PO BRK [facility] Last Admin: 07/27/18 08:34 Dose: 50 mg Montelukast Sodium (Singulair) 10 mg PO HS [facility] Last Admin: 07/27/18 21:02 Dose: 10 mg Multivitamins/Minerals (Therapeutic-M Tab) 1 tab PO 1000 [facility] Last Admin: 07/27/18 09:47 Dose: 1 tab Non-Formulary Medication (Budesonide/Formoterol Fumarate [Symbicort 160-4.5 Mcg Inhaler]) 2 aer IH Q12 [facility] Last Admin: 07/27/18 09:36 Dose: Not Given Prednisone (Prednisone Tab) 10 mg PO DAILY [facility] Last Admin: 07/27/18 09:49 Dose: 10 mg Pregabalin (Lyrica) 25 mg PO TID [facility] Last Admin: 07/27/18 14:22 Dose: 25 mg Sodium Chloride (Sodium Chloride Tab) 1 gm PO WM [facility] Last Admin: 07/27/18 17:22 Dose: 1 gm Thiamine HCl (Vitamin B1 Tab) 100 mg PO DAILY [facility] Last Admin: 07/27/18 09:53 Dose: 100 mg Tiotropium [place] (Spiriva) 18 mcg INH DAILY [facility] Last Admin: 07/27/18 09:45 Dose: 18 mcg Vitamin B Complex/Vit C/Folic Acid (Nephro-Donnie) 1 tab PO 0800 [facility] Last Admin: 07/27/18 08:34 Dose: 1 tab Results - Vital Signs Recent Vital Signs: Last Vital Signs Temp 99.3 F 07/27/18 14:00 Pulse 104 H 07/27/18 14:00 Resp 17 07/27/18 14:00 BP 104/67 07/27/18 14:00 Pulse Ox 97 07/27/18 14:00 - Labs Result Diagrams: 07/27/18 06:45 07/27/18 06:45 Labs: Laboratory Results - last 24 hr 07/24/18 07/27/18 07/27/18 11:00 06:45 06:45 WBC 9.9 RBC 2.69 L Hgb 9.0 L Hct 26.0 L MCV 96.7 MCH 33.5 MCHC 34.6 RDW 13.1 Plt Count 181 MPV 9.4 Sodium 130 L Potassium 3.7 Chloride 96 L Carbon Dioxide 27 Anion Gap 11 BUN 5 L Creatinine 0.5 L Est GFR ( Amer) > 60 Est GFR (Non-Af Amer) > 60 Random Glucose 100 Calcium 7.9 L Procalcitonin Blood Type O POSITIVE Antibody Screen Negative Crossmatch See Detail BBK History Checked No verified bt 07/27/18 07:30 WBC RBC Hgb Hct MCV MCH MCHC RDW Plt Count MPV Sodium Potassium Chloride Carbon Dioxide Anion Gap BUN Creatinine Est GFR ( Amer) Est GFR (Non-Af Amer) Random Glucose Calcium Procalcitonin 0.31 Blood Type Antibody Screen Crossmatch BBK History Checked Assessment & Plan - Assessment and Plan (Free Text) Plan: Infectious Diseases Attending Physician Addendum Patient seen and examined, discussed with medical practice administrator. I have reviewed the pertinent clinical information for the patient, including history of present illness, medical, personal and social histories, lab results and imaging findings. I agree with the above findings, assessment and plan. In addition, will follow up blood cx, urine cx, PCT for this patient with possible post-op fever (post-left total hip replacement). Surgical site looks clean. Will monitor off antibiotics.
--- NOTE | 2018-07-27 08:15 | PN ---
DATE: 07/26/2018 SUBJECTIVE: The patient is a 63-year-old male. The patient was seen and examined on the bedside on 07/26/2018. The patient is looking comfortable. No nausea or vomiting. No headache, no chest pain, no palpitation. Still having pain in the hip area. The patient has fever. Tylenol ordered. Septic workup ordered. ID consult called, status post surgery. Getting physical therapy and pain medication. PHYSICAL EXAMINATION VITAL SIGNS: Temperature 98, heart rate 101, respiratory rate 20, blood pressure 108/67, pulse oximetry 96% on two liters nasal cannula. HEENT: Head normocephalic, atraumatic. Eyes PERRLA. Extraocular muscles intact. Conjunctivae clear. Nose patent. NECK: Supple. No carotid bruit. No JVD or thyromegaly. CHEST: Bilaterally symmetrical. HEART: S1 and S2 positive. LUNGS: Clear to auscultation. ABDOMEN: Soft. Bowel sounds positive. No organomegaly. EXTREMITIES: No edema. No cyanosis. of lower extremity is limited. NEUROLOGICAL: The patient is awake and alert. Follows simple commands. Oriented x3. MEDICATIONS: Mucomyst, DuoNeb, lorazepam, Brovana inhalation, Colace, Dilaudid, clonazepam, Lidoderm, Lovenox, Lyrica, Pulmicort, multivitamins. LABORATORY DATA: Hemoglobin 10.5, hematocrit 30.2, white blood cell 11.3, platelets 202. Sodium 128, potassium 3.9, BUN 6, creatinine 0.4, glucose 123. AST 41, ALT 36. ASSESSMENT AND PLAN: Mr. Kody Schultz is status post fall with hip fracture, requiring hip replacement, has hip surgery, history of ethanol abuse, status post anxiety disorder, chronic obstructive lung disease, hyponatremia, multiple rib fractures due to fall. Now, he has fever, rule out sepsis. The patient was informed try to avoid free water. Dr. Lr added sodium chloride 2 g p.o. daily. Discontinue IV fluid. Seizure precautions. The patient is getting Ativan and thiamine for alcohol withdrawals. High risk for fall. Now, Dr. Wong is on the case for sepsis. Monitor the patient's fever. We will give Tylenol for fever. Appreciated Dr. Lr, surgeon and multi sensor operator and ID input. We will follow up. Susanne Banks MD [facility] # [id number] NICCI
[2018-07-27] MEDS: Metoprolol Succinate 50 mg XL Tab PO SCH (08:34)
[2018-07-27] MEDS: Multivitamin Vitamin B Complex (Nephro-Vite) Tab PO SCH (08:34)
--- NOTE | 2018-07-27 08:46 | CP.PCM.PN ---
Subjective - Date & Time of Evaluation Date of Evaluation: 07/27/18 Time of Evaluation: 06:30 - Subjective Subjective: Awake, calm, no distress Reason for consultation and follow up: Cardiac evaluation and clearance for pre- op left hip surgery, post fall, history of COPD, alcohol abuse,ex-smoker, post left hip surgery Seen and examined by me and Objective - Vital Signs/Intake and Output Vital Signs (last 24 hours): Temp Pulse Resp BP Pulse Ox 98.9 F 98 H 18 123/68 97 07/26/18 22:29 07/27/18 08:34 07/26/18 22:29 07/27/18 08:34 07/26/18 22:29 Intake and Output: 07/27/18 07/27/18 06:59 18:59 Intake Total 180 Output Total 500 Balance -320 - Medications Medications: Current Medications Acetaminophen (Tylenol 325mg Tab) 650 mg PO Q4H PRN PRN Reason: Fever >100.4 F Acetylcysteine (Acetylcysteine 20%) 4 ml IH [id number] [facility] Last Admin: 07/27/18 07:21 Dose: 4 ml Albuterol Sulfate (Albuterol 0.083% Inhal Radha (2.5 Mg/3 Ml) Ud) 2.5 mg IH [id number] PRN PRN Reason: Cough and congestion Last Admin: 07/23/18 11:22 Dose: 2.5 mg Arformoterol Tartrate (Brovana) 15 mcg IH [id number] [facility] Last Admin: 07/27/18 07:22 Dose: 15 mcg Budesonide (Pulmicort Respules) 0.25 mg IH [id number] [facility] Last Admin: 07/27/18 07:22 Dose: 0.25 mg Cholecalciferol (Vitamin D) 1,000 intlu PO DAILY [facility] Clonazepam (Klonopin) 1 mg PO QID [facility] PRN Reason: Protocol Last Admin: 07/26/18 21:51 Dose: 1 mg Docusate Sodium (Colace) 100 mg PO BID [facility] Last Admin: 07/26/18 18:16 Dose: 100 mg Enoxaparin Sodium (Lovenox) 40 mg SC DAILY [facility] PRN Reason: Protocol Last Admin: 07/26/18 09:30 Dose: 40 mg Famotidine (Pepcid) 20 mg PO BID [facility] Last Admin: 07/26/18 18:18 Dose: 20 mg Folic Acid (Folic Acid) 1 mg PO DAILY [facility] Last Admin: 07/26/18 09:28 Dose: 1 mg Hydromorphone HCl (Dilaudid) 2 mg PO Q6H PRN PRN Reason: Pain, severe (8-10) Last Admin: 07/27/18 08:33 Dose: 2 mg Sodium Chloride (Sodium Chloride 0.9%) 1,000 mls @ 80 mls/hr IV .[id number] [facility] Last Admin: 07/27/18 06:21 Dose: 80 mls/hr Lidocaine (Lidoderm) 1 ea TD DAILY [facility] Last Admin: 07/26/18 10:49 Dose: Not Given Lorazepam (Ativan) 1 mg PO TID PRN; Protocol PRN Reason: Anxiety Last Admin: 07/27/18 08:33 Dose: 1 mg Metoprolol Succinate (Toprol Xl) 50 mg PO BRK [facility] Last Admin: 07/27/18 08:34 Dose: 50 mg Montelukast Sodium (Singulair) 10 mg PO HS [facility] Last Admin: 07/26/18 21:51 Dose: 10 mg Multivitamins/Minerals (Therapeutic-M Tab) 1 tab PO 1000 [facility] Last Admin: 07/26/18 09:27 Dose: 1 tab Non-Formulary Medication (Budesonide/Formoterol Fumarate [Symbicort 160-4.5 Mcg Inhaler]) 2 aer IH Q12 [facility] Last Admin: 07/26/18 10:48 Dose: Not Given Prednisone (Prednisone Tab) 10 mg PO DAILY [facility] Last Admin: 07/26/18 09:28 Dose: 10 mg Pregabalin (Lyrica) 25 mg PO TID [facility] Last Admin: 07/26/18 18:17 Dose: 25 mg Sodium Chloride (Sodium Chloride Tab) 1 gm PO WM [facility] Last Admin: 07/26/18 18:18 Dose: 1 gm Thiamine HCl (Vitamin B1 Tab) 100 mg PO DAILY [facility] Last Admin: 07/26/18 09:27 Dose: 100 mg Tiotropium [place] (Spiriva) 18 mcg INH DAILY [facility] Last Admin: 07/26/18 09:28 Dose: 18 mcg Vitamin B Complex/Vit C/Folic Acid (Nephro-Donnie) 1 tab PO 0800 [facility] Last Admin: 07/27/18 08:34 Dose: 1 tab - Labs Labs: 07/27/18 06:45 07/27/18 06:45 PT 10.8 SECONDS (9.4-12.5) 07/23/18 04:35 INR 0.95 07/23/18 04:35 APTT 27.7 Seconds (25.1-36.5) 07/23/18 04:35 - Constitutional Appears: No Acute Distress - Eye Exam Eye Exam: Normal appearance - ENT Exam ENT Exam: Mucous Membranes Moist - Respiratory Exam Respiratory Exam: Decreased Breath Sounds, Clear to Ausculation Bilateral, NORMAL BREATHING PATTERN - Cardiovascular Exam Cardiovascular Exam: +S1, +S2 - GI/Abdominal Exam GI & Abdominal Exam: Soft, Normal Bowel Sounds - Extremities Exam Extremities Exam: Normal Capillary Refill Additional comments: left hip surgery with abductor pillow - Neurological Exam Neurological Exam: Alert, Awake, Oriented x3 - Psychiatric Exam Psychiatric exam: Anxious - Skin Skin Exam: Intact, Warm Assessment and Plan - Assessment and Plan (Free Text) Assessment: A 63 year old male who came in to the ER due to left hip pain post fall. history of COPD, alcohol abuse, ex-smoker,anxiety. Consult was called to evaluate and cardiac clearance for surgery. Patient denies any chest pain. ECHO showed normal LV function, atrial septal aneurysm,LVEF 50%. 04/2018 Normal stress test.no evidence of ischemia or heart failure. Will clear patient for surgery, moderate risk cobsidering co-morbidities.Status post total left hip replacement POD#2. Stable. Plan: Status post total left hip replacement POD#2 Heart rate and blood pressure controlled Cardiac status stable postoperatively ID on consult for fever pulmonary on consult Continue current medications Continue current treatment Physical therapy Fall precaution Watch for alcohol withdrawal symptoms Will follow up Plan and treatment discussed with Dr. Juárez
[2018-07-27] MEDS: Non Formulary Medication (Budesonide/Formoterol Fumarate [Symbicort 160-4.5 Mcg Inhaler] 2 IH SCH (09:36)
--- NOTE | 2018-07-27 09:43 | RAD ---
Date of service: 07/27/2018 HISTORY: rule out pneumonia COMPARISON: No prior. FINDINGS: LUNGS: No active pulmonary disease. PLEURA: No significant pleural effusion identified, no pneumothorax apparent. CARDIOVASCULAR: Normal. OSSEOUS STRUCTURES: No significant abnormalities. VISUALIZED UPPER ABDOMEN: Normal. OTHER FINDINGS: None. IMPRESSION: No active disease.
[2018-07-27] MEDS: Lidocaine 5% Patch TD SCH (09:44)
[2018-07-27] MEDS: Tiotropium 18 mcg Cap For Inhalation INH SCH (09:45)
[2018-07-27] MEDS: Enoxaparin 40 mg Syringe SC SCH (09:47)
[2018-07-27] MEDS: Multivitamin With Minerals Tab PO SCH (09:47)
[2018-07-27] MEDS: Cholecalciferol 1,000 INTLU TAB PO SCH (09:48)
[2018-07-27] MEDS: Calcium-Vit D 250 mg-125 Units Tab UD PO SCH (14:20)
--- NOTE | 2018-07-27 14:40 | CP.PCM.PN ---
Subjective - Date & Time of Evaluation Date of Evaluation: 07/27/18 Time of Evaluation: 14:00 - Subjective Subjective: Patient seen and examined at bedside comfortable. Pain is well controlled. Notified by nurse that patient refused PT session. Patient states that he was not up to participating with PT due to feeling weak. Hip dressings were changed this morning by nurse. He denies CP/SOB/N/V/D/fever/dizziness. Objective - Vital Signs/Intake and Output Vital Signs (last 24 hours): Temp Pulse Resp BP Pulse Ox 98.7 F 98 H 18 123/68 98 07/27/18 06:00 07/27/18 08:34 07/27/18 06:00 07/27/18 08:34 07/27/18 06:00 Intake and Output: 07/27/18 07/27/18 06:59 18:59 Intake Total 180 Output Total 500 Balance -320 - Medications Medications: Current Medications Acetaminophen (Tylenol 325mg Tab) 650 mg PO Q4H PRN PRN Reason: Fever >100.4 F Acetylcysteine (Acetylcysteine 20%) 4 ml IH [id number] [facility] Last Admin: 07/27/18 07:21 Dose: 4 ml Albuterol Sulfate (Albuterol 0.083% Inhal Radha (2.5 Mg/3 Ml) Ud) 2.5 mg IH [id number] PRN PRN Reason: Cough and congestion Last Admin: 07/23/18 11:22 Dose: 2.5 mg Arformoterol Tartrate (Brovana) 15 mcg IH [id number] [facility] Last Admin: 07/27/18 07:22 Dose: 15 mcg Budesonide (Pulmicort Respules) 0.25 mg IH [id number] [facility] Last Admin: 07/27/18 07:22 Dose: 0.25 mg Calcium/Vitamin D (Oscal-D 250 Mg-125 Units Tab) 1 tab PO DAILY [facility] Last Admin: 07/27/18 14:20 Dose: 1 tab Cholecalciferol (Vitamin D) 1,000 intlu PO DAILY [facility] Last Admin: 07/27/18 09:48 Dose: 1,000 intlu Clonazepam (Klonopin) 1 mg PO QID [facility] PRN Reason: Protocol Last Admin: 07/27/18 14:19 Dose: 1 mg Docusate Sodium (Colace) 100 mg PO BID [facility] Last Admin: 07/27/18 09:49 Dose: 100 mg Enoxaparin Sodium (Lovenox) 40 mg SC DAILY [facility] PRN Reason: Protocol Last Admin: 07/27/18 09:47 Dose: 40 mg Famotidine (Pepcid) 20 mg PO BID [facility] Last Admin: 07/27/18 09:48 Dose: 20 mg Folic Acid (Folic Acid) 1 mg PO DAILY [facility] Last Admin: 07/27/18 09:48 Dose: 1 mg Hydromorphone HCl (Dilaudid) 2 mg PO Q6H PRN PRN Reason: Pain, severe (8-10) Last Admin: 07/27/18 14:19 Dose: 2 mg Sodium Chloride (Sodium Chloride 0.9%) 1,000 mls @ 80 mls/hr IV .[id number] [facility] Last Admin: 07/27/18 06:21 Dose: 80 mls/hr Lidocaine (Lidoderm) 1 ea TD DAILY [facility] Last Admin: 07/27/18 09:44 Dose: 1 ea Lorazepam (Ativan) 1 mg PO TID PRN; Protocol PRN Reason: Anxiety Last Admin: 07/27/18 08:33 Dose: 1 mg Metoprolol Succinate (Toprol Xl) 50 mg PO BRK [facility] Last Admin: 07/27/18 08:34 Dose: 50 mg Montelukast Sodium (Singulair) 10 mg PO HS [facility] Last Admin: 07/26/18 21:51 Dose: 10 mg Multivitamins/Minerals (Therapeutic-M Tab) 1 tab PO 1000 [facility] Last Admin: 07/27/18 09:47 Dose: 1 tab Non-Formulary Medication (Budesonide/Formoterol Fumarate [Symbicort 160-4.5 Mcg Inhaler]) 2 aer IH Q12 [facility] Last Admin: 07/26/18 10:48 Dose: Not Given Prednisone (Prednisone Tab) 10 mg PO DAILY [facility] Last Admin: 07/27/18 09:49 Dose: 10 mg Pregabalin (Lyrica) 25 mg PO TID [facility] Last Admin: 07/27/18 14:22 Dose: 25 mg Sodium Chloride (Sodium Chloride Tab) 1 gm PO WM [facility] Last Admin: 07/27/18 09:51 Dose: 1 gm Thiamine HCl (Vitamin B1 Tab) 100 mg PO DAILY [facility] Last Admin: 07/27/18 09:53 Dose: 100 mg Tiotropium [place] (Spiriva) 18 mcg INH DAILY [facility] Last Admin: 07/27/18 09:45 Dose: 18 mcg Vitamin B Complex/Vit C/Folic Acid (Nephro-Donnie) 1 tab PO 0800 [facility] Last Admin: 07/27/18 08:34 Dose: 1 tab - Labs Labs: 07/27/18 06:45 07/27/18 06:45 PT 10.8 SECONDS (9.4-12.5) 07/23/18 04:35 INR 0.95 07/23/18 04:35 APTT 27.7 Seconds (25.1-36.5) 07/23/18 04:35 - Extremities Exam Additional comments: L hip: Dry dressings CDI, wound intact with deloris, minimal sang drainage seen on dressings, no active draining. Superior navigation dressings with mild sang drainage. sensation intact SP/DP/TN motor intact EHL/FHL/TA/G pedal pulses intact comps soft NT Assessment and Plan (1) Closed displaced fracture of left femoral neck Assessment & Plan: POD#2 s/p L DANTE -pain control -time was spent explaining rehabilitation and encouraging the patient to participate with his rehabilitation. He agrees to participate with PT tomorrow AM. -PT/OT PWB -dry dressings change as needed -posterior hip precautions, abd pillow -DVT ppx -patient is to f/u with Dr. Kim/Vaishnavi within 7-10 of discharge -orthopedically stable for discharge to rehab -above d/w Dr. Riggins, covering for Dr. Kim, in agreement Status: Acute
[2018-07-27] MEDS ORDERED: Potassium Chloride 20 mEq ER Tab PO ONE (15:22)
--- NOTE | 2018-07-27 18:44 | US ---
HISTORY: Leg pain and swelling. Evaluate for DVT PHYSICIAN(S): Aditya Duran MD. TECHNIQUE: Duplex sonography and color-flow Doppler with graded compression were used to evaluate the deep venous systems of both lower extremities. FINDINGS: The visualized deep venous systems of both lower extremities are sonographically normal and compressible. Normal wave forms and augmentation are seen. There is no sonographic evidence for deep venous thrombosis in the visualized segments of both lower extremities. IMPRESSION: No sonographic evidence for deep venous thrombosis in the visualized segments of both lower extremities.
--- NOTE | 2018-07-27 20:34 | PN ---
DATE: 07/27/2018 PULMONARY PROGRESS NOTE REFERRING PHYSICIAN: Susanne Banks MD SUBJECTIVE: The patient is sitting up in bed. Night was unremarkable. Refused to get out of bed to chair today. Breathing is okay. No chest pain. No withdrawal symptoms. No abdominal pain. Does have a left hip discomfort. No leg swelling. OBJECTIVE: GENERAL: In no acute distress. VITAL SIGNS: Temperature is 99, heart rate is 104, respiratory rate is 18, blood pressure 104/67, pulse ox is 97% on room air. HEENT: Moist mucous membranes. No ulcer or thrush noted. NECK: Supple. No JVD. LUNGS: Have a few crackles at the bases. Scattered rhonchi. HEART: S1 and S2. ABDOMEN: Soft, nontender. No organomegaly. EXTREMITIES: No edema. Left hip has some tenderness. Has dressing on the incision site. NEUROLOGICAL: Awake and alert. Follows simple command. MEDICATIONS: He is on Mucomyst 20% inhaled twice a day, albuterol/Atrovent nebulizer every 6 hours p.r.n., lorazepam 1 mg three times a day p.r.n., Brovana inhaled twice a day [id number], Colace 100 mg twice a day, Dilaudid 2 mg every 6 hours p.r.n., folic acid 1 mg daily, clonazepam 1 mg q.i.d., Lidoderm patch to affected area daily, Lovenox 40 mg subcu daily, Lyrica 25 mg three times a day, Pepcid 20 mg twice a day, prednisone 10 mg daily, Pulmicort inhaled twice a day, budesonide 0.25 mg twice a day, Singulair 10 mg daily, sodium chloride 1 g with the meals, Spiriva 1 capsule inhaled daily, multivitamins daily, Toprol-XL 50 mg daily, Tylenol p.r.n., vitamin B1 100 mg daily, vitamin D 1000 mcg daily. LABORATORY DATA: Shows hemoglobin 9, hematocrit 26, WBC 9.9, platelet count is 181. Sodium 130, potassium 3.7, chloride 96, bicarbonate is 27, BUN 5, creatinine 0.5, glucose of 100, calcium is 7.9. Has a venous Doppler of lower extremity done today, which shows no evidence of DVT of the lower extremity. IMPRESSION AND PLAN: Status post fall with hip fracture requiring a hip replacement, anxiety disorder, chronic obstructive lung disease, hyponatremia, history of fall with multiple rib fracture. Pulmonary point of view, doing okay. Try to avoid free water. Continue supplement sodium. Follow up electrolytes, bronchodilator, pain management. Gastric and deep vein thrombosis prophylaxis. The patient is encouraged to get out of bed to chair and also participate in therapy. Thank you and we will follow with you. Nancy Lr MD
[2018-07-28] MEDS: Arformoterol 15 mcg/2 ml Inh Sol IH SCH (07:09)
[2018-07-28] MEDS: Acetylcysteine 20% Inhal Soln (4ml) IH SCH (07:09)
[2018-07-28] MEDS: Budesonide 0.25 mg/2 ml Inhal Susp UD IH SCH (07:10)
[2018-07-28 07:13] LABS: HEMOGLOBIN 8.5 g/dL (14.0-18.0); MEAN CELL VOLUME 97.3 fl (80.0-105.0); MEAN CORPUSCULAR HEMOGLOBIN 33.1 pg (25.0-35.0); MEAN PLATELET VOLUME 9.6 fl (7.0-11.0); RBC 2.57 10^6/uL (3.5-6.1); RED CELL DISTRIBUTION WIDTH 12.9 % (11.5-14.5); WHITE BLOOD COUNT 8.6 10^3/ul (4.5-11.0)
--- NOTE | 2018-07-28 07:21 | CP.PCM.PN ---
Subjective - Date & Time of Evaluation Date of Evaluation: 07/28/18 Time of Evaluation: 06:25 - Subjective Subjective: No distress,easily awaken,calm Reason for consultation and follow up: Cardiac evaluation and clearance for pre- op left hip surgery, post fall, history of COPD, alcohol abuse,ex-smoker, post left hip surgery Seen and examined by me and Objective - Vital Signs/Intake and Output Vital Signs (last 24 hours): Temp Pulse Resp BP Pulse Ox 99.3 F 104 H 17 104/67 97 07/27/18 14:00 07/27/18 14:00 07/27/18 14:00 07/27/18 14:00 07/27/18 14:00 Intake and Output: 07/28/18 07/28/18 06:59 18:59 Intake Total 480 Output Total 400 Balance 80 - Medications Medications: Current Medications Acetaminophen (Tylenol 325mg Tab) 650 mg PO Q4H PRN PRN Reason: Fever >100.4 F Acetylcysteine (Acetylcysteine 20%) 4 ml IH [id number] [facility] Last Admin: 07/28/18 07:09 Dose: 4 ml Albuterol Sulfate (Albuterol 0.083% Inhal Radha (2.5 Mg/3 Ml) Ud) 2.5 mg IH [id number] PRN PRN Reason: Cough and congestion Last Admin: 07/23/18 11:22 Dose: 2.5 mg Arformoterol Tartrate (Brovana) 15 mcg IH [id number] [facility] Last Admin: 07/28/18 07:09 Dose: 15 mcg Budesonide (Pulmicort Respules) 0.25 mg IH [id number] [facility] Last Admin: 07/28/18 07:10 Dose: 0.25 mg Calcium/Vitamin D (Oscal-D 250 Mg-125 Units Tab) 1 tab PO DAILY [facility] Last Admin: 07/27/18 14:20 Dose: 1 tab Cholecalciferol (Vitamin D) 1,000 intlu PO DAILY [facility] Last Admin: 07/27/18 09:48 Dose: 1,000 intlu Clonazepam (Klonopin) 1 mg PO QID [facility] PRN Reason: Protocol Last Admin: 07/27/18 21:01 Dose: 1 mg Docusate Sodium (Colace) 100 mg PO BID [facility] Last Admin: 07/27/18 17:23 Dose: 100 mg Enoxaparin Sodium (Lovenox) 40 mg SC DAILY [facility] PRN Reason: Protocol Last Admin: 07/27/18 09:47 Dose: 40 mg Famotidine (Pepcid) 20 mg PO BID [facility] Last Admin: 07/27/18 17:22 Dose: 20 mg Folic Acid (Folic Acid) 1 mg PO DAILY [facility] Last Admin: 07/27/18 09:48 Dose: 1 mg Hydromorphone HCl (Dilaudid) 2 mg PO Q6H PRN PRN Reason: Pain, severe (8-10) Last Admin: 07/27/18 21:01 Dose: 2 mg Lidocaine (Lidoderm) 1 ea TD DAILY [facility] Last Admin: 07/26/18 10:49 Dose: Not Given Lorazepam (Ativan) 1 mg PO TID PRN; Protocol PRN Reason: Anxiety Last Admin: 07/27/18 08:33 Dose: 1 mg Metoprolol Succinate (Toprol Xl) 50 mg PO BRK [facility] Last Admin: 07/27/18 08:34 Dose: 50 mg Montelukast Sodium (Singulair) 10 mg PO HS [facility] Last Admin: 07/27/18 21:02 Dose: 10 mg Multivitamins/Minerals (Therapeutic-M Tab) 1 tab PO 1000 [facility] Last Admin: 07/27/18 09:47 Dose: 1 tab Non-Formulary Medication (Budesonide/Formoterol Fumarate [Symbicort 160-4.5 Mcg Inhaler]) 2 aer IH Q12 [facility] Last Admin: 07/27/18 09:36 Dose: Not Given Prednisone (Prednisone Tab) 10 mg PO DAILY [facility] Last Admin: 07/27/18 09:49 Dose: 10 mg Pregabalin (Lyrica) 25 mg PO TID [facility] Last Admin: 07/27/18 14:22 Dose: 25 mg Sodium Chloride (Sodium Chloride Tab) 1 gm PO WM [facility] Last Admin: 07/27/18 17:22 Dose: 1 gm Thiamine HCl (Vitamin B1 Tab) 100 mg PO DAILY [facility] Last Admin: 07/27/18 09:53 Dose: 100 mg Tiotropium [place] (Spiriva) 18 mcg INH DAILY [facility] Last Admin: 07/27/18 09:45 Dose: 18 mcg Vitamin B Complex/Vit C/Folic Acid (Nephro-Donnie) 1 tab PO 0800 [facility] Last Admin: 07/27/18 08:34 Dose: 1 tab - Labs Labs: 07/28/18 06:30 07/27/18 06:45 PT 10.8 SECONDS (9.4-12.5) 07/23/18 04:35 INR 0.95 07/23/18 04:35 APTT 27.7 Seconds (25.1-36.5) 07/23/18 04:35 - Constitutional Appears: No Acute Distress - Eye Exam Eye Exam: Normal appearance - ENT Exam ENT Exam: Mucous Membranes Moist - Respiratory Exam Respiratory Exam: Decreased Breath Sounds, Clear to Ausculation Bilateral - Cardiovascular Exam Cardiovascular Exam: +S1, +S2 - GI/Abdominal Exam GI & Abdominal Exam: Soft, Normal Bowel Sounds - Extremities Exam Additional comments: left hip dressing with abductor pillow - Neurological Exam Neurological Exam: Alert, Awake, Oriented x3 - Psychiatric Exam Psychiatric exam: Normal Affect - Skin Skin Exam: Dry, Warm Assessment and Plan - Assessment and Plan (Free Text) Assessment: A 63 year old male who came in to the ER due to left hip pain post fall. history of COPD, alcohol abuse, ex-smoker,anxiety. Consult was called to evaluate and cardiac clearance for surgery. Patient denies any chest pain. ECHO showed normal LV function, atrial septal aneurysm,LVEF 50%. 04/2018 Normal stress test.no evidence of ischemia or heart failure. Will clear patient for surgery, moderate risk considering co-morbidities.Status post total left hip replacement POD#3. Stable.Refused physical therapy. Plan: Heart rate and blood pressure controlled Status post total left hip replacement POD#3 Cardiac status stable ID on consult for fever Pulmonary on consult Doppler studies of lower extremities negative for DVT due to leg swelling Refusing physical therapy/OOB to chair Continue current medications Continue current treatment For Physical therapy Fall precaution Watch for alcohol withdrawal symptoms Discharge planning Will follow up Plan and treatment discussed with Dr. Juárez
[2018-07-28 07:37] LABS: BLOOD UREA NITROGEN 6 mg/dL (7-21); CALCIUM 8.2 mg/dL (8.4-10.5); GFR NON-AFRICAN AMERICAN > 60
[2018-07-28 08:00] VITALS: BP 129/73; PULSE 91; RESP 20; TEMP 98.6; O2SAT 98
--- NOTE | 2018-07-28 08:01 | CP.PCM.PN ---
<AngellaZahra - Last Filed: 07/28/18 11:35> Subjective - Date & Time of Evaluation Date of Evaluation: 07/28/18 Time of Evaluation: 08:00 - Subjective Subjective: Pgy3 ID Progress note for Dr. Hoffman Patient seen and examined at bedside. Nursing reported no acute events overnight. Patient has been afebrile and denied acute complaints of headache, dizziness, fever, chills, chest pain, palpitations, SOB, cough, abd pain, nausea , vomiting, dysuria, hematuria, pain/swelling in his legs b/l. Patient reports no BM in 4 days but does not want to go in the bed [place]. He has been tolerating PO intake. Patient remains anxious and is to be discharged to [facility] today. Objective - Vital Signs/Intake and Output Vital Signs (last 24 hours): Temp Pulse Resp BP Pulse Ox 98.6 F 91 H 20 129/73 98 07/28/18 06:00 07/28/18 06:00 07/28/18 06:00 07/28/18 06:00 07/28/18 06:00 Intake and Output: 07/28/18 07/28/18 06:59 18:59 Intake Total 480 Output Total 400 Balance 80 - Medications Medications: Current Medications Acetaminophen (Tylenol 325mg Tab) 650 mg PO Q4H PRN PRN Reason: Fever >100.4 F Acetylcysteine (Acetylcysteine 20%) 4 ml IH [id number] [facility] Last Admin: 07/28/18 07:09 Dose: 4 ml Albuterol Sulfate (Albuterol 0.083% Inhal Radha (2.5 Mg/3 Ml) Ud) 2.5 mg IH [id number] PRN PRN Reason: Cough and congestion Last Admin: 07/23/18 11:22 Dose: 2.5 mg Arformoterol Tartrate (Brovana) 15 mcg IH [id number] [facility] Last Admin: 07/28/18 07:09 Dose: 15 mcg Budesonide (Pulmicort Respules) 0.25 mg IH [id number] [facility] Last Admin: 07/28/18 07:10 Dose: 0.25 mg Calcium/Vitamin D (Oscal-D 250 Mg-125 Units Tab) 1 tab PO DAILY [facility] Last Admin: 07/27/18 14:20 Dose: 1 tab Cholecalciferol (Vitamin D) 1,000 intlu PO DAILY [facility] Last Admin: 07/27/18 09:48 Dose: 1,000 intlu Clonazepam (Klonopin) 1 mg PO QID [facility] PRN Reason: Protocol Last Admin: 07/27/18 21:01 Dose: 1 mg Docusate Sodium (Colace) 100 mg PO BID [facility] Last Admin: 07/27/18 17:23 Dose: 100 mg Enoxaparin Sodium (Lovenox) 40 mg SC DAILY [facility] PRN Reason: Protocol Last Admin: 07/27/18 09:47 Dose: 40 mg Famotidine (Pepcid) 20 mg PO BID [facility] Last Admin: 07/27/18 17:22 Dose: 20 mg Folic Acid (Folic Acid) 1 mg PO DAILY [facility] Last Admin: 07/27/18 09:48 Dose: 1 mg Hydromorphone HCl (Dilaudid) 2 mg PO Q6H PRN PRN Reason: Pain, severe (8-10) Last Admin: 07/27/18 21:01 Dose: 2 mg Lidocaine (Lidoderm) 1 ea TD DAILY [facility] Last Admin: 07/26/18 10:49 Dose: Not Given Lorazepam (Ativan) 1 mg PO TID PRN; Protocol PRN Reason: Anxiety Last Admin: 07/27/18 08:33 Dose: 1 mg Metoprolol Succinate (Toprol Xl) 50 mg PO BRK [facility] Last Admin: 07/27/18 08:34 Dose: 50 mg Montelukast Sodium (Singulair) 10 mg PO HS [facility] Last Admin: 07/27/18 21:02 Dose: 10 mg Multivitamins/Minerals (Therapeutic-M Tab) 1 tab PO 1000 [facility] Last Admin: 07/27/18 09:47 Dose: 1 tab Non-Formulary Medication (Budesonide/Formoterol Fumarate [Symbicort 160-4.5 Mcg Inhaler]) 2 aer IH Q12 [facility] Last Admin: 07/27/18 09:36 Dose: Not Given Prednisone (Prednisone Tab) 10 mg PO DAILY [facility] Last Admin: 07/27/18 09:49 Dose: 10 mg Pregabalin (Lyrica) 25 mg PO TID [facility] Last Admin: 07/27/18 14:22 Dose: 25 mg Sodium Chloride (Sodium Chloride Tab) 1 gm PO WM [facility] Last Admin: 07/27/18 17:22 Dose: 1 gm Thiamine HCl (Vitamin B1 Tab) 100 mg PO DAILY [facility] Last Admin: 07/27/18 09:53 Dose: 100 mg Tiotropium [place] (Spiriva) 18 mcg INH DAILY [facility] Last Admin: 07/27/18 09:45 Dose: 18 mcg Vitamin B Complex/Vit C/Folic Acid (Nephro-Odnnie) 1 tab PO 0800 [facility] Last Admin: 07/27/18 08:34 Dose: 1 tab - Labs Labs: 07/28/18 06:30 07/28/18 06:30 PT 10.8 SECONDS (9.4-12.5) 07/23/18 04:35 INR 0.95 07/23/18 04:35 APTT 27.7 Seconds (25.1-36.5) 07/23/18 04:35 - Constitutional Appears: Non-toxic, No Acute Distress - Head Exam Head Exam: ATRAUMATIC, NORMAL INSPECTION, NORMOCEPHALIC - Eye Exam Eye Exam: EOMI, Normal appearance, PERRL. absent: Conjunctival injection, Scleral icterus Pupil Exam: NORMAL ACCOMODATION - ENT Exam ENT Exam: Mucous Membranes Moist - Neck Exam Neck Exam: Full ROM, Normal Inspection - Respiratory Exam Respiratory Exam: Clear to Ausculation Bilateral, NORMAL BREATHING PATTERN. absent: Accessory Muscle Use, Rales, Rhonchi, Wheezes, Respiratory Distress - Cardiovascular Exam Cardiovascular Exam: +S1, +S2 - GI/Abdominal Exam GI & Abdominal Exam: Soft, Normal Bowel Sounds. absent: Firm, Guarding, Rigid, Tenderness - Rectal Exam Rectal Exam: Deferred - Extremities Exam Extremities Exam: absent: Pedal Edema - Neurological Exam Neurological Exam: Alert, Awake, Oriented x3 - Psychiatric Exam Psychiatric exam: Anxious - Skin Skin Exam: Dry, Intact, Normal Color, Warm Assessment and Plan - Assessment and Plan (Free Text) Assessment: 63 yo male PMHx anxiety and COPD presented [place] [facility] [place] 07[place] s/p mecahnical fall. Patient was found to have L hip femoral neck fracture and was taken to the OR. Today patient is POD#3 left total hip replacement. Postop patient had a recorded temperature of 102F on 07/26. ID was consulted for post op fever. Plan: -Patient had temp 102F recorded on 07/26 at 19:36 after which he did not receive any anti-pyretic. Repeat temp on 07/26 at 20:30 was 98.6F -patient has been afebrile throughout hospital course and denied subjective fever/chills -CXR 07/27: unremarkable -patient encouarged to continue using IS -blood cultures prelim negative x 2 -procal: 0.31 -f/u urine culture -b/l LE dopplers negative for DVT -at this time monitor patient off abx -continue management as per primary Discussed with Dr. Yasmin Perales PGY3 <Jesus Alberto Hoffman - Last Filed: 07/28/18 15:30> Objective - Vital Signs/Intake and Output Vital Signs (last 24 hours): Temp Pulse Resp BP Pulse Ox 98.6 F 91 H 20 129/73 98 07/28/18 06:00 07/28/18 08:04 07/28/18 06:00 07/28/18 08:04 07/28/18 06:00 Intake and Output: 07/28/18 07/28/18 06:59 18:59 Intake Total 480 Output Total 400 Balance 80 - Labs Labs: 07/28/18 10:15 07/28/18 06:30 PT 10.8 SECONDS (9.4-12.5) 07/23/18 04:35 INR 0.95 07/23/18 04:35 APTT 27.7 Seconds (25.1-36.5) 07/23/18 04:35 Assessment and Plan - Assessment and Plan (Free Text) Plan: Infectious Diseases Attending Physician Addendum Patient seen and examined, discussed with electromedical equipment technician. I have reviewed the pertinent clinical information for the patient, including history of present illness, medical, personal and social histories, lab results and imaging findings. I agree with the above findings, assessment and plan. In addition, blood cx are negative, patient has no urinary symptoms, PCT is only 0.31. Patient with possible post-op fever (post-left total hip replacement). Surgical site looks clean. Will continue to monitor off antibiotics.
[2018-07-28] MEDS: Metoprolol Succinate 50 mg XL Tab PO SCH (08:04)
[2018-07-28] MEDS: Multivitamin Vitamin B Complex (Nephro-Vite) Tab PO SCH (08:05)
--- NOTE | 2018-07-28 08:22 | PN ---
DATE: 07/27/2018 SUBJECTIVE: This is a 63-year-old male. Patient was seen and examined on the bedside on 07/27/2018, looking comfortable. Complaining about pain at the site of the fracture. Breathing is okay. Cough is better. No shortness of breath. No more withdrawal symptoms. No abdominal pain. No hematuria or hematochezia. No swelling of the legs. No fever. No chills. PHYSICAL EXAMINATION: VITAL SIGNS: Temperature 99, heart rate 104, respiratory rate 18, blood pressure is 104/67. HEENT: Head: Normocephalic, atraumatic. Eyes: PERRLA. Extraocular muscles intact. Conjunctivae clear. Nose patent. Mucous membranes moist. NECK: Supple. No carotid bruit. No JVD or thyromegaly. CHEST: Bilaterally symmetrical. HEART: S1 and S2 positive. LUNGS: Clear to auscultation. ABDOMEN: Soft Bowel sounds present. No organomegaly. EXTREMITIES: No edema. No cyanosis. NEUROLOGICAL: Patient is awake and alert. Follows simple command. MEDICATIONS: Mucomyst, albuterol, lorazepam, Dilaudid, Lovenox, Pulmicort, Toprol, Tylenol, B1. LABORATORY DATA: Hemoglobin 9, hematocrit 26, white blood cells 10.9, platelets 181. Sodium 130, potassium 3.7, BUN 5, creatinine 0.5, glucose 100. ASSESSMENT AND PLAN: Mr. Kody Schultz with a history of multiple medical problems related to alcohol, also multiple falls, chronic obstructive lung disease, hip replacement surgery, anxiety disorder, hyponatremia, history of fall with multiple rib fractures according to family. Gastric and deep venous thrombosis prophylaxes. Follow up electrolytes and bronchodilators. Plan is to send patient to [facility] today. But just when I get, fever 100 plus, so we are observing 24 hours for further vitals. If no fever in 24 hours, maybe tomorrow patient will go to [facility] for physical therapy. Meanwhile, continue present treatment. Repeat labs. We will follow up. Susanne Banks MD
[2018-07-28] MEDS: Cholecalciferol 1,000 INTLU TAB PO SCH (09:48)
[2018-07-28] MEDS: Tiotropium 18 mcg Cap For Inhalation INH SCH (09:48)
[2018-07-28] MEDS: Calcium-Vit D 250 mg-125 Units Tab UD PO SCH (09:49)
[2018-07-28] MEDS: Multivitamin With Minerals Tab PO SCH (09:49)
[2018-07-28] MEDS: Non Formulary Medication (Budesonide/Formoterol Fumarate [Symbicort 160-4.5 Mcg Inhaler] 2 IH SCH (09:51)
[2018-07-28] MEDS: Lidocaine 5% Patch TD SCH (09:55)
[2018-07-28 10:24] LABS: HEMOGLOBIN 8.7 g/dL (14.0-18.0)
[2018-07-28] MEDS: Enoxaparin 40 mg Syringe SC SCH (11:22)
== END 2018-07-28 13:49 | DRG 470 ==
LOC: ED 04:06 → ERH 08:48 → 5RSO 09:42 → 5RNO 07-25 17:55
PROVIDERS: ADMIT Internal Medicine; ATTEND Internal Medicine
PROC: 3E0F7GC Introduction of Other Therapeutic Substance into Respiratory Tract, Via Natural or Artificial Opening (ICD-10-PCS; 2018-07-23)
PROC: 0SRB03Z Replacement of Left Hip Joint with Ceramic Synthetic Substitute, Open Approach (ICD-10-PCS; principal; 2018-07-25 14:00)
DX: S72.002A Fracture of unspecified part of neck of left femur, initial encounter for closed fracture (principal); F10.239 Alcohol dependence with withdrawal, unspecified; E87.1 Hypo-osmolality and hyponatremia; J44.9 Chronic obstructive pulmonary disease, unspecified; F41.9 Anxiety disorder, unspecified; R29.6 Repeated falls; D64.9 Anemia, unspecified; E83.39 Other disorders of phosphorus metabolism; E87.8 Other disorders of electrolyte and fluid balance, not elsewhere classified; R50.82 Postprocedural fever; E16.2 Hypoglycemia, unspecified; W01.0XXA Fall on same level from slipping, tripping and stumbling without subsequent striking against object, initial encounter; Z79.51 Long term (current) use of inhaled steroids; Y92.009 Unspecified place in unspecified non-institutional (private) residence as the place of occurrence of the external cause; Z87.891 Personal history of nicotine dependence